=== PATIENT | female | born 1945 | race Caucasian/White ===

== ENCOUNTER 2022-08-21 16:07 | Inpatient (IN) | payer MEDICARE, OTHER ==
[~2022-08-21] VITALS: Ht 157.5 cm; Wt 86.2 kg
[2022-08-21] VITALS (8 sets, daily range): BP systolic 93–116; BP diastolic 31–64; PULSE 43–82; RESP 16–25; TEMP 96.9; O2SAT 91–100
--- NOTE | 2022-08-21 16:10 | NUR ---
PT BIBA TRACHED WITH PORTEX 8.0. PT VENT SETTINGS AC/PRVC MHC934% VT350 RR16 +5 ALARMS ARE SET AND AUDIBLE TO ENVIROMENT . VENT IS PLUGGED INTO RED OUTLET, BRAKE IS ON, AMBU BAG AT BEDSIDE. PT HAS THICK AMOUNT OF BLOOD TINGED YELLOW SECRETIONS. BREATH SOUNDS ARE COARSE WITH GOOD CHEST RISE NOTED. ER DOCTOR ERNESTINA NOTIFIED. WILL CONTINUE TO MONITOR PT THROUGHOUT SHIFT.
--- NOTE | 2022-08-21 16:35 | NUR ---
77 yo/f biba from [facility] w c/o desat to low 80s on baseline vent settings xapprox 2 hours ago. pt now w updated vent settings of fio2 65% rate 16, vt 350 prvc o2 sat 90-93% other vss. pt trach to vent, awake gcs 10, gtube, BL arms edematous, BL peguero wounds +coccyx wound. pmh: RESP FAILURE, ESRD, DM, QUADRAPLEGIA, STROKE (SEE CHART)
--- NOTE | 2022-08-21 17:00 | NUR ---
VENT SETTINGS OF FIO2 65% RATE 16, VT 350, PRVC O2 SAT 93%.
[2022-08-21 17:10] LABS: BASOPHILS # (AUTO) 0.1 K/uL (0.00-0.22); BASOPHILS % (AUTO) 0.4 % (0.0-2.0); EOSINOPHILS # (AUTO) 0.1 K/uL (0-0.4); EOSINOPHILS % (AUTO) 0.7 % (0.0-4.0); HEMATOCRIT 26.3 % (36-48); HEMOGLOBIN 8.5 g/dL (12.0-16.0); LYMPHOCYTES # (AUTO) 2.6 K/uL (2.5-16.5); MEAN CORPUSCULAR HEMOGLOBIN 32 pg (27-31); MEAN CORPUSCULAR HGB CONC 32 g/dL (33-37); MEAN CORPUSCULAR VOLUME 97.7 fL (80-94); MONOCYTES # (AUTO) 1.4 K/uL (0.8-1.0); MONOCYTES % (AUTO) 9.7 % (1.7-9.3); NEUTROPHILS # (AUTO) 10.2 K/uL (1.8-7.7); NEUTROPHILS % (AUTO) 71.2 % (42.2-75.2); PLATELET COUNT (AUTO) 278 K/uL (140-450); RED BLOOD CELL COUNT(AUTO) 2.69 MIL/uL (4.20-5.40); RED CELL DISTRIBUTION WIDTH 20.1 % (11.6-13.7); WHITE BLOOD COUNT (AUTO) 14.3 K/uL (4.8-10.8)
[2022-08-21 17:25] LABS: ALBUMIN 1.5 g/dL (3.4-5.0); ANION GAP 8.7 (8-16); ASPARTATE AMINOTRANSFERASE 19 U/L (15-37); CARBON DIOXIDE 34.7 mmol/L (21-32); CHLORIDE 99 mmol/L (98-107); CREATININE 2.5 mg/dL (0.6-1.3); GLUCOSE 113 mg/dL (74-106); POTASSIUM 3.4 mmol/L (3.5-5.1); SODIUM SERUM 139 mmol/L (136-145); TOTAL BILIRUBIN 0.5 mg/dL (0.0-1.0); UREA NITROGEN, BLOOD 38 mg/dL (7-18)
[2022-08-21 17:31] LABS: PROTHROMBIN TIME 11.1 secs (10.8-13.4)
[2022-08-21 17:33] LABS: THYROID STIMULATING HORMONE 43.25 uIU/mL (0.34-3.74)
--- NOTE | 2022-08-21 17:37 | NUR ---
NANCY SWAB COLLECTED AND SENT TO LAB.
--- NOTE | 2022-08-21 17:52 | NUR ---
XRAY AT BEDSIDE
[2022-08-21] MEDS ORDERED: VANCOMYCIN 1,000 MG in DEXTROSE 5% 250 ML IV ONE (18:10)
--- NOTE | 2022-08-21 18:30 | NUR ---
Note maude in EDM - 08/21/22 at 1847 by [id number] # 16 FR Mckeon catheter with 10 ml utilizing sterile technique. Immediate return of 5 ml THICK YELLOW urine noted. Bedside drainage bag placed below level of bladder. Urine sample collected and sent to lab. Pt tolerated procedure WELL.
--- NOTE | 2022-08-21 18:30 | NUR ---
# 16 FR Mckeon catheter with 10 ml utilizing sterile technique. Immediate return of 5 ml THICK YELLOW urine noted. Bedside drainage bag placed below level of bladder. Urine sample collected and sent to lab. Pt tolerated procedure WELL. INSERTED BY KRYSTAL SANDOVAL.
--- NOTE | 2022-08-21 18:46 | NUR ---
WOUND PHOTOS TAKEN AND SENT TO CHARGE
--- NOTE | 2022-08-21 19:04 | NUR ---
DEEPALI CRAIN IN REGARDS TO PT BP.
[2022-08-21] MEDS ORDERED: NACL 0.9% 1,000 ML IV SCH (19:10)
[2022-08-21] MEDS ORDERED: VANCOMYCIN PER PHARMACY MC PRN (19:10)
--- NOTE | 2022-08-21 19:20 | NUR ---
REPORT TO KRYSTAL BRODERICK, ABX CEFTAZIDIME HANDED TO KRYSTAL FRANCE.
[2022-08-21] MEDS ORDERED: ZINC-31 (19:33)
[2022-08-21] MEDS ORDERED: ZINC220C9 PO (19:33)
[2022-08-21] MEDS ORDERED: NEP PO (19:36)
[2022-08-21] MEDS ORDERED: METO-485 PO (19:38)
[2022-08-21] MEDS ORDERED: FERR75LI22 PO (19:40)
[2022-08-21] MEDS ORDERED: VANCOMYCIN 1,000 MG VIAL ONE (19:48)
--- NOTE | 2022-08-21 20:10 | NUR ---
Patient will be admitted to care of Dr. Corral. Admited to ICU. Will go to room 6. Belongings list completed. Report to Patricia RICE.
--- NOTE | 2022-08-21 20:30 | NUR ---
RECEIVED REPORT FROM ER NURSE ROMÁN, PT TRACH TO VENT. AC/VC- FIO2-65 %, VT-350, RATE-16, PEEP-6. RESPIRATION EVEN AND UNLABORED. ACCESSES ON THE LEFT IJ 18G, LEFT FOOT 24G. SKIN WARM AND DRY. PITTING EDEMA +3 OBSERVED TO EXTREMITIES. SEE WOUND DOCUMENTATION. LEWIS CATHETER IN PLACE WITH PUS LIKE OBSERVED ON THE TIP. SAFETY MEASURES IN PLACE.
[2022-08-21] MEDS ORDERED: PIPERACILLIN/TAZOBACTAM 3.375 GM in DEXTROSE 5% 50 ML IV SCH (21:00)
[2022-08-21] MEDS ORDERED: PIPERACILLIN/TAZOBACTAM 2.25 GM VIAL IV ONE (21:15)
--- NOTE | 2022-08-21 21:17 | NUR ---
PHONE CALL TO PTS STANLEY AYERS [phone]; NO ANSWER,LEFT MESSAGE TO CALL CALENDER ROLL OPERATOR FOR ADDITIONAL INFORMATIONS RE PTS HX
[2022-08-21] MEDS: PIPERACILLIN/TAZOBACTAM 2.25 GM in DEXTROSE 5% 50 ML IV SCH (21:32)
--- NOTE | 2022-08-21 21:56 | NUR ---
CALLED DR. ESPINO, REPORTED THAT PT. RECEIVED FROM ER. MENTIONED TO DR. ESPINO THAT WE RECEIVED PT. FROM ER WITH LWEIS CATHETER, PERIPHERAL IV TO LEFT LOWER LEG, PERIPHERAL IV TO LEFT JUGULAR AND COLLECTED SPUTUM SENT TO LAB FROM ER. DR. ESPINO STATED " YEAH PUT THOSE ORDERS ". ALSO REPORTED PT. TIP OF LEWIS CATHETER NOTED PUS AND HE ORDERED TO NOTIFY MULTIFOCAL BUTTON GRINDER.
--- NOTE | 2022-08-21 23:17 | NUR ---
STITCH BONDING MACHINE OPERATOR NOTIFIED (DR. LEMA), UPDATED ABOUT PT'S LEWIS CATHETER THAT HAS PUS LIKE ON THE TIP. ORDERED TO REMOVE THE LEWIS CATHETER.
[2022-08-22] VITALS (25 sets, daily range): BP systolic 86–114; BP diastolic 42–68; PULSE 64–91; RESP 11–21; TEMP 96.7–97.9; O2SAT 96–100
--- NOTE | 2022-08-22 05:00 | NUR ---
MORNING CARE PROVIDED, ORAL CARE DONE. PT REPOSITIONED. CHANGED LINEN. NO DISTRESS NOTED.
[2022-08-22] MEDS ORDERED: PIPERACILLIN/TAZOBACTAM 2.25 GM VIAL IV ONE (05:01)
[2022-08-22 05:15] LABS: BASOPHILS # (AUTO) 0.1 K/uL (0.00-0.22); BASOPHILS % (AUTO) 0.5 % (0.0-2.0); EOSINOPHILS # (AUTO) 0.1 K/uL (0-0.4); EOSINOPHILS % (AUTO) 0.5 % (0.0-4.0); HEMATOCRIT 24.4 % (36-48); HEMOGLOBIN 7.9 g/dL (12.0-16.0); LYMPHOCYTES # (AUTO) 3.2 K/uL (2.5-16.5); LYMPHOCYTES % (AUTO) 14.6 % (20.5-51.1); MEAN CORPUSCULAR HEMOGLOBIN 32 pg (27-31); MEAN CORPUSCULAR HGB CONC 32 g/dL (33-37); MEAN CORPUSCULAR VOLUME 98.1 fL (80-94); MONOCYTES # (AUTO) 1.9 K/uL (0.8-1.0); MONOCYTES % (AUTO) 8.9 % (1.7-9.3); NEUTROPHILS # (AUTO) 16.4 K/uL (1.8-7.7); NEUTROPHILS % (AUTO) 75.5 % (42.2-75.2); PLATELET COUNT (AUTO) 206 K/uL (140-450); RED BLOOD CELL COUNT(AUTO) 2.48 MIL/uL (4.20-5.40); RED CELL DISTRIBUTION WIDTH 20.2 % (11.6-13.7); WHITE BLOOD COUNT (AUTO) 21.7 K/uL (4.8-10.8)
[2022-08-22] MEDS: PIPERACILLIN/TAZOBACTAM 2.25 GM in DEXTROSE 5% 50 ML IV SCH ×3 (05:26→20:50)
[2022-08-22 05:32] LABS: ANION GAP 11.7 (8-16); CHLORIDE 100 mmol/L (98-107); CREATININE 2.7 mg/dL (0.6-1.3); GLUCOSE 82 mg/dL (74-106); POTASSIUM 3.7 mmol/L (3.5-5.1); SODIUM SERUM 139 mmol/L (136-145); UREA NITROGEN, BLOOD 41 mg/dL (7-18)
--- NOTE | 2022-08-22 07:15 | NUR ---
Opening Received report on pt. Pt asleep, arousable, trach to vent FiO2 45%. Pt with no signs of pain or acute distress. IV TKO infusing to left foot, no infiltration noted. Dialysis catheter right chest. IV left EJ, intact, patent, no infiltration noted. Multiple skin issues noted, BLE and BUE with pitting edema. 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 Pt is anuric. Addendum: 08/22/22 at 0925 by Agency 02 KRYSTAL RN Bilateral heels offloaded with pillow.
[2022-08-22] MEDS ORDERED: VANCOMYCIN PER PHARMACY MC PRN (11:20)
[2022-08-22] MEDS ORDERED: DEXTROSE 50% 50 ML SYR IVP PRN ×2 (11:25→11:40)
[2022-08-22] MEDS ORDERED: INSULIN LISPRO SLIDING SCALE 100 UNITS/ML VIAL SUBQ PRN (11:40)
[2022-08-22] MEDS ORDERED: ALBUMIN HUMAN 5 % 250 ML IV SCH ×2 (12:00→15:00)
[2022-08-22] MEDS: BLOOD GLUCOSE MONITORING 1 DEV DEV FS SCH ×3 (12:22→23:55)
--- NOTE | 2022-08-22 13:05 | NUR ---
Page out to Dr. Lopez for PICC line clearance, spoke with exchange.
--- NOTE | 2022-08-22 14:48 | NUR ---
financial analyst at bedside to initiate dialysis. Consent form signed and witnessed with 2nd RN, placed in chart.
[2022-08-22] MEDS ORDERED: BLOOD GLUCOSE MONITORING 1 DEV DEV FS SCH (16:30)
[2022-08-22] MEDS: MIDODRINE 5 MG TAB GT SCH ×2 (17:00→17:32)
--- NOTE | 2022-08-22 18:03 | NUR ---
Dialysis completed, 1L out. Pt in no signs of pain or distress.
--- NOTE | 2022-08-22 18:08 | NUR ---
Dr. Nettles rounding on pt, states to not use GT on pt and to insert NGT to suction. Dr. Nettles also states to not pass meds or feeding through NGT and needs TPN and PICC line.
[2022-08-22] MEDS ORDERED: TPN PER PHARMACY MC PRN (18:20)
--- NOTE | 2022-08-22 19:10 | NUR ---
RECEIVED REPORT FROM [facility] NURSE[facility],RN FOR CONTINUITY OF CARE. ALL CARES ASSUMED. RECEIVED ON BED ON SEMI-GARDNER'S POSITION WITH SIDERAILS RAISED UP. PT IS LETHARGIC, AROUSABLE TO STIMULI. WITH ETT TO VENT ON PRVC SETTINGS, RATE-16CPM TV-350ML FIO2-45% PEEP-6. WITH SUBCLAVIAN DIALYSIS ACCESS WITH DRY AND INTACT DRESSING. WITH LEFT AC IV ACCESS GAUGE 18 FLOWING TO NS AT TKO - PATENT AND INTACT. WITH ANOTHER IV ACCESS OVER LEFT FOOT GAUGE 24 ATTACHED TO SALINE LOCK. ON A-FIB ON TRUCK BODY REPAIRER. WITH G-TUBE IN PLACE OOZING WITH PUS ON SURROUNDING SKIN AND TISSUES- NO DRESSING (REMOVED BY DR. MODI). WITH WOUNDS ALSO NOTED ON SACRUM AND LEGS - WITH DRY AND INTACT DRESSING. SAFETY PRECAUTIONS IN PLACE. WILL MONITOR PT CLOSELY.
--- NOTE | 2022-08-22 19:29 | NUR ---
Closing No acute events during shift. Pt currently getting PICC line placement. Endorsed plan of care to RN
--- NOTE | 2022-08-22 19:30 | NUR ---
PICC LINE NURSE RANDI RICE AT BEDSIDE FOR PICC LINE INSERTION.
--- NOTE | 2022-08-22 19:38 | NUR ---
RECEIVED PT ON VENT PLUGGED INTO RED OUTLET. AMBU BAG AT BEDSIDE, ALARMS ARE AUDIBLE, AND SUCTION IS SET-UP. SETTINGS ARE PRVC 24, VT 450, PEEP +5, FiO2 45%. BREATH SOUNDS WERE COARSE, SUCTIONED MODERATE AMOUNT OF THICK,WITE/BLOOD TINGED SECRETIONS,VIA ENDOTRACHEAL TUBE. SXN MOD AMT OF WHITE SECRETIONS ORALLY.PT RESTING COMFORTABLY AND TOLERATIG VENT SETTINGS. WILL CONTINUE TO MONITOR PT.
--- NOTE | 2022-08-22 19:50 | NUR ---
PICC LINE INSERTION DONE. FACILITATED XRAY TO CONFIRM PLACEMENT.
--- NOTE | 2022-08-22 19:55 | NUR ---
PICC LINE READY TO USE CONFIRMED BY XRAY.
--- NOTE | 2022-08-22 22:43 | NUR ---
RECEIVED CALL FROM REQUESTING HELP. TRANSPORTED PT TO CT FOR ABDOMINAL SCAN. TRANSPORTED WITHOUT INCIDENT.
--- NOTE | 2022-08-22 23:01 | NUR ---
PT TO CT FOR CT OF THE ABDOMEN W/O CONTRAST. PHYSICAL THERAPY AIDE WITH PT.
--- NOTE | 2022-08-22 23:16 | NUR ---
PT ARRIVED BACK FROM CT WITH BELT BACK OPERATOR.
[2022-08-23] VITALS (30 sets, daily range): BP systolic 77–135; BP diastolic 39–86; PULSE 73–104; RESP 16–36; TEMP 96.5–97.9; O2SAT 88–100
--- NOTE | 2022-08-23 01:00 | NUR ---
VENT WITH PERSISTENT ALARM - HIGH PEAK PRESSURE. SUCTIONED SECRETIONS. HOB RAISED. PT IS ACTIVELY AWAKE WITH INCREASED RESP RATE OF 30-35 CPM OBSERVED. SPO2 97-100%. RT JOCELYN INFORMED. Addendum: 08/23/22 at 0739 by CLAUDIA YO RN INCORRECT PATIENT.
--- NOTE | 2022-08-23 02:06 | NUR ---
BT COMPLETED. NO REACTIONS OBSERVED. WILL MONITOR CLOSELY FOR ANY POST BT REACTIONS. TEMP - 96.7 F HR - 106 BPM RR- 27 CPM BP - 102/63 SPO2 - 100% Addendum: 08/23/22 at 0739 by CLAUDIA YO RN INCORRECT PATIENT
[2022-08-23 05:35] LABS: BASOPHILS % (AUTO) 0.2 % (0.0-2.0); EOSINOPHILS # (AUTO) 0.1 K/uL (0-0.4); EOSINOPHILS % (AUTO) 0.6 % (0.0-4.0); HEMATOCRIT 24.2 % (36-48); HEMOGLOBIN 7.6 g/dL (12.0-16.0); LYMPHOCYTES # (AUTO) 2.8 K/uL (2.5-16.5); MEAN CORPUSCULAR HEMOGLOBIN 32 pg (27-31); MEAN CORPUSCULAR HGB CONC 31 g/dL (33-37); MEAN CORPUSCULAR VOLUME 101.5 fL (80-94); MONOCYTES # (AUTO) 1.7 K/uL (0.8-1.0); NEUTROPHILS # (AUTO) 9.4 K/uL (1.8-7.7); NEUTROPHILS % (AUTO) 67.2 % (42.2-75.2); PLATELET COUNT (AUTO) 195 K/uL (140-450); RED BLOOD CELL COUNT(AUTO) 2.39 MIL/uL (4.20-5.40); RED CELL DISTRIBUTION WIDTH 20.9 % (11.6-13.7); WHITE BLOOD COUNT (AUTO) 13.9 K/uL (4.8-10.8)
[2022-08-23] MEDS: BLOOD GLUCOSE MONITORING 1 DEV DEV FS SCH ×3 (06:00→17:30)
[2022-08-23 06:01] LABS: MAGNESIUM 2.1 mg/dL (1.8-2.4)
[2022-08-23 06:03] LABS: ANION GAP 10.8 (8-16); CARBON DIOXIDE 30.8 mmol/L (21-32); CHLORIDE 100 mmol/L (98-107); CREATININE 1.9 mg/dL (0.6-1.3); GLUCOSE 76 mg/dL (74-106); POTASSIUM 3.6 mmol/L (3.5-5.1); SODIUM SERUM 138 mmol/L (136-145); UREA NITROGEN, BLOOD 24 mg/dL (7-18)
--- NOTE | 2022-08-23 06:45 | NUR ---
SPONGE BATH DONE AT BEDSIDE. LINENS CHANGED AND DRESSINGS CHANGED.
--- NOTE | 2022-08-23 06:50 | NUR ---
NGT INSERTION ATTEMPTED ON BOTH NARES BUT RESISTANCE FELT. INFORMED DAYSHIFT NURSE.
--- NOTE | 2022-08-23 07:25 | NUR ---
Opening Received report on pt. Pt in no signs of distress or pain, trach to vent. Pt awake and tracks, sometimes follows commands. Pt with multiple skin issues present, pitting edema BUE and BLE +3. PICC line in LOWELL. HOB elevated, offloaded heels with pillows, bilateral heel protectors in place.
--- NOTE | 2022-08-23 07:30 | NUR ---
REPORT GIVEN TO [facility] NURSEKENTON RN FOR CONTINUITY OF CARE. ALL QUESTIONS ANSWERED.
--- NOTE | 2022-08-23 07:30 | NUR ---
Removed GT, applied skin prep, and placed ostomy bag over site. Noted yellow purulent drainage.
[2022-08-23] MEDS: PIPERACILLIN/TAZOBACTAM 2.25 GM in DEXTROSE 5% 50 ML IV SCH ×3 (07:34→20:17)
[2022-08-23] MEDS: LEVOTHYROXINE 0.1 MG TAB PO SCH (07:59)
[2022-08-23] MEDS: ALBUTEROL SULFATE/IPRATROPIU 3 ML SOL IH PRN ×2 (08:07→13:33)
--- NOTE | 2022-08-23 08:07 | NUR ---
RECEIVED ON A TigglySCAPE R860 VENTILATOR PLUGGED INTO RED OUTLET TOLERATING WELL WITHOUT ADVERSE REACTIONS NOTED TO A PORTEX #8 AIRWAY SECURED WITH A TONE TRACH TIE CUFF PRESSURE CHECKED NOTED AMBU BAG AT BEDSIDE STABLE GOOD CHEST RISE DEEP TRACHEAL SUCTIO FOR MODERATE SEMI THICK YELLOW SECRETIONS AIRWAY PATENT GASATERIA ATTENDANT TO EVALUATE FOR MODE CHANGE
[2022-08-23] MEDS: MIDODRINE 5 MG TAB GT SCH ×3 (08:09→16:20)
--- NOTE | 2022-08-23 08:22 | NUR ---
CHANGED MODE TO AC TOLERATING WELL WITHOUT COMPLICATIONS NOTED GOOD CHEST RISE AIRWAY PATENT
[2022-08-23] MEDS: PANTOPRAZOLE 40 MG INJ VIAL IVP SCH (08:25)
--- NOTE | 2022-08-23 08:51 | NUR ---
PATIENT HAS BEEN SCREENED AND CATEGORIZED HIGH NUTRITION RISK. PATIENT WILL BE SEEN WITHIN 1-2 DAYS OF ADMISSION. 08/22/22-08/23/22 FNS CONSULT RECEIVED FOR PATIENT FOR WOUNDS ON 08/23/22. FRANK MAGDAL[address]
[2022-08-23] MEDS ORDERED: VANCOMYCIN 1,000 MG in DEXTROSE 5% 250 ML IV SCH (09:00)
[2022-08-23] MEDS ORDERED: DEXTROSE 5% 1,000 ML IV SCH (10:30)
--- NOTE | 2022-08-23 11:00 | NUR ---
STABLE GOOD CHEST RISE AIRWAY PATENT SATURATION 100% ON FIO2 OF 35% PEEP 5cmH2O TITRATED FIO2 TO 30% KENTON/POTATO PICKER NOTIFIED
--- NOTE | 2022-08-23 13:00 | NUR ---
Dr. Ford rounding on pt. Informed regarding resistance during NGT insertion attempt x2. Dr. Ford inserted 16 Fr salem sump to left nare, verified placement with CXR and connected NGT to low intermittent suction.
--- NOTE | 2022-08-23 13:28 | NUR ---
08/23/22 RD INITIAL ASSESSMENT COMPLETED PLEASE REFER TO NUTRITION ASSESSMENT UNDER CARE ACTIVITY FOR ESTIMATED NUTRITIONAL NEEDS. 1. CONTINUE NPO DIET TOLERATED, PATIENT TO START TPN TODAY. 2. ONCE MEDICALLY APPROPRIATE PLEASE PROVIDE PATIENT WITH PROSOURCE BID FOR WOUNDS. THIS WILL PROVIDE 120 CALORIES AND 30 GRAMS OF PROTEIN. 3. RD TO FOLLOW-UP 2-3 DAYS, HIGH RISK FRANK MAGDALENO RD
--- NOTE | 2022-08-23 13:33 | NUR ---
STAB;E GOOD CHEST RISE DEEP TRACHEAL SUCTION FOR COPIOUS SEMI THICK YELLOW/GREEN SECRETIONS AIRWAY PATENT
--- NOTE | 2022-08-23 14:00 | NUR ---
DR. JESUS CAMPOVERDE ROUNDING AT BEDSIDE; REVIEWED TRANSFERRED VENTILATOR SETTINGS TO ED SETTINGS TO CURRENT SETTINGS; REVIEWED BREATH SOUNDS AND EXUDATION OF SECRETIONS; REVIEWED HHN THERAPY FREQUENCY; ELECTRONIC INDUSTRIAL CONTROLS MECHANIC NOTED TO FOREMENTIONED MD OF INTERMITTENT TACHYPNEA; NO FURTHER RESPIRATORY ORDERS GIVEN
--- NOTE | 2022-08-23 15:55 | NUR ---
STABLE GOOD CHEST RISE RN AT BEDSIDE FOR URINE CATHETER CHECK/REPLACEMENT
--- NOTE | 2022-08-23 16:00 | NUR ---
Ultrasound abdomen being done at bedside. Attempted camacho insertion for urine collection, unsuccessful, removed camacho and perform oswaldo care and pad change.
--- NOTE | 2022-08-23 17:10 | NUR ---
[employer] TURRET PRESS OPERATOR was able to speak to pts. Rn at the Sub [facility] portion of [facility]. Pt. has been there approx, 4-6 months. Please refer to discharge planning assessment. As per Rn. Tovar, pt. will return to this facility upon discharge.
[2022-08-23] MEDS: INSULIN LISPRO SLIDING SCALE 100 UNITS/ML VIAL SUBQ PRN (17:31)
[2022-08-23] MEDS: NOREPINEPHRINE 8 MG in DEXTROSE 5% 250 ML IV PRN (17:37)
--- NOTE | 2022-08-23 18:21 | NUR ---
Inserted 16 Fr camacho catheter per MD order with aseptic technique. No urine output noted for collection to lab.
--- NOTE | 2022-08-23 18:23 | NUR ---
Dr. Cox rounding on pt, informed regarding GT site culture.
--- NOTE | 2022-08-23 18:44 | NUR ---
Closing Pt in no signs of pain or distress, trach to vent. Pt with camacho catheter, no urine output noted. GT site with ostomy bag draining green fluid and some brown fluid. Pt also on levophed drip, had borderline low MAP. Will endorse plan of care to RN.
--- NOTE | 2022-08-23 19:10 | NUR ---
TRANSFER OF CARE FROM DAY SHIFT, REPORT RECEIVED FROM KRYSTAL FUNG. PATIENT RECIEVED IN BED AWAKE, TRACH TO VENT WITH THE FOLLOWING SETTINGS: AC/VC, FIO2 = 30%, VT= 350, R = 16, PEEP = 5. PATIENT HAS NG TUBE TO LEFT NARE WITH SUCTION. PATIENT HAS PERMACATH LOCATED IN THE UPPER RIGHT CHEST WALL. PATIENT HAS LOWELL PICC LINE WITH THE FOLLOWING MEDICATIONS CURRENTLY INFUSING: LEVOPHED 8MG @ 2MCG/MIN AND D5 @75ML/HR. PER DAY SHIFT RN, PATIENT HAS ORDERS FOR TPN AND D5 WILL NEED TO BE STOPPED. PATIENT HAS THE FOLLOWING WOUNDS ON HER BODY: SACRUM = PRESSURE ULCER ABDOMEN = SURGICAL WOUND WITH MODERATE PURULENT DRAINAGE (GREEN) WHICH IS DRAINING INTO A COLOSTOMY BAG. BILATERAL POSTERIOR LEGS = SKIN TEARS. PATIENT HAS LEWIS CATHETER IN PLACE, CURRENTLY NO URINE OUTPUT. PATIENT HAS THE FOLLOWING VITALS AT START OF SHIFT: HR = 91, O2 SAT = 99%, BP = 136/62, R = 16, BP = 136/62, TEMP = 97.2F. WILL CONTINUE TO MONITOR PATIENT FOR ANY CHANGES IN CONDITION AND NOTIFY MD EXPEDITIOUSLY
--- NOTE | 2022-08-23 19:25 | NUR ---
RT AT BEDSIDE, FIO2 CHANGED FROM 30% TO 24%
[2022-08-23] MEDS ORDERED: MULTIVITAMIN IV SCH ×3 (20:00)
[2022-08-23] MEDS ORDERED: DEXTROSE IV SCH ×3 (20:00)
[2022-08-23] MEDS ORDERED: AMINO ACIDS 8.5% IV SCH ×3 (20:00)
--- NOTE | 2022-08-23 20:41 | NUR ---
DR. MODI AT BEDSIDE, NO NEW ORDERS RECEIVED
[2022-08-24] VITALS (31 sets, daily range): BP systolic 75–195; BP diastolic 32–151; PULSE 80–113; RESP 16–37; TEMP 97.3–98.3; O2SAT 84–99
[2022-08-24] MEDS: BLOOD GLUCOSE MONITORING 1 DEV DEV FS SCH ×3 (00:20→13:30)
[2022-08-24] MEDS: INSULIN LISPRO SLIDING SCALE 100 UNITS/ML VIAL SUBQ PRN ×3 (00:21→16:02)
--- NOTE | 2022-08-24 02:33 | NUR ---
PATIENT WITH BP = 141/109; STOPPED LEVOPHED
--- NOTE | 2022-08-24 03:03 | NUR ---
PATIENT WITH BP = 84/37, LEVOPHED WAS RESTARTED Addendum: 08/24/22 at 0650 by Luz Maria Lopez RN LEVOPHED 8MG @ 2MCG/MIN
--- NOTE | 2022-08-24 03:54 | NUR ---
RT AT BEDSIDE, NO CHANGES TO VENT SETTINS
[2022-08-24] MEDS: PIPERACILLIN/TAZOBACTAM 2.25 GM in DEXTROSE 5% 50 ML IV SCH (04:39)
[2022-08-24 05:29] LABS: BASOPHILS % (AUTO) 0.3 % (0.0-2.0); EOSINOPHILS # (AUTO) 0.1 K/uL (0-0.4); EOSINOPHILS % (AUTO) 0.6 % (0.0-4.0); HEMATOCRIT 23.7 % (36-48); HEMOGLOBIN 7.6 g/dL (12.0-16.0); LYMPHOCYTES # (AUTO) 2.6 K/uL (2.5-16.5); LYMPHOCYTES % (AUTO) 19.3 % (20.5-51.1); MEAN CORPUSCULAR HEMOGLOBIN 32 pg (27-31); MEAN CORPUSCULAR HGB CONC 32 g/dL (33-37); MONOCYTES # (AUTO) 1.7 K/uL (0.8-1.0); MONOCYTES % (AUTO) 12.9 % (1.7-9.3); NEUTROPHILS # (AUTO) 8.8 K/uL (1.8-7.7); NEUTROPHILS % (AUTO) 66.9 % (42.2-75.2); PLATELET COUNT (AUTO) 197 K/uL (140-450); RED BLOOD CELL COUNT(AUTO) 2.37 MIL/uL (4.20-5.40); RED CELL DISTRIBUTION WIDTH 20.1 % (11.6-13.7); WHITE BLOOD COUNT (AUTO) 13.2 K/uL (4.8-10.8)
[2022-08-24] MEDS: LEVOTHYROXINE 0.1 MG TAB PO SCH (06:11)
[2022-08-24 06:14] LABS: ANION GAP 14.1 (8-16); CARBON DIOXIDE 28.7 mmol/L (21-32); CHLORIDE 93 mmol/L (98-107); CREATININE 2.6 mg/dL (0.6-1.3); GLUCOSE 224 mg/dL (74-106); POTASSIUM 3.8 mmol/L (3.5-5.1); SODIUM SERUM 132 mmol/L (136-145); UREA NITROGEN, BLOOD 29 mg/dL (7-18)
[2022-08-24 06:24] LABS: MAGNESIUM 2.1 mg/dL (1.8-2.4); PHOSPHORUS 3.3 mg/dL (2.5-4.9)
--- NOTE | 2022-08-24 06:38 | NUR ---
PATIENT WITH BP = 77/34, INCREASED LEVOPHED TO 4MCG/MIN
--- NOTE | 2022-08-24 06:39 | NUR ---
LEVOTHYROXINE HELD, THIS IS A PO MEDICATION. PATIENT HAS NG TUBE TO SUCTION BUT HAS ORDERS TO REMAIN NPO, EVEN FOR MEDICATIONS
[2022-08-24] MEDS: ALBUTEROL SULFATE/IPRATROPIU 3 ML SOL IH PRN (06:51)
--- NOTE | 2022-08-24 07:38 | NUR ---
TRANSFER OF CARE TO DAY SHIFT, REPORT ENDORSED TO MARS
[2022-08-24] MEDS: MIDODRINE 5 MG TAB GT SCH ×4 (09:00→17:00)
[2022-08-24] MEDS: PANTOPRAZOLE 40 MG INJ VIAL IVP SCH (09:34)
[2022-08-24 10:07] LABS: HEPATITIS B SURFACE ANTIBODY Non Reactive (.); HEPATITIS B SURFACE ANTIGEN Negative (Negative)
--- NOTE | 2022-08-24 10:07 | NUR ---
WOUND CARE NOTE: SKIN ASSESSMENT DONE ON THIS 77 Y/O PT. WITH PRIMARY NURSE DORITA. PT. ADMITTED WITH MULTIPLE WOUNDS INCLUDING SACRALCOCCYX UN-STAGEABLE. SKIN IS WARM AND DRY, BILATERAL UPPER ARM MULTIPLE ECCHYMOSIS+2 EDEMA, TRUNK OF BODY AND BILATERAL LOWER EXTREMITY +2 EDEMA. DORSAL PEDAL PULSES PRESENT AND DIMINISHES. CAPILLARY REFILLED >3 SEC. X 10 TOES. F/C PATENT WITH NO URINE OUT PUT OBSERVED. PER PRIMARY RN PT. PLANNED FOR HD. INTEGUMENTARY: -LIPS AND ORAL MUCOSA DRY AND CLEAN. SKIN INTACT. -ABDOMEN DISTENDED, SOFT -UPPER ARMS MULTIPLE ECCHYMOSIS/ DISCOLORATION POSSIBLE FROM BLOOD DRAW -MOISTURE ASSOCIATED SKIN DAMAGE(MASD) TO: B/L GROINS, MEDIAL THIGHS AND BUTTOCKS, SKIN REDNESS -PRESSURE INJURY UN-STAGEABLE, SACROCOCCYX 2X1CM, WOUND BED 100% BROWN TISSUE, MOIST, NO ODOR, WOUND EDGE FLAT, KWAKU-WOUND SKIN MOIST SURROUNDING REDNESS INDICATED FURTHER DAMAGE -PRESSURE INJURY UN-STAGEABLE, THORACIC SPINE 1X1CM, WOUND BED 100% YELLOW SLOUGH TISSUE, MOIST, NO ODOR, WOUND EDGE FLAT, KWAKU-WOUND SKIN MOIST SURROUNDING REDNESS INDICATED FURTHER DAMAGE - PVD LEFT CALF, 3.5X1.5CM WOUND BED IS 100% BROWN TISSUE, MOIST, NO ODOR, KWAKU WOUND DRY, PEELING SKIN. - PVD RIGHT CALF, 1X0.5CM WOUND BED IS 100% BROWN TISSUE, MOIST, NO ODOR, KWAKU WOUND DRY, PEELING SKIN. -ABDOMINAL SEVER MASD SKIN RASHES, RED PEELING ENTIRE AREA [id number]. WITH 50% BROWN/YELLOW SLOUGH TISSUE. OSTOMY BAG IN PLACE FOR DRAINAGE POSSIBLE GASTROCUTANEOUS FISTULA AND PER SURGEON NO DEBRIDEMENT AT THIS TIME RECOMMENDATIONS: -OSTOMY BAG CUT TO FIT GT SITE TO COLLECT DRAINS -CLEANSE ABDOMINAL WALL SKIN WITH MILD SOAP AND WATER, PAT DRY, APPLY NYSTATIN CR. BID AND BASILIO -CLEANSE MID BACK AND SACRALCOCCYX WOUNDS WITH NS, PAT DRY, PACK WOUNDS WITH ALGINATE DRESSING AND Z GUARD TO KWAKU WOUND SKIN, COVER WITH DRY DRESSING QD AND PRN IF SOILING -APPLY Z GUARD TO B/L GROINS, MEDIAL THIGHS AND BUTTOCKS BID AND PRN IF SOILING -LEFT AND RIGHT CALVES WITH BETADINE SWAP APPLY MOIST BETADINE 2X2 GAUZES AND COVER WITH DRY DRESSING QD AND PRN IF SOILING -POSITIONING: TURN AND REPOSITION PATIENT Q 2H OR SOONER USE PILLOWS TO KEEP BONY PROMINENCES FROM DIRECT CONTACT WITH SURFACES USE REPOSITIONING WEDGES TO PROVIDE 30-DEGREE ANGLE FOR SIDE LYING POSITIONS OFFLOADING OR FOAM DRESSING TO ALL TUBING TO PREVENT MEDICAL DEVICES RELATED PRESSURE INJURY -RE-EVALUATING AND MANAGING INCONTINENCE MONITOR SKIN CONDITION DURING POSITION CHANGE DO NOT MASSAGE REDNESS, BONY PROMINENCES FREQUENT KWAKU-CARE AND PROVIDE BARRIER CREAMS PRN IF SOILING MOISTURE CONTROL BY F/C AND ABSORBENT PAD, KEEP SKIN DRY AND PROTECT FROM FRICTION -MANAGE FRICTION/SHEAR/MOBILITY KEEP HOB AT THE LOWEST LEVEL OF ELEVATION NO MORE THAN 30 DEGREE UNLESS OTHERWISE CONTRAINDICATED USE LIFT SHEET OR TRANSFER DEVICE TO MOVE PATIENT AND PREVENT LATERAL SHEER. PROTECT HEELS, ELBOWS BONY PROMINENCES WITH SKIN BERRIES OR FOAM DRESSING IF EXPOSED TO FRICTION OFFLOAD BILATERAL HEELS BY PLACING PILLOWS UNDER CALVES AT ALL TIMES, UNLESS OTHERWISE CONTRAINDICATED -PRESSURE REDISTRIBUTION SURFACE THERAPY MAURICE ISOFLEX RODRIGO MATTRESS -NUTRITION: PLEASE FOLLOW RD RECOMMENDATIONS AND OFFER NUTRITION SUPPLEMENTS IF ORDERED.
[2022-08-24] MEDS: EPOETIN ALFA-EPBX 10,000 UNITS/ML VIAL SUBQ SCH (11:40)
--- NOTE | 2022-08-24 12:16 | NUR ---
DC PLANNING A 77YO FEMALE PATIENT TRACH DEPENDENT RESIDENT OF [facility] ADMITTED FOR SEPTIC SHOCK.WITH LOW SATURATIONS.PATIENT HAS END STAGE RENAL DISEASE AND LAST HEMODIALYSIS WAS 08/19.ON LEVOPHED.ABXS :VANCO,ROCEPHIN AND FLAGYL. ID,NEPHRO,PULMO AND CARDIO ON BOARD. CM TO FOLLOW. Addendum: 08/25/22 at 1500 by BRAEDEN ROCKWELL CM DC PLANNING TRACH TO VENT.STILL ON LEVOPHED DRIP.WBC GOING UP (18.9).ON MICAFUNGIN, FLAGYL AND CEFTRIAXONE.08/21 SPUTUM CULTURE(+) FOR MDRO.ID ON BOARD.DIALYZED 08/24.NEPRO AND PULMO FOLLOWING.CM TO FOLLOW. Addendum: 08/30/22 at 1337 by BRAEDEN ROCKWELL CM DC PLANNING PATIENT IS TRACH TO VENT 24%FIO2, NON VERBAL.CXR 08/26 BILATERAL OPACITIES REPRESENTING PULM EDEMA AND OR ATYPICAL INFECTION.REPEAT CXR 08/28 NO INTERVAL CHANGE FROM 08/26.SPUTUM (+) FOR FUNGUS (SERRATIA M).STARTED ON MICAFUNGIN AND LEVOFLOXACIN. ON A LINE HOLIDAY .ID ON BOARD.LEVOPHED ON GOING AT [facility].NEPHRO FOLLOWING .PATIENT ON HEMODIALYSIS.GI FOR ASCITES AND NGT MANAGEMENT.PULMO FOR VENT MANAGEMENT.CM TO FOLLOW. Addendum: 08/31/22 at 1232 by BRAEDEN ROCKWELL CM DC PLANNING LTAC EVALUATION INITIATED 08/29.08/30 SAID SHE'S TOO SICK TO BE TRANSFERRED OUT.STILL ON LEVO FOR B/P SUPPORT.ON MICAFUNGIN,LEVOFLOXACIN AND VANCO.ID FOLLOWING.CREAT 2.0.DIALYZED YESTERDAY WITH 2L FLUID REMOVAL.NEPHRO ON BOARD.SURGERY AND CARDIO FOLLOWING.ELVER AT [place] UPDATED OF LTAC EVALUATION.CM TO FOLLOW. Addendum: 08/31/22 at 1350 by BRAEDEN ROCKWELL CM DC PLANNING TALKED TO DREA AT [facility] .WAS TOLD TO CALL RALPH FOR LTAC AUTHORIZATION.TRIED CALLING RALPH MEZA AT BUT UNABLE TO CONNECT TO A DRIVER'S LICENSE REVIEWING OFFICER.WILL TRY AGAIN IN AM. Addendum: 09/04/22 at 1335 by BRAEDEN ROCKWELL CM DC PLANNING 09/01/2022 TRIED TO REACH OUT TO RALPH MEZA AND LEFT A MESSAGE FOR A DRIVER'S LICENSE REVIEWING OFFICER TO GIVE PATIENT UPDATE AND PLAN FOR LTAC EVAL BUT NO RESPONSE . WILL TRY LATER.PATIENT WILL GO BACK TO [facility] ONCE OFF LEVO DRIP.LEVO AT 1.5MCG/MIN NOW.FOR HEMODIALYSIS TODAY.TPN IN PROGRESS.CM TO FOLLOW. Addendum: 09/08/22 at 0844 by BRAEDEN ROCKWELL CM DC PLANNING OFF VASOPRESSOR SINCE 09/06.OFF TPN.WITH NGT FEEDINGS .G-TUBE CLAMPED.NEW G-TUBE PLACED BY GI 09/07.ON MICAFUNGIN AND LEVOFLOXACIN.ID AND CARDIO ON BOARD.PATIENT TO GO BACK TO [facility] ONCE G-TUBE FEEDING IS STARTED AND TOLERATED.DISCUSSED DC PLAN WITH .CM TO FOLLOW. Addendum: 09/08/22 at 1335 by BRAEDEN ROCKWELL CM LATE ENTRY B/P AT 6AM 87/57 WITH MAP 65.STILL NEEDS CLOSE MONITORING PER ACCORDING TO CHARGE NURSE ,ANGELY. PATIENT ALSO NEEDS TUNNELED HD CATHETER BY IR.PATIENT ON HD 3X A WEEK. Addendum: 09/11/22 at 1616 by BRAEDEN ROCKWELL CM DC PLANNING PATIENT IS TRACH TO VENT DEPENDENT.PATIENT IS AWAKE AND TRACKS ON AND OFF.TUNNELED CATH INSERTION DONE.G-TUBE REINSERTED AND REINFLATED BY KATI FOWLER.WILL REASSESS IN AM. IF THERE'S NO LEAK G-TUBE FEEDING WILL BE STARTED.[facility] DREA FLAHERTY TO BE UPDATED OF PATIENT'S CONDITION.ID, NEPHRO,PULMO.GI AND CARDIO ON BOARD.PATIENT CAN BE DOWNGRADED TO TELEMETRY PER .CM TO FOLLOW. Addendum: 09/12/22 at 1602 by BRAEDEN ROCKWELL CM DC PLANNING CALLED [employer] AT AND WAS DIRECTED TO GINO PORRAS AT .CLINICALS FAXED TO [employer] . [facility] WAS ADVISED THAT PATIENT MIGHT GO BACK IN A DAY OR 2 ONCE G-TUBE FEEDING IS STARTED AND TOLERATED.WILL UPDATE VERN PERALTA AT [employer] AT .CM TO FOLLOW. Addendum: 09/12/22 at 1646 by BRAEDEN ROCKWELL CM LATE ENTRY TRIED TO REACH OUT TO VERN PERALTA AT [facility] TO GIVE AN UPDATE .LEFT A MESSAGE.WILL FOLLOW UP IN AM. Addendum: 09/13/22 at 1342 by BRAEDEN ROCKWELL CM JOSE MARIA PLANNING UNABLE TO CONTACT VERN PERALTA OF [facility] DESPITE SEVERAL MESSAGES.[facility] ACCEPTED PATIENT BACK.PATIENT IS HAVING HEMODIALYSIS AT THIS MOMENT.GT FEEDING TOLERATED WELL. NO LEAKAGE NOTED.NGT DISCONTINUED.ALS [facility] TRANSPORT ARRANGED BY RHYS MCALLISTER. LEFT A MESSAGE TO PATIENT'S SON REGARDING THE TRANSFER.ICU NOTIFIED OF 4PM PICKUP BY [facility]. Addendum: 09/13/22 at 1352 by RHYS ROBIN CM RECEIVED ORDER FOR PATIENT TO BACK TO [facility]. FAXED ALL PAPERWORK [facility]. SPOKE WITH JAMARI ROSAS IN THE MEDICARE AUTHORIZATION DEPARTMENT WHO SAID TO GIVE OLD CLOSE AUTH #[id number] TO [facility] TILL THE NEW ONE WAS MADE AND CALL BEFORE THE END OF THE DAY TO SEE PROGRESS ON NEW AUTH. SPOKE WITH RUSTAM AT [facility] [place] LOCATED AT [address] [id number]. [facility]. TRANSPORTATION WAS ARRANGE WITH [facility] FOR A 1600 PICK TIME. ICU NURSE NICOLETTE AWARE OF THE ABOVE INFORMATION. CALLED PATEL COX WHO DIDN'T ANSWER BUT WAS LEFT A MESSAGE REGARDING THE ABOVE INFORMATION. Addendum: 09/14/22 at 1128 by RHYS ROBIN CM ALL DIALYSIS PAPERWORK WAS REFAXED TO [facility] DUE TO FAX CONFIRMATION COMING BACK INCOMPLETE.
[2022-08-24] MEDS ORDERED: ALGINATE ROPE MC PRN (15:25)
[2022-08-24] MEDS: metroNIDAZOLE 500 MG/NS PREMIX 100 ML IV SCH ×2 (15:52→20:44)
[2022-08-24] MEDS: METOCLOPRAMIDE 10 MG/2 ML INJ VIAL IVP SCH (16:00)
--- NOTE | 2022-08-24 19:00 | NUR ---
TRANSFER OF CARE FROM DAY SHIFT, REPORT RECEIVED FROM KRYSTAL FUNG. PATIENT RECIEVED IN BED AWAKE, TRACH TO VENT WITH THE FOLLOWING SETTINGS: AC/VC, FIO2 = 24%, VT= 350, R = 16, PEEP = 5. PATIENT HAS NG TUBE TO LEFT NARE WITH SUCTION. PATIENT HAS PERMACATH LOCATED IN THE UPPER RIGHT CHEST WALL. PATIENT HAS LOWELL PICC LINE WITH THE FOLLOWING MEDICATIONS CURRENTLY INFUSING: LEVOPHED 8MG @ 4MCG/MIN AND D5 @75ML/HR. PER DAY SHIFT RN, PATIENT HAS ORDERS FOR TPN AND D5 WILL NEED TO BE STOPPED. PATIENT HAS THE FOLLOWING WOUNDS ON HER BODY: SACRUM = PRESSURE ULCER ABDOMEN = SURGICAL WOUND WITH MODERATE PURULENT DRAINAGE (GREEN) WHICH IS DRAINING INTO A COLOSTOMY BAG. BILATERAL POSTERIOR LEGS = SKIN TEARS. PATIENT HAS LEWIS CATHETER IN PLACE, CURRENTLY NO URINE OUTPUT. PATIENT HAS THE FOLLOWING VITALS AT START OF SHIFT: HR = 91, O2 SAT = 99%, BP = 136/62, R = 16, BP = 136/62, TEMP = 97.2F. WILL CONTINUE TO MONITOR PATIENT FOR ANY CHANGES IN CONDITION AND NOTIFY MD EXPEDITIOUSLY
--- NOTE | 2022-08-24 19:36 | NUR ---
0800: Received the patient from the off-going nurse. Received patient asleep, but responsive to tactile stimuli, trscks with her eyes, non verbal. Received the patient on the ventilator via tracheostomy ( see documentation for settings) Xu has (RT) U/A double lumen PICC line, site WNL and IVF infusing (see eMAR). Patient has (RT) chest wall Perma_cath in place, site WNL. Patient is scheduled for HD tratment today. Patient has NG tube in place, to suction and scant drainage observed. Patient is (+) anasarca. Patient observed with excoriated G-Tube site, tube previously remove. Patient observed with drainage bag to the site, with minimal green color drainage. Patient observed with sacral wound, Mepilex in place. 10:30: HD treatment stared. 13:30: Treatment completed 1L fluid removed, patient tolerated the treatment as prescribed, HD site WNL. Patient seen on round by the providers. Patient seen by the wound care nurse and dressing change completed. Patient left stable and bedside report given to the oncoming nurse/
[2022-08-24] MEDS ORDERED: MULTIVITAMIN-12 10 ML in DEXTROSE 50% 600 ML, AMINO ACIDS 8.5% 600 ML, FAT EMULSION 20%... IV SCH ×4 (20:00)
[2022-08-24] MEDS: NYSTATIN CRE 100 MU/GM 15 GM TUBE TP SCH (21:00)
--- NOTE | 2022-08-24 21:30 | NUR ---
PATIENT WITH ORDER FOR MYCOSTATIN. MEDICATION IS NOT AVAILABLE IN ICU, CHECKED IN ER AND MEDICATION IS NOT AVAILABLE WITHIN THE HOSPITAL. WILL ENDORSE TO DAY SHIFT TO FOLLOW UP WITH PHARMACY FOR REQUIRED MEDCATIONS
[2022-08-24] MEDS ORDERED: MICAFUNGIN SODIUM 100 MG in NACL 0.9% 100 ML IV SCH (22:25)
[2022-08-25] VITALS (34 sets, daily range): BP systolic 118–163; BP diastolic 63–116; PULSE 92–120; RESP 16–37; TEMP 97.6–97.8; O2SAT 91–100
[2022-08-25] MEDS ORDERED: NOREPINEPHRINE 4 MG/4 ML VIAL IV ONE (01:01)
[2022-08-25] MEDS: NOREPINEPHRINE 8 MG in DEXTROSE 5% 250 ML IV PRN (01:10)
[2022-08-25] MEDS: Z-GUARD PASTE TP SCH ×2 (01:11→14:12)
[2022-08-25] MEDS: METOCLOPRAMIDE 10 MG/2 ML INJ VIAL IVP SCH ×4 (01:26→23:00)
--- NOTE | 2022-08-25 01:44 | NUR ---
RECEIVED PHONE CALL FROM [facility] AND SPOKE WITH VENU GASTELUM. PROVIDED BRIEF PATIENT HISTORY PER REQUEST. PER VENU, THEY WILL NOT CONSIDER THIS A CORONONER'S AND WE ARE FREE TO REMOVE TUBING THAT MAY BE CONNECTED TO PATIENT. Addendum: 08/28/22 at 1950 by Luz Maria Lopez RN NOTIFIED ON 08/28/2022 @ 1947 THAT NURSE INCORRECTLY DOCUMENTED IN THE WRONG CHART
[2022-08-25] MEDS: INSULIN LISPRO SLIDING SCALE 100 UNITS/ML VIAL SUBQ PRN ×4 (02:01→18:44)
[2022-08-25] MEDS: metroNIDAZOLE 500 MG/NS PREMIX 100 ML IV SCH ×3 (04:06→21:14)
[2022-08-25 05:36] LABS: BASOPHILS # (AUTO) 0.1 K/uL (0.00-0.22); BASOPHILS % (AUTO) 0.3 % (0.0-2.0); EOSINOPHILS # (AUTO) 0.1 K/uL (0-0.4); EOSINOPHILS % (AUTO) 0.4 % (0.0-4.0); HEMATOCRIT 26.2 % (36-48); HEMOGLOBIN 8.4 g/dL (12.0-16.0); LYMPHOCYTES # (AUTO) 3.6 K/uL (2.5-16.5); LYMPHOCYTES % (AUTO) 18.9 % (20.5-51.1); MEAN CORPUSCULAR HEMOGLOBIN 32 pg (27-31); MEAN CORPUSCULAR HGB CONC 32 g/dL (33-37); MEAN CORPUSCULAR VOLUME 100.5 fL (80-94); MONOCYTES # (AUTO) 2.5 K/uL (0.8-1.0); NEUTROPHILS # (AUTO) 12.7 K/uL (1.8-7.7); NEUTROPHILS % (AUTO) 67.4 % (42.2-75.2); PLATELET COUNT (AUTO) 186 K/uL (140-450); RED BLOOD CELL COUNT(AUTO) 2.61 MIL/uL (4.20-5.40); RED CELL DISTRIBUTION WIDTH 19.5 % (11.6-13.7); WHITE BLOOD COUNT (AUTO) 18.9 K/uL (4.8-10.8)
[2022-08-25 05:48] LABS: ANION GAP 11.4 (8-16); CARBON DIOXIDE 29.2 mmol/L (21-32); CHLORIDE 92 mmol/L (98-107); CREATININE -0.6 mg/dL (0.6-1.3); GLUCOSE 299 mg/dL (74-106); POTASSIUM 3.6 mmol/L (3.5-5.1); SODIUM SERUM 129 mmol/L (136-145); UREA NITROGEN, BLOOD 25 mg/dL (7-18)
[2022-08-25 05:52] LABS: PHOSPHORUS 2.8 mg/dL (2.5-4.9)
[2022-08-25] MEDS: BLOOD GLUCOSE MONITORING 1 DEV DEV FS SCH ×4 (06:12→18:42)
[2022-08-25] MEDS: LEVOTHYROXINE 0.1 MG TAB PO SCH (06:23)
--- NOTE | 2022-08-25 07:12 | NUR ---
TRANSFER OF CARE TO DAY SHIFT, REPORT CARE OF PATIENT ENDORSED TO DORITA Acharya RN
--- NOTE | 2022-08-25 07:28 | NUR ---
Received the patient from the off-going nurse, responsive to tactile stimuli, follows with her eyes, non-verbal. Patient observed with anasarca, 4+ pitting edema. Patient observed on the vent via tracheostomy collar, (see documentation for settings) tracheostomy care performed by the RT. Patient has a (RT) nare NG-Tube in place secured to her cheek, skin intact and a hooked to intermittent suction, with minimal brown color secretions. Patient has (RT) U/A double lumen PICC line in place, site WNL, with TPN an Levophed continuous infusions (see eMAR for details). Patient has (RT) chest wall Perma-cath site WNL. Patient has excoriated LUQ area, S/P G-Tube removal, collection bag in place with scant green color drainage present. Patient has a Mckeon catheter in place, secured to her (RT) thigh, unlinked, below her bladder and off the floor; no urine output observed. Patient observed with sacral Pressure Ulcer, with Mepilex in place. Patient observed with bilateral heel booties, skin is dry and flaky. Patient is on a RODRIGO mattress, and on a Q2H T&R schedule. Patient is stable on the bed in the lowest position, wheels locked, call gaffney within reach and fall precaution in place.
[2022-08-25] MEDS: MIDODRINE 5 MG TAB GT SCH ×3 (08:57→17:00)
--- NOTE | 2022-08-25 09:02 | NUR ---
FNS CONSULT FOR PATIENT FOR WOUNDS/PRESSURE ULCER RECEIVED ON 08/25/22. PATIENT IS A HIGH RISK AND WAS SEEN ON 08/23/22 AND WILL BE FOLLOWED UP ON TODAY 08/25/[address] CURRENT CONSULT NOT APPLICABLE DUE TO PATIENT BEING ON TPN. ONCE PATIENT IS ON TUBE FEEDING AGAIN PROSOURCE CAN BE ADDED BID FOR WOUND CARE. FRANK MAGDALENO, RD
[2022-08-25] MEDS: MICAFUNGIN SODIUM 100 MG in NACL 0.9% 100 ML IV SCH (09:16)
[2022-08-25] MEDS: PANTOPRAZOLE 40 MG INJ VIAL IVP SCH (09:33)
--- NOTE | 2022-08-25 10:23 | NUR ---
DUE TO INCREASED PEAK PRESSURES/PLATEAU PRESSURES >[id number] PT MODE OF VENTILATION SWITCHED TO PRVC. BEDSIDE AND MADE AWARE OF CHANGE TO VENT. WILL CONTINUE TO MONITOR.
--- NOTE | 2022-08-25 10:46 | NUR ---
Patient remains the same with no decline in her status, no S/S of pain/discomfort. Patient received initial dose of Micafungin IV, no S/S of allergic reaction observed. Patient seen on am rounds by the Special Librarian, RT changed setting to AC PRVC mode, with similar settings. Patient is stable on the bed, in the lowest position, call gaffney within reach, fall precaution and Contact isolation in place.
[2022-08-25] MEDS ORDERED: VANCOMYCIN 1,000 MG in DEXTROSE 5% 250 ML IV SCH (11:00)
[2022-08-25] MEDS: NYSTATIN CRE 100 MU/GM 15 GM TUBE TP SCH ×2 (11:11→21:15)
[2022-08-25] MEDS: ALGINATE ROPE MC SCH (13:00)
[2022-08-25] MEDS: GAUZE TP SCH (13:00)
--- NOTE | 2022-08-25 13:32 | NUR ---
Patient remains the same with no decline in her status, no S/S of pain/discomfort. Call received from the labs with results. Patient has sputum culture (+) Klebsiella, MDRO, DIRECTOR ONLINE MARKETING. Dr. Cox contacted via text message, informed , responded @ 13:28; no new orders.
--- NOTE | 2022-08-25 14:23 | NUR ---
08/25/22 RD FOLLOW UP COMPLETED PLEASE REFER TO NUTRITION ASSESSMENT UNDER CARE ACTIVITY FOR ESTIMATED NUTRITIONAL NEEDS. 1. CONTINUE CURRENT TPN RATE PHARMACY HAS GIVEN. ONCE MEDICALLY APPROPRIATE PLEASE HAVE PATIENT RESUME TUBE FEEDING WITH NEPRO @40ML/HR AND FWF PER MD DUE TO RENAL. START WITH 20ML AND INCREASE BY 20ML Q4H TOLERATED. THIS WILL PROVIDE 1,728 CALORIES AND 78 GRAMS OF PROTEIN, MEETING PATIENTS ESTIMATED NUTRITIONAL NEEDS. 2. RD RECOMMENDS JEFF BID FOR WOUNDS ONCE MEDICALLY APPROPRIATE, THIS WILL PROVIDE 160 CALORIES AND 5 GRAMS OF PROTEIN. 3. RD WILL CONTINUE TO MONITOR ESTIMATED NUTRITIONAL NEEDS, GI ISSUES, WEIGHT AND NUTRITION RELATED LAB VALUES. 4. RD TO FOLLOW-UP 2-3 DAYS, HIGH RISK FRANK MAGDALENO RD
--- NOTE | 2022-08-25 19:38 | NUR ---
Patient remains the same with no decline in her status. Patient seen on round by the providers. Patient left stable on the bed, in the lowest position, wheels locked, call gaffney within reach, fall and contact precaution in place. Bedside report given to the oncoming nurse.
--- NOTE | 2022-08-25 19:39 | NUR ---
RECEIVED REPORT FROM DAY SHIFT RN FOR CONTINUITY OF CARE. PATIENT WITH EYES CLOSED, TRACH TO VENT, SETTING: AC/PRVC FIO2 24 VT 350 RATE 16 PEEP 5. PATIENT WITH RIGHT NARE NGT INTACT. LEWIS CATHETER IN PLACE. PICC LINE DOUBLE LUMEN TO RIGHT UPPER ARM RUNNING TPN AT 60 MLS/HR AND LEVOPHED 11 MCG/MIN. ALL SAFETY PRECAUTIONS ARE IN PLACE. BED WHEELS LOCKED IN LOW POSITION. CALL LIGHT WITHIN REACH. CONTACT ISOLATION OBSERVED. WILL CONTINUE TO MONITOR PATIENT.
--- NOTE | 2022-08-25 20:00 | NUR ---
PATIENT TURNED AND REPOSITIONED.
[2022-08-25] MEDS: DEXTROSE 50% IV SCH ×5 (20:26)
[2022-08-25] MEDS: MULTIVITAMIN IV SCH ×5 (20:26)
[2022-08-25] MEDS: INSULIN REGULAR IV SCH ×5 (20:26)
[2022-08-25] MEDS: [UNRECOGNIZED DRUG - OTHER] IV SCH ×5 (20:26)
[2022-08-25] MEDS: HUMAN IV SCH ×5 (20:26)
--- NOTE | 2022-08-25 21:15 | NUR ---
SCHEDULED MEDICATIONS DUE ADMINISTERED ORDERED.
[2022-08-26] VITALS (34 sets, daily range): BP systolic 61–162; BP diastolic 33–87; PULSE 83–109; RESP 16–36; TEMP 97.4–98.3; O2SAT 95–100
[2022-08-26] MEDS: Z-GUARD PASTE TP SCH ×2 (01:00→13:00)
[2022-08-26] MEDS: NOREPINEPHRINE 8 MG in DEXTROSE 5% 250 ML IV PRN (02:43)
[2022-08-26] MEDS: INSULIN LISPRO SLIDING SCALE 100 UNITS/ML VIAL SUBQ PRN ×4 (03:31→18:52)
--- NOTE | 2022-08-26 04:00 | NUR ---
BLOOD DRAWN FOR LAB.
--- NOTE | 2022-08-26 04:00 | NUR ---
PATIENT TURNED AND REPOSITIONED Q2H
[2022-08-26] MEDS: metroNIDAZOLE 500 MG/NS PREMIX 100 ML IV SCH ×2 (04:53→13:02)
[2022-08-26 05:28] LABS: HEMATOCRIT 26.5 % (36-48); HEMOGLOBIN 8.6 g/dL (12.0-16.0); MEAN CORPUSCULAR HEMOGLOBIN 32 pg (27-31); MEAN CORPUSCULAR HGB CONC 32 g/dL (33-37); MEAN CORPUSCULAR VOLUME 98.9 fL (80-94); PLATELET COUNT (AUTO) 194 K/uL (140-450); RED BLOOD CELL COUNT(AUTO) 2.68 MIL/uL (4.20-5.40); RED CELL DISTRIBUTION WIDTH 19.3 % (11.6-13.7); WHITE BLOOD COUNT (AUTO) 19.2 K/uL (4.8-10.8)
[2022-08-26 06:02] LABS: EOSINOPHILS % (MANUAL) 3 % (0-4); LYMPHOCYTES % (MANUAL) 17 % (20-46); MONOCYTES % (MANUAL) 8 % (5-12)
[2022-08-26 06:15] LABS: MAGNESIUM 1.9 mg/dL (1.8-2.4); PHOSPHORUS 3.2 mg/dL (2.5-4.9)
[2022-08-26] MEDS: LEVOTHYROXINE 0.1 MG TAB PO SCH (06:15)
[2022-08-26] MEDS: BLOOD GLUCOSE MONITORING 1 DEV DEV FS SCH ×4 (06:20→18:51)
[2022-08-26] MEDS: METOCLOPRAMIDE 10 MG/2 ML INJ VIAL IVP SCH ×3 (06:27→23:23)
[2022-08-26 06:29] LABS: ANION GAP 11.4 (8-16); CARBON DIOXIDE 27.3 mmol/L (21-32); CHLORIDE 93 mmol/L (98-107); GLUCOSE 208 mg/dL (74-106); POTASSIUM 3.7 mmol/L (3.5-5.1); SODIUM SERUM 128 mmol/L (136-145); UREA NITROGEN, BLOOD 36 mg/dL (7-18)
[2022-08-26 06:47] LABS: CREATININE 2.8 mg/dL (0.6-1.3)
--- NOTE | 2022-08-26 07:30 | NUR ---
ENDORSED PATIENT TO AM NURSE FOR CONTINUITY OF CARE.
--- NOTE | 2022-08-26 08:00 | NUR ---
Received the patient from the off-going nurse, responsive to tactile stimuli, follows with her eyes, non-verbal. Patient observed with anasarca, 4+ pitting edema. Patient observed on the vent via tracheostomy collar, (see documentation for settings) tracheostomy care performed by the RT. Patient has a (LT) nare NG-Tube in place secured to her nose, skin intact and a hooked to intermittent suction, with minimal brown color secretions. Patient has (RT) U/A double lumen PICC line in place, site WNL, with TPN and Levophed continuous infusions (see eMAR for details). Patient has (RT) chest wall Perma-cath site WNL, is scheduled for HD treatment today; time is unknown. Patient has excoriated LUQ area, with order for wound care in place. Patient is S/P G-Tube removal, collection bag in place with small amount of green color drainage observed. Patient has a Mckeon catheter in place, secured to her (RT) thigh, unlinked, below her bladder and off the floor; no urine output observed. Patient observed with sacral Pressure Ulcer, with Mepilex in place and bilateral posterior dressing in place ( see wound care assessment). Patient observed with bilateral heel booties, skin is dry and flaky. Patient is on a RODRIGO mattress, and on a Q2H T&R schedule. Patient is stable on the bed in the lowest position, wheels locked, call gaffney within reach and fall and contact precaution in place.
[2022-08-26] MEDS ORDERED: MEROPENEM 500 MG in NACL 0.9% 50 ML IV SCH (09:10)
--- NOTE | 2022-08-26 09:30 | NUR ---
Patient remains the same with no decline in her status, no S/S of pain/discomfort. Patient seen on am rounds by the Cover Machine Operator new verbal to D/C Rocephin and start Meropenem 1GM Q8H; order implemented. Patient continues on a RODRIGO mattress, with Q2H T&R schedule. Patient is stable on the bed in the lowest position, wheels locked, call gaffney within reach and fall and contact precaution remains in place.
[2022-08-26] MEDS: PANTOPRAZOLE 40 MG INJ VIAL IVP SCH (09:44)
[2022-08-26] MEDS: MICAFUNGIN SODIUM 100 MG in NACL 0.9% 100 ML IV SCH (09:44)
[2022-08-26] MEDS: NYSTATIN CRE 100 MU/GM 15 GM TUBE TP SCH ×2 (09:48→20:44)
[2022-08-26] MEDS: ALGINATE ROPE MC SCH (13:00)
[2022-08-26] MEDS: GAUZE TP SCH (13:00)
--- NOTE | 2022-08-26 13:50 | NUR ---
Called corporate controller, [facility] at [phone]. Pt. has orders for hemo dialysis for day. She states that [id number] pt.'s primary RN notified.
--- NOTE | 2022-08-26 19:15 | NUR ---
ASSUMED CARE OF PT.PT ON HEMODIALYSIS AT THIS TIME.ANASARCA NOTED.OPENS EYES TO TOUCH STIMULI.ST NOTED ON MONITOR.TRACH TO VENT AC PRVC FIO2 24% TV350 RAT 16 PEEP5.W/HD CATH TO RT CHEST.PICC LINE TO LOWELL INTACT INFUSING LEVOPHED 8MG IN 250ML D5W AT 8MCG/MIN AND TPN AT 60ML/HR.W/NGT TO LT NARES IN PLACE, PLACEMENT VERIFIED, TO LOW INTERMITTENT SUCTION.SMALL AMT OF YELLOWISH SECRETIONS NOTED, GTUBE SITE W/COLOSTOMY BAG, SCANTY AMT OF YELLOW OUTPUT NOTED.W/LEWIS CATHETER TO BSD, NO URINE OUTPUT NOTED.W/MULTIPLE WOUNDS, DRESSINGS IN PLACE,SEE WOUND ASSESSMENT.FLACC 0.FALL AND CONTACT PRECAUTION IN PLACE.BED IN LOW POSITION.CALL LIGHT WITHIN REACH.
--- NOTE | 2022-08-26 19:30 | NUR ---
Patient remains the same with no decline in her status, so S/S of pain/discomfort. HD in progress and being tolerated. TPN and Levophed continuos dose in progress Bedside report given to the on-coming nurse. Patient is stable on the bed in the lowest position, wheels locked, call gfafney within reach and fall and contact precaution in place.
--- NOTE | 2022-08-26 19:30 | NUR ---
PHONE CALL TO PTS NOK,PATEL FUENTES,UPDATED ON PTS PRESENT CONDITION, MADE AWARE THAT INFECTIOUS DS ORDERED FOR THE DIALYSIS CATHETER AND PICC LINE TO BE REMOVED AND CHANGED, CONSENT GIVEN BY PTS STANLEY FOR BOTH PROCEDURE WITNESSED BY MANINDER RICE CHARGE NURSE
--- NOTE | 2022-08-26 19:35 | NUR ---
Patient remains the same with no decline in her status, so S/S of pain/discomfort. HD started via (RT) chest wall perma-cath, site WNL. TPN and Levophed continuos dose in progress Bedside report given to the on-coming nurse. Patient is stable on the bed in the lowest position, wheels locked, call gaffney within reach and fall and contact precaution in place.
--- NOTE | 2022-08-26 19:40 | NUR ---
RANDI RICE PICC LINE NURSE WILL COME TONIGHT TO INSERT THE PICC LINE.DR RAKESH LEMA,LACING PRESSER ALSO MADE AWARE, AND HE SAID OK TO CHANGE/REINSERT PICC LINE
--- NOTE | 2022-08-26 19:54 | NUR ---
MESSAGED SENT TO DR LISANDRA MODI, SURGEON REGARDING HD CATHETER NEEDS TO BE PULLED OUT AND CHANGED PER DR VALERA, INFECTIOUS DS ,CONSENT OBTAINED FROM PTS NOK,SON KENNY FUENTES.DR MOID SAID HE WILL "PROBABLY DO THE PROCEDURE TOMORROW".
[2022-08-26] MEDS: DEXTROSE 50% IV SCH ×10 (20:00→20:19)
[2022-08-26] MEDS: [UNRECOGNIZED DRUG - OTHER] IV SCH ×5 (20:00)
[2022-08-26] MEDS: HUMAN IV SCH ×10 (20:00→20:19)
[2022-08-26] MEDS: MULTIVITAMIN IV SCH ×10 (20:00→20:19)
[2022-08-26] MEDS: INSULIN REGULAR IV SCH ×10 (20:00→20:19)
--- NOTE | 2022-08-26 20:00 | NUR ---
ORAL CARE USING VAP KIT RENDERED.PT ON PROTONIX DAILY FOR GI PROPHYLAXIS, NO DVT PROPHYLAXIS AT THIS TIME, WILL FOLLOW UP IN AM Addendum: 08/26/22 at 2228 by Sammi Wooten RN REPOSITIONED.FLACC 0
[2022-08-26] MEDS: [UNRECOGNIZED DRUG - OTHER] IV SCH ×5 (20:19)
[2022-08-26] MEDS: MEROPENEM 500 MG in NACL 0.9% 50 ML IV SCH (20:42)
[2022-08-26] MEDS: EPOETIN ALFA-EPBX 10,000 UNITS/ML VIAL SUBQ SCH (20:42)
--- NOTE | 2022-08-26 20:45 | NUR ---
HEMODIALYSIS COMPLETED.PT TOLERATED. 2 LITERS OUTPUT PER NDIAYE DIALYSIS NURSE.
--- NOTE | 2022-08-26 22:00 | NUR ---
PT REPOSITIONED.FLACC 0.STILL FIO2 24% ON VENT.TPN INFUSING.
--- NOTE | 2022-08-26 23:00 | NUR ---
AISHA PICC LINE INSERTED BY PICC LINE NURSE RANDI RICE.CXR ORDEREDE.PER RANDI RICE, OK TO USE PICC LINE
--- NOTE | 2022-08-26 23:30 | NUR ---
LOWELL PICC LINE DC'D, TIP SENT TO LAB ORDERED BY DR VALERA. PT ALSO HAS SPUTUM CULTURE ORDERED BY DR PALUMBO, SPECIMEN OBTAINED AND SENT TO LAB
[2022-08-27] VITALS (48 sets, daily range): BP systolic 97–158; BP diastolic 56–100; PULSE 85–125; RESP 13–36; TEMP 97.2–98.2; O2SAT 85–100
--- NOTE | 2022-08-27 | NUR ---
AFEBRILE TEMP 98.2/TEMPORAL THERMOMETER.ORAL CARE USING VAP KIT RENDERED.PT REPOSITIONED.FLACC 0 NO S/SX OR RESP DISTRESS NOTED
[2022-08-27] MEDS: BLOOD GLUCOSE MONITORING 1 DEV DEV FS SCH ×4 (00:08→18:13)
[2022-08-27] MEDS: Z-GUARD PASTE TP SCH ×2 (00:09→13:00)
--- NOTE | 2022-08-27 02:00 | NUR ---
PTS CONDITION REMAINS UNCHANGED.REPOSITIONED.FLACC 0
--- NOTE | 2022-08-27 04:00 | NUR ---
ORAL CARE DONE.REPOSITIONED.FLACC 0.SECRETIONS SUCTIONED,MODERATE AMT OF CREAMY SECRETIONS NOTED
[2022-08-27 05:23] LABS: BASOPHILS # (AUTO) 0.1 K/uL (0.00-0.22); BASOPHILS % (AUTO) 0.4 % (0.0-2.0); EOSINOPHILS # (AUTO) 0.5 K/uL (0-0.4); EOSINOPHILS % (AUTO) 3.3 % (0.0-4.0); HEMATOCRIT 27.9 % (36-48); HEMOGLOBIN 8.9 g/dL (12.0-16.0); LYMPHOCYTES # (AUTO) 2.3 K/uL (2.5-16.5); LYMPHOCYTES % (AUTO) 15.2 % (20.5-51.1); MEAN CORPUSCULAR HEMOGLOBIN 32 pg (27-31); MEAN CORPUSCULAR HGB CONC 32 g/dL (33-37); MONOCYTES # (AUTO) 1.9 K/uL (0.8-1.0); MONOCYTES % (AUTO) 12.5 % (1.7-9.3); NEUTROPHILS # (AUTO) 10.5 K/uL (1.8-7.7); NEUTROPHILS % (AUTO) 68.6 % (42.2-75.2); PLATELET COUNT (AUTO) 154 K/uL (140-450); RED BLOOD CELL COUNT(AUTO) 2.82 MIL/uL (4.20-5.40); RED CELL DISTRIBUTION WIDTH 19.5 % (11.6-13.7); WHITE BLOOD COUNT (AUTO) 15.3 K/uL (4.8-10.8)
[2022-08-27 05:55] LABS: ANION GAP 8.2 (8-16); CARBON DIOXIDE 30.4 mmol/L (21-32); CHLORIDE 99 mmol/L (98-107); CREATININE 2.1 mg/dL (0.6-1.3); GLUCOSE 153 mg/dL (74-106); POTASSIUM 3.6 mmol/L (3.5-5.1); SODIUM SERUM 134 mmol/L (136-145); UREA NITROGEN, BLOOD 24 mg/dL (7-18)
[2022-08-27 06:00] LABS: MAGNESIUM 1.8 mg/dL (1.8-2.4); PHOSPHORUS 2.8 mg/dL (2.5-4.9)
--- NOTE | 2022-08-27 06:00 | NUR ---
MORNING CARE DONE.PT REPOSITIONED.FLACC 0.STILL ON FIO2 24%/VENT.AISHA PICC LINE INTACT INFUSING LEVOPHED DRIP PER PROTOCOL AND TPN ORDERED
[2022-08-27] MEDS: METOCLOPRAMIDE 10 MG/2 ML INJ VIAL IVP SCH ×3 (06:05→22:39)
[2022-08-27] MEDS: LEVOTHYROXINE 0.1 MG TAB PO SCH (06:06)
--- NOTE | 2022-08-27 07:28 | NUR ---
DR. JOSE MARIA PAYNE ROUNDING; VORBO: RON MCKEON; ANTHONY FOWLER WITH CRITICAL VALUES
--- NOTE | 2022-08-27 07:33 | NUR ---
SEEN BY DR PAYNE,PULMO STERILE PROCESSING TECHNICIAN, UPDATED ON PTS PRESENT CONDITION, NEW ORDER RECEIVED.FOR ABG, NICOLETTE CHARGE NURSE WILL PUT THE ORDER
--- NOTE | 2022-08-27 07:48 | NUR ---
Received the patient from the off-going nurse, no S/S of pain/discomfort. Patient remains responsive to tactile stimuli, when awake is able to follows with her eyes, non-verbal. Patient S/P HD lat evening, no visible observed improvement with anasarca, remains +4 pitting edema, Patient observed on the vent via tracheostomy collar, (see documentation for settings) tracheostomy care performed by the RT. Patient has a (LT) nare NG-Tube in place secured to her nose, skin intact and a hooked to intermittent suction, with minimal brownish/reddish color secretions. Patient (RT) U/A double lumen PICC replaced on the previous shift, site WNL. Patient has (LT) U/A PICC, site WNL; TPN and Levophed continuous infusions (see eMAR for details). Patient has (RT) chest wall Perma-cath site WNL, central line dressing clean and intact. LUQ area excoriation improving, drainage bag changed by the previous shift, no drainage observed; BID order for wound care in place. Patient has a Mckeon catheter in place, secured to her (RT) thigh, unlinked, below her bladder and off the floor; no urine output observed. Patient observed with sacral Pressure Ulcer, with Mepilex in place and bilateral posterior dressing in place ( see wound care assessment). Patient observed with bilateral heel booties, skin is dry and flaky. Patient is on a RODRIGO mattress, and on a Q2H T&R schedule. Patient is stable on the bed in the lowest position, wheels locked, call gaffney within reach and fall and contact precaution in place.
[2022-08-27] MEDS: ALBUTEROL SULFATE/IPRATROPIU 3 ML SOL IH PRN (07:55)
--- NOTE | 2022-08-27 07:55 | NUR ---
RECEIVED ON A Blink for iPhone and AndroidSCAPE R860 VENTILATOR PLUGGED INTO RED OUTLET TOLERATING WELL WITHOUT COMPLICATIONS NOTED TO A JUNIE DCT #8 AIRWAY SECURED WITH A TONE TRACH TIE DRAIN SPONGE CHANGED CUFF PRESSURE CHECKED NOTED AMBU BAG AT BEDSIDE RESTING COMFORTABLY EQUAL CHEST RISE DEEP TRACHEAL SUCTION FOR LARGE THICK YELLOW SECRETIONS AIRWAY PATENT REVIEWED PREVIOUS NOTED PEAK PRESSURES CHANGED MODE TO AC TOLERATED BIOFUELS PRODUCTION TECHNICIAN TO MONITOR CHARLLINE/ICU AGRICULTURAL SPECIALIST NOTIFIED OF MODE CHANGE
--- NOTE | 2022-08-27 08:00 | NUR ---
Patient remains the same with no decline in her status, so S/S of pain/discomfort. Patient seen by the RT and ventilator mode to AC mode. TPN and Levophed continuos dose in progress. Patient is stable on the bed in the lowest position, wheels locked, call gaffney within reach and fall and contact precaution in place.
[2022-08-27] MEDS: NYSTATIN CRE 100 MU/GM 15 GM TUBE TP SCH ×2 (09:00→20:20)
--- NOTE | 2022-08-27 09:00 | NUR ---
Patient remains the same with no decline in her status, so S/S of pain/discomfort. Patient seen by Dr Watts on am rounds, plan to order two additional days of additional treat (today and tomorrow). TPN and Levophed continuos dose in progress. Patient is stable on the bed in the lowest position, wheels locked, call gaffney within reach and fall and contact precaution in place.
[2022-08-27] MEDS: MEROPENEM 500 MG in NACL 0.9% 50 ML IV SCH ×2 (09:57→20:14)
[2022-08-27] MEDS: MICAFUNGIN SODIUM 100 MG in NACL 0.9% 100 ML IV SCH (09:58)
[2022-08-27] MEDS: PANTOPRAZOLE 40 MG INJ VIAL IVP SCH (09:59)
--- NOTE | 2022-08-27 11:05 | NUR ---
STABLE GOOD CHEST RISE DEEP TRACHEAL SUCTION FOR MODERATE SEMI THICK YELLOW SECRETIONS AIRWAY PATENT CALL LIGHT WITHIN REACH Addendum: 08/27/22 at 1626 by Zana Smith RT ASCENDING PEAK PRESSURES [id number]; CHANGED MODE BACK TO PRVC; CHARILLINE/ICU FISHER CLAM NOTIFIED
--- NOTE | 2022-08-27 11:11 | NUR ---
08/27/22 RD FOLLOW UP COMPLETED.PLEASE REFER TO NUTRITION ASSESSMENT UNDER CARE ACTIVITY FOR ESTIMATED NUTRITIONAL NEEDS. 1. CONTINUE CURRENT TPN RATE PHARMACY HAS GIVEN. ONCE MEDICALLY APPROPRIATE PLEASE HAVE PATIENT RESUME TUBE FEEDING WITH NEPRO @40ML/HR AND FWF PER MD DUE TO RENAL. START WITH 20ML AND INCREASE BY 20ML Q4H TOLERATED RECOMMENDED BY RD 08/25/22. THIS WILL PROVIDE 1,728 CALORIES AND 78 GRAMS OF PROTEIN, MEETING PATIENTS ESTIMATED NUTRITIONAL NEEDS. 2. RD RECOMMENDS JEFF BID FOR WOUNDS ONCE MEDICALLY APPROPRIATE (PROVIDES 160 CALORIES, 5 GRAMS PROTEIN). 3. MONITOR ESTIMATED NUTRITIONAL NEEDS, GI ISSUES, WEIGHT AND NUTRITION RELATED LAB VALUES. 4.RD TO FOLLOW-UP IN 2-3 DAYS PATIENT IS HIGH RISK. RENITA KIM RD
--- NOTE | 2022-08-27 11:16 | NUR ---
Patient remains the same with no decline in her status, so S/S of pain/discomfort. Patient seen by the RT and ventilator mode changed back to AC PRVC, unable to tolerate AC mode. TPN and Levophed continuos dose in progress Bedside report given to the on-coming nurse. Patient is stable on the bed in the lowest position, wheels locked, call gaffney within reach and fall and contact precaution in place.
--- NOTE | 2022-08-27 11:38 | NUR ---
CALLED DR. JOSE MARIA PAYNE AT [facility] TO REVIEW ABG RESULTS; SHERLYN/EXCHANGE TO CABRERA JOHN MD; PATIENT REQUIRED INFORMATION AND CALL BACK NUMBER GIVEN [phone]
--- NOTE | 2022-08-27 12:07 | NUR ---
CALL BACK FROM DR. JOSE MARIA PAYNE; REVIEWED ABG RESULTS; REVIEWED CURRENT VENTILATOR SETTINGS; REVIEWED EXUDATION OF PULMONARY SECRETIONS (MODERATE-LARGE THICK); TORBO DR. PAYNE: [facility] THERAPY DUONEB Q6
[2022-08-27] MEDS: ALGINATE ROPE MC SCH (13:00)
[2022-08-27] MEDS: GAUZE TP SCH (13:00)
[2022-08-27] MEDS: ALBUTEROL SULFATE/IPRATROPIU 3 ML SOL IH SCH ×2 (13:07→19:11)
--- NOTE | 2022-08-27 13:07 | NUR ---
STABLE EQUAL CHEST RISE DEEP NO SOB NOTED TRACHEAL SUCTION FOR LARGE THIN PALE YELLOW SECRETIONS AIRWAY PATENT CALL LIGHT WITHIN REACH
[2022-08-27] MEDS: INSULIN LISPRO SLIDING SCALE 100 UNITS/ML VIAL SUBQ PRN (14:09)
--- NOTE | 2022-08-27 14:45 | NUR ---
Patient remains the same with no decline in her status, so S/S of pain/discomfort. HD treatment started at 1430 and being tolerated. TPN and Levophed continuos dose in progress. Patient is stable on the bed in the lowest position, wheels locked, call gaffney within reach and fall and contact precaution in place.
--- NOTE | 2022-08-27 15:55 | NUR ---
HEMODIALYSIS IN PROGRESS GOOD CHEST RUSE DEEP TRACHEAL SUCTION FOR MODERATE SEMI THICK PALE YELLOW SECRETIONS
--- NOTE | 2022-08-27 16:00 | NUR ---
Patient remains the same with no decline in her status, so S/S of pain/discomfort. HD in progress and being tolerated. TPN and Levophed continuos dose in progress. Patient seen by Dr Cox and stated that PICC inserted last night has be discontinue and replaced at the same time the Permacath is replaced. Patient is stable on the bed in the lowest position, wheels locked, call gaffney within reach and fall and contact precaution in place.
--- NOTE | 2022-08-27 16:10 | NUR ---
Patient remains the same with no decline in her status, so S/S of pain/discomfort. HD in progress and being tolerated. TPN and Levophed continuos dose in progress. Patient seen by Dr Nettles, global technical writer informed him of Dr Cox's instruction about removing and replacing both the PICC line and the Permacath at the same time. As per Dr Nettles "I do not do PICC lines" Field Application Engineer attempted to speak further with him and he left. Dr Cox texted and informed, awaiting reply. Patient is stable on the bed in the lowest position, wheels locked, call gaffney within reach and fall and contact precaution in place.
[2022-08-27] MEDS ORDERED: LIDOCAINE 1% 500 MG/ 50 ML VIAL INJ SCH (17:30)
--- NOTE | 2022-08-27 17:30 | NUR ---
Patient remains the same with no decline in her status, so S/S of pain/discomfort. Patient S/P HD treatment, tolerated the procedure; 1L fluid removed, blood pressure maintained with increased Levophed continuous infusion; TPN also in progress. Perma-cath site WNL, occlusive dressing in place. Patient is scheduled for additional HD treatment in the am, as per HD nurse: treatment will done early in the am. This early schedule will accommodate 10am scheduled Perma-cath removal and replacement. Patient is stable on the bed in the lowest position, wheels locked, call gaffney within reach and fall and contact precaution in place.
[2022-08-27] MEDS ORDERED: LIDOCAINE MPF 1% 5 ML ONE (17:37)
--- NOTE | 2022-08-27 17:48 | NUR ---
STABLE HEMODIALYSIS COMPLETED 1 LITER EXTRACTED GOOD CHEST RISE DEEP TRACHEAL SUCTION FOR MODECATE THIN YELLOW SECRETIONS AIRWAY PATENT
--- NOTE | 2022-08-27 19:30 | NUR ---
Patient remains the same with no decline in her status, so S/S of pain/discomfort. Bedside report given to the on-coming nurse. Patient is stable on the bed in the lowest position, wheels locked, call gaffney within reach and fall and contact precaution in place.
--- NOTE | 2022-08-27 19:31 | NUR ---
ASSUMED CARE OF PT.INITIAL ASSESSMENT COMPLETED. ST NOTED ON MONITOR.OPENS EYES TO TOUCH STIMULI.TRACH TO VENT AC PRVC FIO2 24% TV350 RATE 16 PEEP5.W/HD CATH TO RT CHEST.PICC LINE TO AISHA INTACT INFUSING LEVOPHED 8MG IN 250ML D5W AT 14 MCG/MIN AND TPN AT 60ML/HR.W/NGT TO LT NARES IN PLACE, PLACEMENT VERIFIED, TO LOW INTERMITTENT SUCTION.SMALL AMT OF YELLOWISH SECRETIONS NOTED, GTUBE SITE W/COLOSTOMY BAG, NO OUTPUT NOTED.W/LEWIS CATHETER TO BSD, NO URINE OUTPUT NOTED.W/MULTIPLE WOUNDS, DRESSINGS IN PLACE,SEE WOUND ASSESSMENT.FLACC 0.FALL AND CONTACT PRECAUTION IN PLACE.BED IN LOW POSITION.CALL LIGHT WITHIN REACH.
[2022-08-27] MEDS: HUMAN IV SCH ×5 (20:00)
[2022-08-27] MEDS: [UNRECOGNIZED DRUG - OTHER] IV SCH ×5 (20:00)
[2022-08-27] MEDS ORDERED: DEXTROSE 50% IV SCH ×5 (20:00)
[2022-08-27] MEDS: MULTIVITAMIN IV SCH ×5 (20:00)
[2022-08-27] MEDS: DEXTROSE 50% IV SCH ×5 (20:00)
[2022-08-27] MEDS ORDERED: [UNRECOGNIZED DRUG - OTHER] IV SCH ×5 (20:00)
[2022-08-27] MEDS ORDERED: INSULIN REGULAR IV SCH ×5 (20:00)
[2022-08-27] MEDS: INSULIN REGULAR IV SCH ×5 (20:00)
[2022-08-27] MEDS ORDERED: MULTIVITAMIN IV SCH ×5 (20:00)
[2022-08-27] MEDS ORDERED: HUMAN IV SCH ×5 (20:00)
--- NOTE | 2022-08-27 20:00 | NUR ---
ORAL CARE USING VAP KIT RENDERED.PT ON DAILY PROTONIX FOR GI PROPHYLAXIS, STILL NO DVT PROPHYLAXIS,ENDORSED TO AM NURSE, DID NOT ORDER.PT REPOSITIONED.FLACC 0
--- NOTE | 2022-08-27 22:00 | NUR ---
pts condition remains unchanged.fio2 on vent still at 24%.pt still on levophed drip tpn as ordered. flacc 0.repositioned.
[2022-08-28] VITALS (41 sets, daily range): BP systolic 78–163; BP diastolic 41–94; PULSE 91–104; RESP 12–35; TEMP 97.5–98.5; O2SAT 96–100
[2022-08-28] MEDS: BLOOD GLUCOSE MONITORING 1 DEV DEV FS SCH ×4 (00:16→18:37)
--- NOTE | 2022-08-28 00:18 | NUR ---
BS CHECKED 150, NO INSULIN REQUIRED.ORAL CARE DONE.PT REPOSITIONED.FLACC 0
[2022-08-28] MEDS: ALBUTEROL SULFATE/IPRATROPIU 3 ML SOL IH SCH ×4 (00:54→19:08)
[2022-08-28] MEDS: Z-GUARD PASTE TP SCH ×3 (01:26→21:00)
--- NOTE | 2022-08-28 02:00 | NUR ---
PT ASLEEP,AROUSABLE TO TOUCH STIMULI.TRACKS BUT NOT FOLLOWING COMMANDS.NO SOB NOTED ON FIO2 24%/VENT.STILL WITH LEVOPHED DRIP INFUSING.FLACC 0.REPOSITIONED
--- NOTE | 2022-08-28 04:00 | NUR ---
ORAL CARE USING VAP KIT DONE. AFEBRILE.FLACC 0.REPOSITIONED.FALL AND CONTACT PRECAUTION STILL IN PLACE
--- NOTE | 2022-08-28 04:53 | NUR ---
MORNING CARE DONE.NO BM NOTED.REPOSITIONED.FLACC 0
[2022-08-28 05:43] LABS: MAGNESIUM 1.9 mg/dL (1.8-2.4); PHOSPHORUS 2.9 mg/dL (2.5-4.9)
[2022-08-28] MEDS: INSULIN LISPRO SLIDING SCALE 100 UNITS/ML VIAL SUBQ PRN ×2 (06:01→12:51)
[2022-08-28] MEDS: LEVOTHYROXINE 0.1 MG TAB PO SCH (06:03)
[2022-08-28] MEDS: METOCLOPRAMIDE 10 MG/2 ML INJ VIAL IVP SCH ×2 (06:05→15:00)
--- NOTE | 2022-08-28 06:22 | NUR ---
PT AWAKE, STILL ON FIO2 24%/VENT.PICC LINE TO AISHA INTACT INFUSING LEVOPHED DRIP 8MG IN 250ML D5W AT 6 MCG/MIN.TPN AT 60LML/HR.DRESSING TO MULTIPLE WOUNDS DRY AND INTACT.COLOSTOMY BAG OVER GTUBE STOMA ALSO INTACT, NO OUTPUT NOTED.FLACC 0.REPOSITIONED
--- NOTE | 2022-08-28 07:19 | NUR ---
NO SIGNS OF PAIN AT THIS TIME, CALL LIGHT IN HAND
--- NOTE | 2022-08-28 07:19 | NUR ---
ASSUMMED CARE OF PT AT THIS TIME, ABLE TO TRACK STAFF WITH EYES, GENERALIZED ANASARCA , RIGHT NARES NGT TO LOW INTERMITTENT SUCTION WITH 20 CC OUTPUT,VSS, 133/74 HR RATE 94,RR 16 , O2 SAT 100%, SR, VENT SETTINGS, ACPRVC RATE 14, TV 350, FIO2 24% PEEP 5, RIGHT UPPER CHEST PERMA CATH,DIMINISHED LUNG SOUNDS, G TUBE SITE WITH COLOSTOMY BAG WITH SCANT PURLENT DRAINAGE, WILL REMOVE TODAY PER ORDER, F/C DRAINING YELLOW CLEAR URINE, BILATERAL ANKLES DRY SCAB WOUNDS, NON DRAINING, DRESSING CHANGED AT THIS TIME, SMALL OPEN WOUND TO COCCYX, CHANGED DRESSING AT THIS TIME, REPOSITIONED, PICC LINE LEFT UPPER LINE WITH LEVO AT 6MCG AND TPN @60CC, PER NIGHT NURSE PT WILL RECEIVE HD TODAY AND DR Kuo WILL REMOVE PERMACATH, IN ADDITION ,DR VALERA WANTS PICC LINE REMOVED. DR Kuo WILL PLACE A NEW DIALYSIS CATH ON SUNDAY.
[2022-08-28 07:22] LABS: ANION GAP 13.6 (8-16); CARBON DIOXIDE 25.2 mmol/L (21-32); CHLORIDE 102 mmol/L (98-107); CREATININE 1.9 mg/dL (0.6-1.3); GLUCOSE 199 mg/dL (74-106); POTASSIUM 3.8 mmol/L (3.5-5.1); SODIUM SERUM 137 mmol/L (136-145); UREA NITROGEN, BLOOD 21 mg/dL (7-18)
--- NOTE | 2022-08-28 07:37 | NUR ---
RECEIVED ON A Medical Envelope [employer] R860 VENTILATOR PLUGGED INTO RED OUTLET TOLERATING WELL WITHOUT COMPLICATIONS NOTED TO A PORTEX DCT #8 AIRWAY SECURED WITH A TONE TRACH TIE CUFF PRESSURE CHECKED NOTED AMBU BAG AT BEDSIDE LOC AWAKE RESPONSIVE TO SUCTION STIMULUS EQUAL CHEST RISE DEEP TRACHEAL SUCTION FOR MODERATE THIN YELLOW SECRETIONS AIRWAY PATENT CALL LIGHT CONTROL IN RIGHT HAND
--- NOTE | 2022-08-28 08:00 | NUR ---
ENDOTRACHEAL SUCTION FOR LARGE THIN YELLOW SECRETIONS AIRWAY PATENT Addendum: 08/28/22 at 1011 by Zana Smith RT DOCUMENTED WRONG PATIENT
--- NOTE | 2022-08-28 08:09 | NUR ---
ROUTINE ABG COMPLETED; NO ADVERSE REACTIONS NOTED Addendum: 08/28/22 at 1012 by Zana Smith RT DOCUMENTED WRONG PATIENT
--- NOTE | 2022-08-28 08:43 | NUR ---
DIALYSIS NURSE AT BEDSIDE AT THIS TIME
[2022-08-28] MEDS: NOREPINEPHRINE 8 MG in DEXTROSE 5% 250 ML IV PRN ×2 (09:19→09:26)
--- NOTE | 2022-08-28 09:32 | NUR ---
HEMODIALYSIS IN PROGRESS AWAKE STABLE GOOD CHEST RISE NO TRACHEAL SUCTION AT THIS TIME DIRECTOR INDUSTRIAL MUSEUM TO MONITOR
--- NOTE | 2022-08-28 09:50 | NUR ---
DR Kuo HERE INFORMED HD NURSE THAT HE WILL REMOVE HD CATH AFTER DIALYSIS, CHARGE NURSE INFORMED DR Kuo REGARDING REMOVAL OF PICC PER DR VALERA HOWEVER, PT IS ON LEVO NAD TPN, DR Shiela VALERA IS JUST A LABORATORY ANALYST.
[2022-08-28] MEDS: PANTOPRAZOLE 40 MG INJ VIAL IVP SCH (09:51)
[2022-08-28] MEDS: MEROPENEM 500 MG in NACL 0.9% 50 ML IV SCH ×2 (09:52→21:41)
[2022-08-28] MEDS: MICAFUNGIN SODIUM 100 MG in NACL 0.9% 100 ML IV SCH (09:54)
[2022-08-28] MEDS: NYSTATIN CRE 100 MU/GM 15 GM TUBE TP SCH ×2 (09:54→21:00)
--- NOTE | 2022-08-28 10:07 | NUR ---
PT RECEIVING HD AT THIS TIME, CALL LIGHT IN HAND, NO SIGNS OF PAIN NOTED AT THIS TIME
--- NOTE | 2022-08-28 11:22 | NUR ---
HD COMPLETED AT THIS TIME. 2 LITERS REMOVED
--- NOTE | 2022-08-28 11:30 | NUR ---
WOUND CARE NOTE: PT. NO TRACH AND PEG PROCEDURES INSTEAD PT. WITH CT SCAN DEMONSTRATED EVIDENCE OF PERFORATED VISCUS. EMERGENCY SURGICAL PROCEDURE DONE WITH DR. LEMA. DRAINAGE OF INTRA-ABDOMINAL ABSCESS SMALL BOWEL RESECTION WITH ILEOCECTOMY WITH PRIMARY ANASTAMOSIS AND DIVERTING LOOP ILEOSTOMY. STAFF REPORT CHANGE OF SKIN CONDITION. SKIN ASSESSMENT DONE WITH PRIMARY RN ERLIN WITH POC DISCUSSED WITH HIM AND CHARGE NURSE ANGELY. COMORBIDITIES RELATED TO DELAY WOUND HEALING, FURTHER SKIN BREAKS AND UN-AVOIDABLE PRESSURE INJURY: INFECTION, ACUTE HYPOXEMIC RESPIRATORY FAILURE,HYPOXEMIC DECREASE TISSUE PERFUSION,BRADYCARDIA VASOPRESSORS TO MAINTAIN MAP, DECREASE MOBILITY AND FUNCTIONAL ABILITIES, AND HOB ELEVATED THE MAJORITY OF TIMES DUE TO MEDICAL REASONS. [facility] WBC 14.1, RBC 2.95, H/H 9.3/27.8, ALBUMIN 0.8 AND BEATRIS. COUNT 100 INTERGUMENTARY: MULTIPLE NEW DIFFUSED ECCHYMOSIS/BRISING SKIN TO LEFT UPPER ARM/ELBOW AND RIGHT LATERAL TRUNK OF BODY ABOVE HIP AREA, SKIN INTACT, NO EDEMA -LEFT ABDOMINAL WALL SURGICAL WOUND WITH LELO IN PLACE 12CM IN LENGTH, AREA DRY. CLEAN NO S/S OF WOUND DEHISCENSE. -LLQ ABD ILEOSTOMY KWAKU STOMA SKIN CLEAN AND INTACT, STOMA MOIST, BEEFY RED, ROUND SHAPE 1 3/4 (44MM), PROTRUSION 1.5CM , LUMEN OPENING TO 6 OCLOCK -SCROTAL EDEMA +3 WITH THIN EASILY TORN SKIN -MOISTURE ASSOCIATED SKIN DAMAGE(MASD) TO: B/L GROINS, SCROTAL, SKIN MOIST -COCCYX DTI 1.5X0.5CM 100% MAROON COLOR, SKIN INTACT, KWAKU-WOUND SKIN WITH PREVIOUS PRESSURE INJURY SACRAL RESURFACING SCARING TISSUE. -RIGHT HALLUX MEDIAL ASPECT SKIN TEAR 1X0.3CM DRY SCAB RECOMMENDATIONS: -ILEOSTOMY CARE PER PROTOCAL -ABDOMINAL STAPLE WOUND, KEEP DRY AND CLEAN, APPLY DRY DRESSING QD AND PRN IF SOILING WITH OSTOMY LEAKAGE -APPLY HYDRAGUARD TO ALL LIMBS, TRUNK OF BODY, GROINS AND SCROTAL BID AND PRN IF SOILING -ELEVATE SCROTAL WITH ROLLED PILLOWCASE -SACRALCOCCYX APPLY HYDROGUARD AND COVER WITH FOAM DRESSING QD AND PRN IF SOILING. OFFLOADING SACRALCOCCYX AND BILATERAL HEELS -PRESSURE REDISTRIBUTION SURFACE THERAPY MAURICE ISOFLEX RODRIGO MATTRESS -POSITIONING: TURN AND REPOSITION PATIENT Q 2H OR SOONER USE PILLOWS TO KEEP BONY PROMINENCES FROM DIRECT CONTACT WITH SURFACES USE REPOSITIONING WEDGES TO PROVIDE 30-DEGREE ANGLE FOR SIDE LYING POSITIONS OFFLOADING OR FOAM DRESSING TO ALL TUBING TO PREVENT MEDICAL DEVICES RELATED PRESSURE INJURY -RE-EVALUATING AND MANAGING INCONTINENCE MONITOR SKIN CONDITION DURING POSITION CHANGE DO NOT MASSAGE REDNESS, BONY PROMINENCES, DO NOT USE DONUT-TYPE DEVICES FREQUENT KWAKU-CARE AND PROVIDE BARRIER CREAMS PRN IF SOILING MOISTURE CONTROL BY F/C, ABSORBENT PAD TO WICK AND HOLD MOISTURE. KEEP SKIN DRY AND PROTECT FROM FRICTION -MANAGE FRICTION/SHEAR/MOBILITY KEEP HOB AT THE LOWEST LEVEL OF ELEVATION NO MORE THAN 30 DEGREES UNLESS OTHERWISE CONTRAINDICATED USE LIFT SHEET OR TRANSFER DEVICE TO MOVE PATIENT AND PREVENT LATERAL SHEER. CONSIDER TRAPEZE IF APPROPRIATE PROTECT HEELS, ELBOWS BONY PROMINENCES WITH SKIN BERRIES OR FOAM DRESSING IF EXPOSED TO FRICTION OFFLOAD BILATERAL HEELS BY PLACING PILLOWS UNDER CALVES AT ALL TIMES, UNLESS OTHERWISE CONTRAINDICATED -NUTRITION: PLEASE FOLLOW RD RECOMMENDATIONS AND OFFER NUTRITION SUPPLEMENTS IF ORDERED. Addendum: 08/28/22 at 1401 by Diamond La RN (Grace) ABOVE NOTE DELETE. WRONG PT.
--- NOTE | 2022-08-28 11:38 | NUR ---
WOUND CARE NURSE AT BEDSIDE AT THIS TIME
--- NOTE | 2022-08-28 11:56 | NUR ---
DIETARY AT BEDSIDE AT THIS TIME
--- NOTE | 2022-08-28 12:08 | NUR ---
CALLED DR Kuo OFFICE REGARDING REMOVAL OF PERMACATH, CLOSED TILL 2PM, TEXTED DR Kuo ON CELL PHONE.
--- NOTE | 2022-08-28 12:59 | NUR ---
STABLE GOOD CHEST RISE DEEP TRACHEAL SUCTION FOR MODERATE THIN YELLOW SECRETIONS AIRWAY PATENT Addendum: 08/28/22 at 1425 by Zana Smith RT CALL LIGHT CONTROL IN RIGHT HAND
--- NOTE | 2022-08-28 13:08 | NUR ---
DR PEGUERO HERE STATEDHE WILL PUT IN AN ORDER TO STOP TUBE FEEDING FOR 3 DAYS Addendum: 08/28/22 at 1618 by Rachael Velasco RN RN DR BARR HERE STATED HE WILL PUT AN ORDER IN TO STOP TPN FOR 3 DAYS
--- NOTE | 2022-08-28 13:09 | NUR ---
DR HOLLEY HERE STATED TO LEAVE THE ABD WOUND OPEN TO AIR AND HAVE TO WOUND CARE NURSE TO PACK THE WOUND LIGHTLY.
[2022-08-28] MEDS: ALGINATE ROPE MC SCH (13:21)
[2022-08-28] MEDS: GAUZE TP SCH (13:21)
--- NOTE | 2022-08-28 13:26 | NUR ---
08/28/22 RD FOLLOW UP COMPLETED PLEASE REFER TO NUTRITION ASSESSMENT UNDER CARE ACTIVITY FOR ESTIMATED NUTRITIONAL NEEDS. 1. CONTINUE ON TPN PER PHARMACY. 2. RD WILL CONTINUE TO MONITOR TPN RATE, WEIGHTS, GI ISSUES, SKIN INTEGRITY AND NUTRITION RELATED LAB VALUES. 3. RD TO FOLLOW-UP 2-3 DAYS, HIGH RISK FRANK MAGDALENO RD
[2022-08-28] MEDS ORDERED: fentaNYL citrate 0.05 MG/ML VIAL ONE (13:44)
[2022-08-28] MEDS ORDERED: MIDAZOLAM MDV 50 MG/10 ML VIAL IV ONE (13:45)
--- NOTE | 2022-08-28 14:16 | NUR ---
call light in hand , no pain noted
--- NOTE | 2022-08-28 15:12 | NUR ---
STABLE GOOD CHEST RISE CALL LIGHT CONTROL IN RIGHT HAND
--- NOTE | 2022-08-28 16:11 | NUR ---
pt resting in bed, vss, call light in hands, no pain noted at this time, repositioned at this time
[2022-08-28] MEDS ORDERED: VANCOMYCIN 750 MG in NACL 0.9% 250 ML IV SCH (18:00)
--- NOTE | 2022-08-28 18:45 | NUR ---
DR Kuo AT BEDSIDE PLACING CATHETER
--- NOTE | 2022-08-28 19:17 | NUR ---
FAZAL HUDSON(RN) AWARE OF TPN WILL BE OFF FOR 3 DAYS
--- NOTE | 2022-08-28 19:22 | NUR ---
NIGHT NURSE AWARE DR Kuo PLACED HD CATH AND LEFT PICC REMOVAL, PT HAS A PIGTAIL FOR PRESSORS.
[2022-08-28] MEDS: DEXTROSE 50% IV SCH ×5 (20:00)
[2022-08-28] MEDS: INSULIN REGULAR IV SCH ×5 (20:00)
[2022-08-28] MEDS: HUMAN IV SCH ×5 (20:00)
[2022-08-28] MEDS: [UNRECOGNIZED DRUG - OTHER] IV SCH ×5 (20:00)
[2022-08-28] MEDS: MULTIVITAMIN IV SCH ×5 (20:00)
--- NOTE | 2022-08-28 23:38 | NUR ---
1929- BEDSIDE ENDORSEMENT GIVEN BY ALEXIS RICE DAY SHIFT
--- NOTE | 2022-08-28 23:40 | NUR ---
2000- BLEEDING MODERATELY ON THE LEFT UPPER ARM MODERATELY, APPLIED ROLLED GAUZE TO THE SITE OF BLEEDING AND STOPPED AFTER 15 MINS
--- NOTE | 2022-08-28 23:42 | NUR ---
2114- COMPLETE BED BATH DONE. REPOSITIONED
--- NOTE | 2022-08-28 23:43 | NUR ---
2200- ORAL CARE DONE, UP HOB 45 %.SIDERAILS UP TIMES 3
--- NOTE | 2022-08-28 23:44 | NUR ---
[address], NO RESP DISTRESS
[2022-08-29] VITALS (42 sets, daily range): BP systolic 89–158; BP diastolic 50–88; PULSE 80–104; RESP 1–29; TEMP 96.3–98; O2SAT 94–100
[2022-08-29] MEDS: ALBUTEROL SULFATE/IPRATROPIU 3 ML SOL IH SCH ×2 (00:33→19:08)
[2022-08-29] MEDS: BLOOD GLUCOSE MONITORING 1 DEV DEV FS SCH ×4 (00:35→17:22)
[2022-08-29] MEDS: METOCLOPRAMIDE 10 MG/2 ML INJ VIAL IVP SCH ×4 (00:39→23:14)
--- NOTE | 2022-08-29 01:34 | NUR ---
TEXT DR BRIONES, AGAIN FOR FOLLOW UP WITH MAGNESIUM REPLACEMENT. WAITING FOR RESPONSE.
--- NOTE | 2022-08-29 01:54 | NUR ---
0000- SUCTIONED PER ORALLY AND TRACHEALLY
--- NOTE | 2022-08-29 02:04 | NUR ---
2100- MYCOSTATIN CREAM WAS APPLIED AND SCANNED TWICE BUT WAS NOT SAVED WHEN SAVED AND ALSO THE HYR CHERYGUARD
--- NOTE | 2022-08-29 04:56 | NUR ---
2300- REPOSTIONED, ORAL CARE DONE
--- NOTE | 2022-08-29 04:56 | NUR ---
0100- BP GOES DOWN TO SYSTOLIC-65 TO SYSTOLIC 150
--- NOTE | 2022-08-29 04:57 | NUR ---
0300- ORAL CARE DONE. SUCTIONED ORALLY TO A HUGE TENACIOUS PALE THICK YELLOW SECRETIONS
--- NOTE | 2022-08-29 04:59 | NUR ---
0500- PARTIAL BED BATH DONE
[2022-08-29 05:33] LABS: BASOPHILS # (AUTO) 0.1 K/uL (0.00-0.22); BASOPHILS % (AUTO) 0.5 % (0.0-2.0); EOSINOPHILS # (AUTO) 0.6 K/uL (0-0.4); EOSINOPHILS % (AUTO) 4.5 % (0.0-4.0); HEMATOCRIT 24.4 % (36-48); HEMOGLOBIN 7.8 g/dL (12.0-16.0); LYMPHOCYTES # (AUTO) 2.7 K/uL (2.5-16.5); LYMPHOCYTES % (AUTO) 21.2 % (20.5-51.1); MEAN CORPUSCULAR HEMOGLOBIN 32 pg (27-31); MEAN CORPUSCULAR HGB CONC 32 g/dL (33-37); MEAN CORPUSCULAR VOLUME 101.1 fL (80-94); MONOCYTES # (AUTO) 1.5 K/uL (0.8-1.0); MONOCYTES % (AUTO) 11.4 % (1.7-9.3); NEUTROPHILS # (AUTO) 8.1 K/uL (1.8-7.7); NEUTROPHILS % (AUTO) 62.4 % (42.2-75.2); PLATELET COUNT (AUTO) 134 K/uL (140-450); RED BLOOD CELL COUNT(AUTO) 2.41 MIL/uL (4.20-5.40); RED CELL DISTRIBUTION WIDTH 20.6 % (11.6-13.7)
[2022-08-29 05:59] LABS: ANION GAP 11.5 (8-16); CARBON DIOXIDE 25.3 mmol/L (21-32); CHLORIDE 99 mmol/L (98-107); CREATININE 1.7 mg/dL (0.6-1.3); GLUCOSE 255 mg/dL (74-106); POTASSIUM 3.8 mmol/L (3.5-5.1); SODIUM SERUM 132 mmol/L (136-145); UREA NITROGEN, BLOOD 16 mg/dL (7-18)
[2022-08-29 06:06] LABS: MAGNESIUM 1.7 mg/dL (1.8-2.4); PHOSPHORUS 2.8 mg/dL (2.5-4.9)
[2022-08-29] MEDS: LEVOTHYROXINE 0.1 MG TAB PO SCH (06:30)
--- NOTE | 2022-08-29 07:03 | NUR ---
0600- SUCTIONED ORALLY AND ORAL CARE DONE
[2022-08-29] MEDS: NOREPINEPHRINE 8 MG in DEXTROSE 5% 250 ML IV PRN (07:25)
--- NOTE | 2022-08-29 07:40 | NUR ---
ASSUME CARE OF PT AT THIS TIME, VSS 132/70, 96%,HR 88, RR 16, NO PAIN NOTICED AT THIS TIME, EYES OPEN, PERRLA, NG TUBE TO LEFT NARE TO LOW INTERMITTENT SUCTION,VENTSETTINGS, ACPRVC 24%, TV 350, RR 16, PEEP 5, DIMINISHED LUNG SOUNDS, HD ACCESS TO LEFT NECK DRY INTACT WITH LEVO @ 2MCG/KG/MIN, DRESSING TO LEFT UPPER ARM DRY INTACT, ABD SITE OPEN TO AIR, DRESSING TO BUTTOCK DRY INTACT, DRESSING TO BILATERAL LOWER ANKLES DRY INTACT, REPOSITIONED FOR COMFORT, CALL LIGHT IN HAND.
[2022-08-29] MEDS: EPOETIN ALFA-EPBX 10,000 UNITS/ML VIAL SUBQ SCH (09:19)
[2022-08-29] MEDS: PANTOPRAZOLE 40 MG INJ VIAL IVP SCH (09:20)
[2022-08-29] MEDS: MEROPENEM 500 MG in NACL 0.9% 50 ML IV SCH (09:20)
[2022-08-29] MEDS: MICAFUNGIN SODIUM 100 MG in NACL 0.9% 100 ML IV SCH (09:21)
[2022-08-29] MEDS: NYSTATIN CRE 100 MU/GM 15 GM TUBE TP SCH ×2 (09:21→21:00)
--- NOTE | 2022-08-29 09:50 | NUR ---
call light in hand, no pain noted at this time, repositioned for comfort
--- NOTE | 2022-08-29 12:24 | NUR ---
NO FACIAL GRIMACING, REPOSITIONED, CALL LIGHT IN HAND
[2022-08-29] MEDS: ALGINATE ROPE MC SCH (13:52)
[2022-08-29] MEDS: Z-GUARD PASTE TP SCH (13:53)
[2022-08-29] MEDS: GAUZE TP SCH (13:53)
[2022-08-29] MEDS ORDERED: LABETALOL 20 MG/4 ML VIAL IVP ONE (14:43)
--- NOTE | 2022-08-29 16:48 | NUR ---
per lab stated not a critical but culture sputum is Serratia Marcescens and Carbapanem Resistant FROM [facility], pt is already on ATB
--- NOTE | 2022-08-29 18:28 | NUR ---
DR AVLERA HER AWARE OF SPUTUM CULTURE RESULTS
--- NOTE | 2022-08-29 19:15 | NUR ---
gely received from Vic Jc for continue of care.pt in bed ventilated, no distress noted.
--- NOTE | 2022-08-29 19:17 | NUR ---
gely hernandez(tania)
[2022-08-29] MEDS ORDERED: COLISTIMETHATE SODIUM 150 MG in NACL 0.9% 100 ML IV SCH (19:30)
[2022-08-29] MEDS: LEVOFLOXACIN 500 MG/D5W PREMIX 100 ML IV SCH (19:58)
[2022-08-29] MEDS: MULTIVITAMIN IV SCH ×5 (20:00)
[2022-08-29] MEDS: [UNRECOGNIZED DRUG - OTHER] IV SCH ×5 (20:00)
[2022-08-29] MEDS: DEXTROSE 50% IV SCH ×5 (20:00)
[2022-08-29] MEDS: HUMAN IV SCH ×5 (20:00)
[2022-08-29] MEDS: INSULIN REGULAR IV SCH ×5 (20:00)
--- NOTE | 2022-08-29 20:59 | NUR ---
MESSAGE DR BRIONES TO REQUEST REPLACEMENT OF MAGNESIUM OF 1.7.WAITING FOR RESPONSE.
[2022-08-30] VITALS (32 sets, daily range): BP systolic 91–146; BP diastolic 47–99; PULSE 86–103; RESP 11–30; TEMP 96.2–98.1; O2SAT 94–100
[2022-08-30] MEDS: BLOOD GLUCOSE MONITORING 1 DEV DEV FS SCH ×4 (00:12→17:53)
[2022-08-30] MEDS: Z-GUARD PASTE TP SCH ×2 (00:45→12:53)
[2022-08-30] MEDS: ALBUTEROL SULFATE/IPRATROPIU 3 ML SOL IH SCH ×4 (01:28→19:55)
--- NOTE | 2022-08-30 05:02 | NUR ---
pt was bathed and clean no bm noted.linen and pads replaced. mouth care performed for pt. abdominal dressing was changed and applied nystatin cream. pt tolerated well no distress noted.
[2022-08-30 05:20] LABS: BASOPHILS % (AUTO) 0.4 % (0.0-2.0); EOSINOPHILS # (AUTO) 0.5 K/uL (0-0.4); HEMATOCRIT 24.5 % (36-48); HEMOGLOBIN 7.7 g/dL (12.0-16.0); LYMPHOCYTES # (AUTO) 2.2 K/uL (2.5-16.5); LYMPHOCYTES % (AUTO) 21.9 % (20.5-51.1); MEAN CORPUSCULAR HEMOGLOBIN 32 pg (27-31); MEAN CORPUSCULAR HGB CONC 32 g/dL (33-37); MEAN CORPUSCULAR VOLUME 102.6 fL (80-94); MONOCYTES % (AUTO) 9.5 % (1.7-9.3); NEUTROPHILS # (AUTO) 6.4 K/uL (1.8-7.7); NEUTROPHILS % (AUTO) 63.2 % (42.2-75.2); PLATELET COUNT (AUTO) 167 K/uL (140-450); RED BLOOD CELL COUNT(AUTO) 2.39 MIL/uL (4.20-5.40); RED CELL DISTRIBUTION WIDTH 20.4 % (11.6-13.7); WHITE BLOOD COUNT (AUTO) 10.2 K/uL (4.8-10.8)
[2022-08-30 05:50] LABS: ANION GAP 11.7 (8-16); CARBON DIOXIDE 26.6 mmol/L (21-32); CHLORIDE 102 mmol/L (98-107); CREATININE 2.2 mg/dL (0.6-1.3); GLUCOSE 106 mg/dL (74-106); POTASSIUM 4.3 mmol/L (3.5-5.1); SODIUM SERUM 136 mmol/L (136-145); UREA NITROGEN, BLOOD 21 mg/dL (7-18)
[2022-08-30 05:57] LABS: MAGNESIUM 1.9 mg/dL (1.8-2.4); PHOSPHORUS 3.8 mg/dL (2.5-4.9)
[2022-08-30] MEDS: LEVOTHYROXINE 0.1 MG TAB PO SCH (05:57)
--- NOTE | 2022-08-30 07:12 | NUR ---
RECEIVED ON A [employer] R860 VENTILATOR PLUGGED INTO RED OUTLET TOLERATING WELL WITHOUT COMPLICATIONS NOTED TO A PORTEX DCT #8 AIRWAY SECURED WITH A TONE TRACH TIE CUFF PRESSURE CHECKED NOTED AMBU BAG AT BEDSIDE CALL LIGHT CONTROL WITHIN REACH STABLE RESTING COMFORTABLY NO DISTRESS NOTED EQUAL CHEST RISE DEEP TRACHEAL SUCTION FOR MODERATE THIN PALE YELLOW SECRETIONS AIRWAY PATENT
--- NOTE | 2022-08-30 07:19 | NUR ---
SBAR GIVEN TO OLVIN/KINDRA RN FOR CONTINUE OF CARE.
--- NOTE | 2022-08-30 07:30 | NUR ---
RECEIVED REPOSRT FROM MECHELLE RICETELEMEDICINE PHYSICIANPAPERHANGER CONTRACTOR PT ADMIT FOR HYPOXIA PT OPEN EYES ABLE TO TRACK NURSE PT UNABLE TO MOVE EXT PT IS GENERALIZED EDEMA PT ON TRACHE TO VENT AC/PRVC FIO2 24% TV 350 RR 16 PEEP 5 VS 90HR O2SAT 99% RR 20 BP 101/54 PT HAS LEFT MARRUFO NGT CONNECTED TO LIS OFF FEEDING AND TPN PT HAS LEWIS CATH INTACT SMALL AMOUT OF YELLOW URINE PT HAS LEFT DANIAL CATH 2 LUMEN OF HD CATH AND A PIGTAIL PT HAS LEVOPHED DRIP AT 2 MCG PT HAS PT HAS MULITPLE SKIN PROBLEM MIDABDOMEN OLD GT SITE, SCARAL, BACK AND BILA CALF WOUND. PER REPOSRT PT HAVE ORDER FOR HD TODAY AND OFF TPN FOR 3 DAYS 3RD DAY TODAY. PT CALL LIGHT SABI MALDONADO PT BED IS LOCKED AND LOW POSITION CONTINUE TO MONITOR.
[2022-08-30] MEDS: METOCLOPRAMIDE 10 MG/2 ML INJ VIAL IVP SCH ×3 (08:41→23:31)
[2022-08-30] MEDS: PANTOPRAZOLE 40 MG INJ VIAL IVP SCH (08:41)
[2022-08-30] MEDS: MICAFUNGIN SODIUM 100 MG in NACL 0.9% 100 ML IV SCH (08:41)
[2022-08-30] MEDS: NYSTATIN CRE 100 MU/GM 15 GM TUBE TP SCH ×2 (08:55→21:00)
[2022-08-30] MEDS ORDERED: COLISTIMETHATE SODIUM 35 MG in NACL 0.9% 100 ML IV SCH (09:00)
--- NOTE | 2022-08-30 09:00 | NUR ---
WOUND CARE RAE RN CAME IN AND ASSESS PT ASSISTED BY NURSE, REPOSITION PATIENT
--- NOTE | 2022-08-30 09:36 | NUR ---
STABLE NO APPARENT DISTRESS NOTED EQUAL CHEST RISE AIRWAY PATENT
--- NOTE | 2022-08-30 09:53 | NUR ---
HD NURSE STARTED HD TODAY AT BEDSIDE
--- NOTE | 2022-08-30 11:06 | NUR ---
WOUND CARE RE-EVALUATION NOTE: SKIN ASSESSMENT DONE WITH PRIMARY RN KINDRA. PT. REPOSITION TO LEFT SIDE LYING, ALL TUNING POSITION TO TOP. TRUNK OF BODY AND ALL LIMBS EDEMA+3 SKIN THIN AND TIGHT. BARRIER CREAM APPLY. GT SITE NO ACID /BILE FLUIDS OUTPUT OBSERVED, SMALL AMOUNT OF SEROUS DRAINAGE. OSTOMY BAG REMOVED, DRESSING IN PLACE. WILL ADD THERAHONEY GEL TO KWAKU-STOMA SLOUGHING TISSUE. POC DISCUSSED WITH PRIMARY RN. -LIPS AND ORAL MUCOSA DRY AND CLEAN. SKIN INTACT. -IBCBS-MRKM-[id number] SKIN, DRY INTACT -UPPER ARMS MULTIPLE ECCHYMOSIS, NO NEW ECCHYMOSIS NOTICE -MOISTURE ASSOCIATED SKIN DAMAGE(MASD) TO: B/L GROINS, MEDIAL THIGHS AND BUTTOCKS, SKIN RED AND MOIST -PRESSURE INJURY UN-STAGEABLE, SACROCOCCYX 1X1CM, WOUND BED 100% YELLOW/OFF WHITE SLOUGH TISSUE, MOIST, NO ODOR, WOUND EDGE FLAT, KWAKU-WOUND SKIN MOIST SURROUNDING MASD INDICATED FURTHER DAMAGE -PRESSURE INJURY UN-STAGEABLE, THORACIC SPINE 1X1CM, WOUND BED 100% YELLOW SLOUGH TISSUE, MOIST, NO ODOR, WOUND EDGE FLAT, KWAKU-WOUND SKIN MOIST SURROUNDING REDNESS INDICATED FURTHER DAMAGE - PVD LEFT CALF, 3.5X1.5CM WOUND BED IS 100% BROWN TISSUE, DRY, NO ODOR, KWAKU WOUND DRY, PEELING SKIN. - PVD RIGHT CALF, 1X0.5CM WOUND BED IS 100% BROWN TISSUE, DRY, NO ODOR, KWAKU WOUND DRY, PEELING SKIN. RIGHT DORSAL FOOT +3 EDEMA -ABDOMINAL SEVER MASD SKIN RASHES IMPROVING WITH NYSTATIN CR, ENTIRE AREA [id number]. WITH GT SITE KWAKU WOUND SKIN 50% BROWN/YELLOW SLOUGH TISSUE 50% MASD PINK TISSUE. NO ODOR, WEEPING SMALL AMOUNT SEROUS DRAINAGE.
[2022-08-30] MEDS ORDERED: THERAHONEY GEL 42.5 GM TP PRN (11:40)
[2022-08-30] MEDS: ALGINATE ROPE MC SCH (12:54)
[2022-08-30] MEDS: GAUZE TP SCH (12:54)
[2022-08-30] MEDS: THERAHONEY GEL 42.5 GM TP SCH (12:54)
--- NOTE | 2022-08-30 12:57 | NUR ---
DR. PEGUERO CAME IN AND ASSESS PT DID CHART REVIEW NO NEW ORDER GIVEN TO NURSING AT THIS TIME. Addendum: 08/30/22 at 1900 by KINDRA DANIELS RN ADDITIONAL DR. PEGUERO MADE AWARE REGARDING PT ABDOMEN FIRM AND DISTENDED. PER DR. ANTHONY PARIKH MD. UPON REVIEWING NOTES OF DR. KATIE PARIKH PT HAD CT OF ABDOMEN AND PELVIS DONE AT 08/23/22 RESULT SHOWS LARGE VOLUME ABDOMEINAL PELVIS ASCITES. DR. MARCELINO IS AWARE ON 08/24/22 WITH HIS NOTES AWARE OF THE CT A/P RESULT
--- NOTE | 2022-08-30 12:58 | NUR ---
HD PT IS DONE PER NURSE 2 L OUT REMOVAL AND STEVE BARROW CATH DRESSIGN CHANGE DONE.
--- NOTE | 2022-08-30 13:10 | NUR ---
POST HEMODIALYSIS STABLE GOOD CHEST RISE AIRWAY PATENT
--- NOTE | 2022-08-30 14:00 | NUR ---
08/30/22 RD FOLLOW UP COMPLETED PLEASE REFER TO NUTRITION ASSESSMENT UNDER CARE ACTIVITY FOR ESTIMATED NUTRITIONAL NEEDS. 1. CONTINUE NPO DIET TOLERATED 2. ONCE MEDICALLY APPROPRIATE FOLLOW TPN RECOMMENDATIONS PER PHARMACY. 3. RD WILL CONTINUE TO MONITOR WEIGHTS, NUTRITIONAL NEEDS, GI ISSUES AND SKIN INTEGRITY. 4. RD TO FOLLOW-UP 2-3 DAYS, HIGH RISK FRANK MAGDALENO RD
--- NOTE | 2022-08-30 14:17 | NUR ---
DR. MORLEY CAME IN AND ASSESS PT DID CHART REVIEW NO NEW ORDER GIVEN
--- NOTE | 2022-08-30 14:30 | NUR ---
DR. VASQUEZ CAME IN AND ASSESS PT CHART REVIEW DONE. NO NEW ORDER GIVEN.
--- NOTE | 2022-08-30 16:42 | NUR ---
STABLE RESTING WELL GOOD CHEST RISE DEEP TRACHEAL SUCTION FOR MODERATE THICK PALE YELLOW SECRETIONS AIRWAY PATENT
[2022-08-30] MEDS ORDERED: VANCOMYCIN 750 MG in NACL 0.9% 250 ML IV SCH (18:00)
--- NOTE | 2022-08-30 19:28 | NUR ---
ENDORSED PT TO KENNETH/[facility] RICE NIGHT FOR CONTINUITY OF CARE, ALL QUESTIONS ANSWERED.
--- NOTE | 2022-08-30 19:30 | NUR ---
RECEIVED REPORT FROM DAYSMOFT NURSE KINDRA RN. PT WAS ADMIITED DUE TO LOW 02 SATURATION. PT IS AWAKE, OPENS EYES AND TRACKING BUT NOT FOLLOWING COMMANDS. ON SEMI-GARDNER'S POSITION. NOT IN DISTRESS. TRACH TO VENT SETTINGS: A/C PRVC FIO2 24%, TV 350, RATE 16, PEEP 5. WITH NGT TO LT NARES CONNECTED TO LIS. WITH LT IJ CATH (DANIAL WITH PIG TAIL). PIGTAIL CONNECTED TO Y TUBE WITH LEVOPHED 4MCG/MIN AND NS 165 ML/HR. WITH LEWIS CATH INTACT AND HAS MINIMAL AMOUNT OF URINE APPROX 15 ML. PT HAS MULTIPLE SKIN PROBLEM MID-ABDOMEN OLD GT SITE, SACRAL, BACK AND BILATERAL CALF WOUND. PER REPORT PT IS OFF FOR TPN FOR 3 DAYS 3RD DAY TODAY. PT CALL LIGHT SABI MALDONADO PT BED IS LOCKED AND LOW POSITION WILL CONTINUE TO MONITOR.
[2022-08-30] MEDS: INSULIN REGULAR IV SCH ×5 (20:00)
[2022-08-30] MEDS: [UNRECOGNIZED DRUG - OTHER] IV SCH ×5 (20:00)
[2022-08-30] MEDS: DEXTROSE 50% IV SCH ×5 (20:00)
[2022-08-30] MEDS: MULTIVITAMIN IV SCH ×5 (20:00)
[2022-08-30] MEDS: HUMAN IV SCH ×5 (20:00)
--- NOTE | 2022-08-30 20:05 | NUR ---
SON CAME TO VISIT. PT IS AFEBRILE T OF 98.2. PT NOT IN DISTRESS.
--- NOTE | 2022-08-30 21:55 | NUR ---
CHECKED PATIENT. REPOSITIONED.
--- NOTE | 2022-08-30 23:30 | NUR ---
DR. VALERA CAME AND MADE ROUNDS. NO NEW ORDERS.
[2022-08-30] MEDS ORDERED: NOREPINEPHRINE 4 MG/4 ML VIAL IV ONE (23:31)
[2022-08-30] MEDS: NOREPINEPHRINE 8 MG in DEXTROSE 5% 250 ML IV PRN (23:33)
[2022-08-31] VITALS (32 sets, daily range): BP systolic 79–169; BP diastolic 34–78; PULSE 82–112; RESP 8–36; TEMP 98–98.6; O2SAT 96–100
--- NOTE | 2022-08-31 | NUR ---
ORAL CARE AND BLOOD SUGAR CHECK DONE.
[2022-08-31] MEDS: BLOOD GLUCOSE MONITORING 1 DEV DEV FS SCH ×4 (00:02→18:45)
[2022-08-31] MEDS: Z-GUARD PASTE TP SCH ×2 (01:00→13:00)
--- NOTE | 2022-08-31 01:27 | NUR ---
PT IS AWAKE, NOT IN DISTRESS.
[2022-08-31] MEDS: ALBUTEROL SULFATE/IPRATROPIU 3 ML SOL IH SCH ×4 (01:42→19:26)
--- NOTE | 2022-08-31 02:33 | NUR ---
PT V/S WNL AT THIS TIME. REPOSITIONING DONE.
[2022-08-31 05:32] LABS: BASOPHILS # (AUTO) 0.1 K/uL (0.00-0.22); BASOPHILS % (AUTO) 0.7 % (0.0-2.0); EOSINOPHILS # (AUTO) 0.7 K/uL (0-0.4); EOSINOPHILS % (AUTO) 6.4 % (0.0-4.0); HEMATOCRIT 22.8 % (36-48); HEMOGLOBIN 7.3 g/dL (12.0-16.0); LYMPHOCYTES # (AUTO) 2.5 K/uL (2.5-16.5); LYMPHOCYTES % (AUTO) 24.3 % (20.5-51.1); MEAN CORPUSCULAR HEMOGLOBIN 33 pg (27-31); MEAN CORPUSCULAR HGB CONC 32 g/dL (33-37); MEAN CORPUSCULAR VOLUME 101.8 fL (80-94); MONOCYTES # (AUTO) 1.1 K/uL (0.8-1.0); MONOCYTES % (AUTO) 10.8 % (1.7-9.3); NEUTROPHILS % (AUTO) 57.8 % (42.2-75.2); PLATELET COUNT (AUTO) 139 K/uL (140-450); RED BLOOD CELL COUNT(AUTO) 2.24 MIL/uL (4.20-5.40); WHITE BLOOD COUNT (AUTO) 10.5 K/uL (4.8-10.8)
[2022-08-31 05:42] LABS: ANION GAP 11.8 (8-16); CARBON DIOXIDE 26.9 mmol/L (21-32); CHLORIDE 101 mmol/L (98-107); GLUCOSE 102 mg/dL (74-106); POTASSIUM 3.7 mmol/L (3.5-5.1); SODIUM SERUM 136 mmol/L (136-145); UREA NITROGEN, BLOOD 15 mg/dL (7-18)
[2022-08-31 05:46] LABS: MAGNESIUM 1.8 mg/dL (1.8-2.4); PHOSPHORUS 3.7 mg/dL (2.5-4.9)
[2022-08-31] MEDS: LEVOTHYROXINE 0.1 MG TAB PO SCH (06:29)
--- NOTE | 2022-08-31 07:30 | NUR ---
Received report from shift boss nurse KRYSTAL Campo. Patient is able to track people with eyes, unable to assess if patient understands commands. PERRL noted. Currently on ETT to vent A/C PRVC FIO2 24%, VT 350, RR 16, Peep 5 with SpO2 saturation of 97%. Sinus Rhythm on monitor. Abdomen is soft. Patient has NGT to left nare to low intermittent suctioning received patient with 100 ml of green fluid. Sacral wound to skin and abdominal wound with brown tissue and pink colored tissue around wound. Left IJ infusing NS TKO at 5 ml/hr and Levophed at 4 mcg/min no redness or ecchymosis noted dressing dry and intact. Mckeon catheter to gravity with no dependent loops with clear yellow urine. Patient has heel bilateral heel protectors and air mattress for skin safety. Call light within patients reach, contact precaution, HOB 30 degrees for aspiration precaution, bed wheels locked and in lowest position.
--- NOTE | 2022-08-31 07:30 | NUR ---
ENDORSED TO DAYSNHFT NURSE PEPE RN. FOR CONTINUITY OF CARE.
--- NOTE | 2022-08-31 09:00 | NUR ---
Dr. Evangelista rounded at patients bedside. No new orders received, only to try wean her off the Levophed. Will continue plan of care.
--- NOTE | 2022-08-31 09:30 | NUR ---
Dr. Lopez rounded at patients bedside. Gave orders to have patient dialyzed tomorrow. Will continue to follow plan of care.
[2022-08-31] MEDS: PANTOPRAZOLE 40 MG INJ VIAL IVP SCH (09:36)
[2022-08-31] MEDS: METOCLOPRAMIDE 10 MG/2 ML INJ VIAL IVP SCH ×3 (09:37→22:40)
[2022-08-31] MEDS: EPOETIN ALFA-EPBX 10,000 UNITS/ML VIAL SUBQ SCH (09:37)
[2022-08-31] MEDS: MICAFUNGIN SODIUM 100 MG in NACL 0.9% 100 ML IV SCH (09:40)
[2022-08-31] MEDS: NYSTATIN CRE 100 MU/GM 15 GM TUBE TP SCH ×2 (09:41→21:19)
--- NOTE | 2022-08-31 10:00 | NUR ---
Computer Help Desk Specialist Janice called regarding patients PICC Line per housekeeper supervisor "there is a shortage of picc line nurses right now, Christiano said he would come tomorrow, no time given yet."
[2022-08-31] MEDS ORDERED: [UNRECOGNIZED DRUG - OTHER] IV SCH ×4 (10:43)
[2022-08-31] MEDS ORDERED: AMINO ACIDS IV SCH ×4 (10:43)
[2022-08-31] MEDS ORDERED: DEXTROSE IV SCH ×4 (10:43)
[2022-08-31] MEDS ORDERED: MULTIVITAMIN IV SCH ×4 (10:43)
[2022-08-31] MEDS ORDERED: TPN PER PHARMACY MC PRN (11:40)
[2022-08-31 11:45] LABS: APPEARANCE,URINE CLEAR (CLEAR); BILIRUBIN,URINE 1+ (NEGATIVE); BLOOD, URINE 3+ (NEGATIVE); COLOR,URINE YELLOW (YELLOW); LEUKOCYTE ESTERASE ,URINE 1+ (NEGATIVE); NITRITE, URINE NEGATIVE (NEGATIVE); PH,URINE 8.5 (5.0-9.0); UGLUCOSE TRACE (NEGATIVE)
--- NOTE | 2022-08-31 12:00 | NUR ---
Per MD order. Mckeon cath d/c intact by deflating retention balloon - removed intact with no diff. Pt. tolerated with no difficulty. Pt. is NOT producing any urine and on hemodialysis x3 per week. Also, Qi rig manager called for pt. to be dialysis tomorrow, Sunday per MD order. PICC line placement order received and arrangement have been made for placement with warehouse team member.
[2022-08-31] MEDS: GAUZE TP SCH (13:00)
[2022-08-31] MEDS: THERAHONEY GEL 42.5 GM TP SCH (13:00)
[2022-08-31] MEDS: ALGINATE ROPE MC SCH (13:00)
--- NOTE | 2022-08-31 14:00 | NUR ---
Dr. Gillis rounded at patients bedside. Per MD wants a LTAC evaluation to be able to do a plan for the patient. Will continue to follow plan of care.
--- NOTE | 2022-08-31 15:35 | NUR ---
Reached out to Dr. Evangelista about patient not being able to have PICC line inserted due to not enough PICC line nurses being available, will have to wait until tomorrow. Suggested if ER MD is able to do a triple lumen in the femoral in case we need access. Per MD Evangelista "we can do a triple lumen if needed."
[2022-08-31] MEDS: LEVOFLOXACIN 500 MG/D5W PREMIX 100 ML IV SCH (18:54)
--- NOTE | 2022-08-31 19:30 | NUR ---
Endorsed report to rn shift mgr nurse Jahaira RN and Jared Coy RN for continuity of care
--- NOTE | 2022-08-31 19:31 | NUR ---
RECEIVED REPORT FROM DAYSHIFT NURSE PEPE RN. PT IS AWAKE, OPENS EYES AND TRACKING BUT NOT FOLLOWING COMMANDS. ON SEMI-GARDNER'S POSITION. NOT IN DISTRESS. TRACH TO VENT SETTINGS: A/C PRVC FIO2 28%, TV 350, RATE 12, PEEP 5. WITH NGT TO LT NARES CONNECTED TO LIS. WITH LT IJ CATH (DANIAL WITH PIG TAIL). PIGTAIL FLOWING WELL TO LEVOPHED 3MCG/MIN. WITH BILATERAL PERIPHERAL IV ACCESS G 20 ON BOTH HANDS. WITH R ARM IV ACCESS FLOWING WITH NS AT TKO. PT HAS MULTIPLE SKIN PROBLEM MID-ABDOMEN OLD GT SITE, SACRAL, BACK AND BILATERAL CALF WOUND. PT CALL LIGHT WITIHIN REACH PT BED IS LOCKED AND LOW POSITION WILL CONTINUE TO MONITOR.
--- NOTE | 2022-08-31 20:00 | NUR ---
TPN NOT ADMINISTERED DUE TO NO AVAILABLE ACCESS. IJ CATH ACCESS NOT GOOD FOR TPN ADMINISTRATION. WILL INFORM PHARMACY IN THE MORNING. WILL ENDORSE TO DAYSHIFT NURSE. FOR PICC LINE INSERTION TOMORROW AWAITING FOR CONSENT.
--- NOTE | 2022-08-31 21:20 | NUR ---
CALLED PT PATEL KENNY FUENTES CONTACT NUMBER IN ATTEMPT TO OBTAIN A CONSENT FOR PICC LINE INSERTION TOMORROW. NO ONE ANSWERED. LEFT A VOICE MESSAGE TO CALL BACK.
[2022-09-01] VITALS (29 sets, daily range): BP systolic 76–164; BP diastolic 45–92; PULSE 81–100; RESP 16–30; TEMP 96.5–97.1; O2SAT 97–100
--- NOTE | 2022-09-01 | NUR ---
ORAL CARE DONE USING VAP KIT. PT REPOSITIONED. STILL ON LEVOPHED DRIP AT 3MCG/HR.
[2022-09-01] MEDS: BLOOD GLUCOSE MONITORING 1 DEV DEV FS SCH ×5 (00:52→23:48)
--- NOTE | 2022-09-01 01:00 | NUR ---
PT IS RESTING AND ASLEEP. NO SIGNS OF SOB. KEPT COMFORTABLE. WILL CONTINUE TO MONITOR.
[2022-09-01] MEDS: Z-GUARD PASTE TP SCH ×2 (01:18→17:38)
[2022-09-01] MEDS: ALBUTEROL SULFATE/IPRATROPIU 3 ML SOL IH SCH ×4 (01:18→18:45)
--- NOTE | 2022-09-01 03:00 | NUR ---
PT ASLEEP. STILL ON LEVOPHED DRIP. TRACHE TO VENT WITH FIO2 AT 24%, NOT IN DISTRESS.
[2022-09-01 04:56] LABS: BASOPHILS # (AUTO) 0.1 K/uL (0.00-0.22); BASOPHILS % (AUTO) 0.7 % (0.0-2.0); EOSINOPHILS # (AUTO) 0.3 K/uL (0-0.4); EOSINOPHILS % (AUTO) 4.1 % (0.0-4.0); HEMATOCRIT 23.8 % (36-48); HEMOGLOBIN 7.6 g/dL (12.0-16.0); LYMPHOCYTES % (AUTO) 24.8 % (20.5-51.1); MEAN CORPUSCULAR HEMOGLOBIN 33 pg (27-31); MEAN CORPUSCULAR HGB CONC 32 g/dL (33-37); MEAN CORPUSCULAR VOLUME 102.3 fL (80-94); MONOCYTES # (AUTO) 0.9 K/uL (0.8-1.0); MONOCYTES % (AUTO) 10.9 % (1.7-9.3); NEUTROPHILS # (AUTO) 4.8 K/uL (1.8-7.7); NEUTROPHILS % (AUTO) 59.5 % (42.2-75.2); PLATELET COUNT (AUTO) 161 K/uL (140-450); RED BLOOD CELL COUNT(AUTO) 2.33 MIL/uL (4.20-5.40); RED CELL DISTRIBUTION WIDTH 20.3 % (11.6-13.7); WHITE BLOOD COUNT (AUTO) 8.1 K/uL (4.8-10.8)
--- NOTE | 2022-09-01 05:00 | NUR ---
MORNING CARE DONE, SPONGE BATH DONE. LINENS AND GOWN CHANGED. WOUND DRESSINGS CHANGED - KEPT DRY AND INTACT. NO BM NOTED.
--- NOTE | 2022-09-01 05:30 | NUR ---
RIGHT HAND PERIPHERAL LINE LEAKING. REMOVED ASEPTICALLY AND PRESSURE APPLIED TO PREVENT BLEEDING.
[2022-09-01 05:51] LABS: ANION GAP 14.8 (8-16); CARBON DIOXIDE 25.2 mmol/L (21-32); CHLORIDE 100 mmol/L (98-107); CREATININE 2.6 mg/dL (0.6-1.3); GLUCOSE 100 mg/dL (74-106); SODIUM SERUM 136 mmol/L (136-145); UREA NITROGEN, BLOOD 17 mg/dL (7-18)
[2022-09-01 06:02] LABS: MAGNESIUM 1.8 mg/dL (1.8-2.4); PHOSPHORUS 4.8 mg/dL (2.5-4.9)
[2022-09-01] MEDS: LEVOTHYROXINE 0.1 MG TAB PO SCH (06:30)
--- NOTE | 2022-09-01 06:58 | NUR ---
UNABLE TO CONTACT PT'S SON KENNY. STILL WASN'T ABLE TO OBTAIN CONSENT FOR PICC LINE INSERTION. WILL ENDORSE TO DAY SHIFT NURSE.
--- NOTE | 2022-09-01 07:28 | NUR ---
ENDORSED PT TO DAYSHIFT NURSE WITH CHARGE NURSE FOR CONTINUITY OF CARE. ALL QUESTIONS ANSWERED.
--- NOTE | 2022-09-01 07:33 | NUR ---
Received the patient from the off-going nurse, no S/S of pain/discomfort. Patient remains responsive to tactile stimuli, when awake is able to track with her eyes, non-verbal. Patient observed on the vent via tracheostomy collar, (see documentation for settings) tracheostomy care performed by the RT. Patient has a (LT) nare NG-Tube in place secured to her nose, skin intact and a hooked to intermittent suction, with minimal brownish/reddish color secretions. Patient (LT) IJ Trialysis catheter in place, site WNL, patent with Levophed continuous infusion (see eMAR for details). LUQ area excoriation improving, drainage bag changed by the previous shift, no drainage observed; BID order for wound care in place. Patient observed with some improvement of her anasarca, remains +4 pitting edema. Patient observed with sacral Pressure Ulcer, with Mepilex in place and bilateral posterior dressing in place ( see wound care assessment). Patient observed with bilateral heel booties, skin is dry and flaky. Patient is on a RODRIGO mattress, and on a Q2H T&R schedule. Patient is scheduled for her HD treatment today. TPN feeding on hold, pending PICC line replacement today. Patient is stable on the bed in the lowest position, wheels locked, call gaffney within reach and fall and contact precaution in place.
--- NOTE | 2022-09-01 08:15 | NUR ---
Called pt.'s son Isai Silva [phone]. Explained that pt. needs a PICC line placed. He provided consent via telephone with 2nd RN Sherita. All forms for consent completed. Called hospital's cook house supervisor to arrange for PICC line placement RN to be called. She agreed.
--- NOTE | 2022-09-01 08:59 | NUR ---
Care assumed. Pt. with no S/S of pain/discomfort. Trach collar in place with ventilator present, FiO2 24%, pt. tolerating with no difficulty. NG tube to left nasal nare to suction secured with tape with no diff. Johnnie cath. in place to left neck area with dressing intact. Internal jugular Trialysis catheter in place, site WNL, patent with Levophed continuous infusion. Anasarca remains +4 pitting edema, not new to pt. Sacral Pressure Ulcer, with Mepilex in place and bilateral posterior dressing in place. Heel protectors in place for skin protection. Pt. will be dialyzed today. Call light in within pt. Reach. Pt. With no acute distress. Will cont. to monitor.
[2022-09-01] MEDS: METOCLOPRAMIDE 10 MG/2 ML INJ VIAL IVP SCH ×3 (10:11→23:06)
[2022-09-01] MEDS: MICAFUNGIN SODIUM 100 MG in NACL 0.9% 100 ML IV SCH (10:12)
[2022-09-01] MEDS: PANTOPRAZOLE 40 MG INJ VIAL IVP SCH (10:13)
[2022-09-01] MEDS: NYSTATIN CRE 100 MU/GM 15 GM TUBE TP SCH ×2 (10:16→20:42)
--- NOTE | 2022-09-01 10:30 | NUR ---
Pt. with no change in status. No acute distress. Vent in place and trach intact. Pt. awaiting PICC line placement and dialysis for today. Levophed infusing with no diff. to Johnnie pig tail. Will cont. to monitor.
[2022-09-01] MEDS ORDERED: TPN PER PHARMACY MC PRN ×2 (10:40→19:05)
--- NOTE | 2022-09-01 11:30 | NUR ---
Hemodialysis started with no diff. by arm rest builder. Pt. with no change in status. NO acute distress. See arm rest builder for specific documentation. Will cont. to monitor closely.
[2022-09-01] MEDS: NOREPINEPHRINE 8 MG in DEXTROSE 5% 250 ML IV PRN (11:34)
--- NOTE | 2022-09-01 11:50 | NUR ---
09/01/22 RD FOLLOW UP COMPLETED PLEASE REFER TO NUTRITION ASSESSMENT UNDER CARE ACTIVITY FOR ESTIMATED NUTRITIONAL NEEDS. 1. CONTINUE NPO DIET TOLERATED. 2. ONCE MEDICALLY APPROPRIATE FOLLOW TPN RECOMMENDATIONS PER PHARMACY. 3. RD WILL CONTINUE TO MONITOR WEIGHTS, NUTRITIONAL NEEDS, GI ISSUES AND SKIN INTEGRITY. CONSULT RD IF TUBE FEEDING RECOMMENDATION IS NEEDED. 4. RD TO FOLLOW-UP 2-3 DAYS, HIGH RISK FRANK MAGDALENO RD
[2022-09-01] MEDS: GAUZE TP SCH (13:00)
--- NOTE | 2022-09-01 13:24 | NUR ---
UNABLE TO GIVE TREATMENT DUE TO PT GETTING DALASIS. NO SOB NOTED, GOOD CHEST RISE. WILL CONT TO MONITOR THROUGHOUT SHIFT.
--- NOTE | 2022-09-01 14:00 | NUR ---
PICC line placement RN arrived for placement. Consent has been received via telephone by pt.'s son, Isai Silva. Please see his documentation for specific details.
--- NOTE | 2022-09-01 15:00 | NUR ---
PICC line placement RN completed line placement. X-ray done to determine placement and positive placement verified. Per X-ray and PICC line RN it can now be used for IV line infusing. Dressing intact and line intact. Pt. with no change in status. NO sob. Tach in place. Will cont. to monitor.
[2022-09-01] MEDS: ALGINATE ROPE MC SCH (17:36)
[2022-09-01] MEDS: THERAHONEY GEL 42.5 GM TP SCH (17:37)
--- NOTE | 2022-09-01 18:00 | NUR ---
Total ICU pt. cleaning and change of linen done with assistance from Colin RN. Pt. tolerated with no diff. NO acute distress. NO change in status. Trach in place with ventilator with no changes FiO2 24%. PICC line in place with Levophed infusing at 3 mcg/min with no diff. Will cont. to monitor.
[2022-09-01] MEDS ORDERED: VANCOMYCIN PER PHARMACY MC PRN (19:10)
--- NOTE | 2022-09-01 19:30 | NUR ---
RECEIVED REPORT FROM [facility] NURSE, NICOLETTE,RN FOR CONTINUITY OF CARE. ALL CARES ASSUMED. RECEIVED PT IN BED ON SEMI-GARDNER'S POSITION WITH SIDE RAILS RAISED UP. PT IS SEEN ASLEEP, AROUSABLE AND ABLE TO TRACKS WITH EYES. WITH NGT ON LEFT NARES ATTACHED TO LOW INTERMITTENT SUCTION AND NOTED WITH YELLOWISH TO GREENISH DRAINAGE.PT IS WITH TRACHEOSTOMY TUBE ATTACHED TO VENT ON A/C PRVC MODE WITH FIO2 24% RATE-15 TV-350 PEEP-5 - SPO2 OF 100%,EQUAL CHEST EXPANSION NOTED, PT NOT IN RESP DISTRESS. WITH RIGHT IJ ACCESS WITH DANIAL CATH WITH PIGTAIL IN PLACE - DRESSING DRY AND INTACT. PT HAD DIALYSIS IN THE MORNING SHIFT WITH 1.5.L OUTPUT. WITH RIGHT UPPER ARM PICC LINE (NEWLY INSERTED) -DRESSING DRY AND INTACT- WITH LEVOPHED AT 3 MCG/MIN AND NS AT TKO - FLOWING WELL. ON SINUS RHYTHM ON PLATER BARREL. WITH ABDOMINAL WOUND FROM INFECTED G-TUBE SITE - DRESSING DRY AND INTACT- NO DRAINAGE NOTED WITH SOME AREAS OF SCABBING NOTED. PERIPHERAL IV OVER LEFT ARM GAUGE 20 ATTACHED TO SALINE LOCKED. WITH BILATERAL ARM EDEMA NOTED - NON PITTING - ELEVATED WITH PILLOWS. WITH WOUND DRESSINGS ON LEGS - DRY AND INTACT. BILATERAL HEEL PROTECTORS IN PLACE, WITH PILLOWS UNDERNEATH. KEPT BED LOCKED AND IN LOW POSITION. SAFETY MEASURES OBSERVED. CALL LIGHT PLACED WITHIN REACHED. WILL MONITOR PT. CLOSELY ENDORSED. PT NOT STARTED YET WITH TPN.
--- NOTE | 2022-09-01 19:30 | NUR ---
Report given to plant operator/shift supervisor Zbigniew RN for plant operator/shift supervisor. Pt. with no acute distress. No change in status. No SOB, trach in place. Levophed still infusing at 3mcg/min. Pt. with no signs of pain or discomfort. All care transferred and questions answered. Due to PICC line placement at 15:00, pharmacy could not order TPN infusion. TPN will be started tomorrow. Dr. Corral made aware.
--- NOTE | 2022-09-01 20:14 | NUR ---
DR. SEVILLA INFORMED OF PT STILL NOT RECEIVING TPN - ACKNOWLEDGED. ALSO INFORMED HIM THAT I WILL INFORM PHARMACY IN THE MORNING TO PREPARE A TPN BAG SO DAY SHIFT NURSES WILL BE ABLE TO START THE TPN.
[2022-09-01] MEDS ORDERED: NYSTATIN CRE 100 MU/GM 15 GM TUBE TP SCH (21:00)
--- NOTE | 2022-09-01 21:00 | NUR ---
PT IS ASLEEP AND AROU[place]. REPOSITIONED IN BED. LEVOPHED STILL AT 3 MCG/MIN. AFEBRILE.
[2022-09-02] VITALS (31 sets, daily range): BP systolic 90–128; BP diastolic 42–69; PULSE 85–100; RESP 16–30; TEMP 96.5–98.8; O2SAT 96–100
[2022-09-02] MEDS: ALBUTEROL SULFATE/IPRATROPIU 3 ML SOL IH SCH ×4 (01:15→19:06)
[2022-09-02] MEDS: Z-GUARD PASTE TP SCH ×2 (01:46→13:00)
[2022-09-02] MEDS: BLOOD GLUCOSE MONITORING 1 DEV DEV FS SCH ×3 (06:00→17:20)
[2022-09-02 06:05] LABS: BASOPHILS # (AUTO) 0.1 K/uL (0.00-0.22); BASOPHILS % (AUTO) 0.6 % (0.0-2.0); EOSINOPHILS # (AUTO) 0.2 K/uL (0-0.4); EOSINOPHILS % (AUTO) 2.4 % (0.0-4.0); HEMATOCRIT 21.8 % (36-48); LYMPHOCYTES # (AUTO) 1.9 K/uL (2.5-16.5); LYMPHOCYTES % (AUTO) 21.5 % (20.5-51.1); MEAN CORPUSCULAR HEMOGLOBIN 32 pg (27-31); MEAN CORPUSCULAR HGB CONC 32 g/dL (33-37); MEAN CORPUSCULAR VOLUME 101.2 fL (80-94); MONOCYTES # (AUTO) 0.9 K/uL (0.8-1.0); MONOCYTES % (AUTO) 10.3 % (1.7-9.3); NEUTROPHILS # (AUTO) 5.9 K/uL (1.8-7.7); NEUTROPHILS % (AUTO) 65.2 % (42.2-75.2); PLATELET COUNT (AUTO) 127 K/uL (140-450); RED BLOOD CELL COUNT(AUTO) 2.16 MIL/uL (4.20-5.40); RED CELL DISTRIBUTION WIDTH 19.7 % (11.6-13.7); WHITE BLOOD COUNT (AUTO) 9.1 K/uL (4.8-10.8)
--- NOTE | 2022-09-02 06:11 | NUR ---
RECEIVED CALL FROM LAB DEPT FOR CRITICAL LAB VALUES OF HGB-7.0 AND HCT-21.8.
--- NOTE | 2022-09-02 06:14 | NUR ---
DR. SEVILLA INFORMED OF PT'S CRITICAL LAB VALUES WITH ORDER FOR TRANSFUSION OF PRBC 1 UNIT AND TYPE AND SCREENING. CARRIED OUT.
[2022-09-02 06:23] LABS: ANION GAP 14.6 (8-16); CARBON DIOXIDE 25.5 mmol/L (21-32); CHLORIDE 100 mmol/L (98-107); CREATININE 2.4 mg/dL (0.6-1.3); GLUCOSE 93 mg/dL (74-106); POTASSIUM 4.1 mmol/L (3.5-5.1); SODIUM SERUM 136 mmol/L (136-145); UREA NITROGEN, BLOOD 13 mg/dL (7-18)
[2022-09-02] MEDS: LEVOTHYROXINE 0.1 MG TAB PO SCH (06:30)
--- NOTE | 2022-09-02 06:30 | NUR ---
MORNING CARE DONE. SPONGE BATH DONE AND LINENS CHANGED AND WOUND CARE DONE.
[2022-09-02 06:41] LABS: MAGNESIUM 1.7 mg/dL (1.8-2.4); PHOSPHORUS 4.5 mg/dL (2.5-4.9)
--- NOTE | 2022-09-02 07:08 | NUR ---
DR. SEVILLA ORDERED FOR 1 UNIT BLOOD TRANSFUSION. I CALLED THE SON KENNY FUENTES TO GET A CONSENT FOR 1 U PRBC TRANSFUSION, HOWEVER THE MAILBOX IS FULL. PER SON'S CELLPHONE INSTRUCTION, TO PRESS #SMS TO SEND THE DIRECT LINE OF ICU TO THE SON. ENDORSED TO DAY SHIFT RNNICOLE.
--- NOTE | 2022-09-02 07:20 | NUR ---
Report received from Zbigniew RN, all cares assumed. Pt awake, tracking. Pt intubated, AC/PRVC 16, 24%, 350, 5. Levophed 3mcg/min infusing to LOWELL PICC. NG tube to R nare, to low intermittent suction, moderate yellow clear fluid in suction canister. Bed in low and locked position.
[2022-09-02] MEDS: METOCLOPRAMIDE 10 MG/2 ML INJ VIAL IVP SCH ×3 (07:30→23:15)
--- NOTE | 2022-09-02 07:30 | NUR ---
REPORT GIVEN TO NICOLERN FOR CONTINUITY OF CARE. ALL QUESTIONS ANSWERED. PT IS FOR BLOOD TRANSFUSION AND TPN ADMINISTRATION. STILL ON LEVOPHED AT 3 MCG/MIN. NORMOTENSIVE, AFEBRILE AND NOT IN DISTRESS.
[2022-09-02] MEDS: NYSTATIN CRE 100 MU/GM 15 GM TUBE TP SCH ×2 (08:58→20:52)
[2022-09-02] MEDS: MICAFUNGIN SODIUM 100 MG in NACL 0.9% 100 ML IV SCH (08:59)
[2022-09-02] MEDS: PANTOPRAZOLE 40 MG INJ VIAL IVP SCH (08:59)
[2022-09-02] MEDS: EPOETIN ALFA-EPBX 10,000 UNITS/ML VIAL SUBQ SCH (09:09)
--- NOTE | 2022-09-02 09:25 | NUR ---
Received call from pt.'s son, Isai Silva, he consent for pt. to receive blood transfusion. Consent received telephonically. Consent witnessed by 2nd medical professional. See physical consent for in pt.'s chart for further details. Pt.'s primary nurse Colin RN notified.
--- NOTE | 2022-09-02 09:30 | NUR ---
Dr. David rounderika at bedside. Update given, plan of care discussed. Verbal orders received for 2g magnesium IVPB once; obtain stool sample for occult test.
--- NOTE | 2022-09-02 10:10 | NUR ---
Dr. Morales rounderika at bedside. Update given, plan of care discussed. Verbal orders received for midodrine 10mg TID though NG tube. Hold suction for one hour after medication administration. Received verbal order to titrate levophed drip to systolic > 85mmHg.
--- NOTE | 2022-09-02 10:45 | NUR ---
Attempted to sisal picker blood. No blood bank staff to release blood. Staff to call ICU when blood bank staff arrives.
--- NOTE | 2022-09-02 11:22 | NUR ---
Called lab, no blood bank staff available to release blood.
--- NOTE | 2022-09-02 12:41 | NUR ---
BLOOD TRANSFUSION PRBC unit received from blood bank. Verified with Abdirashid RICE. Blood administration initiated at 1218. No transfusion reactions noted after 15 minutes. Will continue to monitor for any transfusion reaction.
[2022-09-02] MEDS: THERAHONEY GEL 42.5 GM TP SCH (13:00)
[2022-09-02] MEDS: ALGINATE ROPE MC SCH (13:00)
[2022-09-02] MEDS: GAUZE TP SCH (13:00)
[2022-09-02] MEDS ORDERED: MAG SULF 2000 MG/WATER PREMIX 50 ML IV SCH (14:04)
[2022-09-02] MEDS: MIDODRINE 5 MG TAB PO SCH ×2 (14:06→16:42)
--- NOTE | 2022-09-02 14:15 | NUR ---
Blood transfusion complete, no signs of transfusion reaction noted. VSS.
--- NOTE | 2022-09-02 14:30 | NUR ---
Wound care completed. Pt grimaced during turning. Vital signs stable.
[2022-09-02] MEDS: NOREPINEPHRINE 8 MG in DEXTROSE 5% 250 ML IV PRN (15:03)
[2022-09-02] MEDS: LEVOFLOXACIN 500 MG/D5W PREMIX 100 ML IV SCH (18:00)
--- NOTE | 2022-09-02 19:05 | NUR ---
RT AT BEDSIDE, NO NEW CHANGES TO VENT SETTINGS
--- NOTE | 2022-09-02 19:10 | NUR ---
TRANSFER OF CARE FROM DAY SHIFT, REPORT RECEIVED FROM NICOLE Boland RN. PATIENT RECEIVED IN BED AWAKE, TRACH TO VENT WITH THE FOLLOWING SETTINGS: AC/VC, FIO2 = 24%, VT= 350, R = 16, PEEP = 5. PATIENT HAS NG TUBE TO LEFT NARE WITH SUCTION. PATIENT HAS DANIAL CATH LEFT IJ. PATIENT HAS LOWELL PICC LINE WITH THE FOLLOWING MEDICATIONS CURRENTLY INFUSING: LEVOPHED 8MG @ 2MCG/MIN, TPN @60ML/HR,AND NS @5ML/HR. PATIENT HAS THE FOLLOWING WOUNDS ON HER BODY: SACRUM = PRESSURE ULCER ABDOMEN = SURGICAL WOUND WITH PURULENT DRAINAGE (GREEN), CURRENTLY COVERED WITH DRY DRESSING LEFT LOWER LATERAL LEG = SKIN TEAR RIGHT LOWER/POSTERIOR LATERAL LEG = SKIN TEARS PATIENT HAS THE FOLLOWING VITALS AT START OF SHIFT: HR = 90, O2 SAT = 97%, BP = 105/472, R = 16, TEMP = 97.2F. WILL CONTINUE TO MONITOR PATIENT FOR ANY CHANGES IN CONDITION AND NOTIFY MD EXPEDITIOUSLY
[2022-09-02] MEDS ORDERED: MULTIVITAMIN IV SCH ×4 (20:00)
[2022-09-02] MEDS ORDERED: [UNRECOGNIZED DRUG - OTHER] IV SCH ×4 (20:00)
[2022-09-02] MEDS ORDERED: AMINO ACIDS IV SCH ×4 (20:00)
[2022-09-02] MEDS ORDERED: DEXTROSE IV SCH ×4 (20:00)
--- NOTE | 2022-09-02 22:30 | NUR ---
RT AT BEDSIDE, NO NEW CHANGES TO VENT SETTINGS
[2022-09-03] VITALS (32 sets, daily range): BP systolic 57–130; BP diastolic 31–71; PULSE 79–93; RESP 16–35; TEMP 96.9–98.4; O2SAT 95–100
[2022-09-03] MEDS: Z-GUARD PASTE TP SCH ×2 (00:49→13:53)
[2022-09-03] MEDS: BLOOD GLUCOSE MONITORING 1 DEV DEV FS SCH ×5 (00:49→23:13)
[2022-09-03] MEDS: ALBUTEROL SULFATE/IPRATROPIU 3 ML SOL IH SCH ×4 (01:19→18:57)
[2022-09-03] MEDS: INSULIN LISPRO SLIDING SCALE 100 UNITS/ML VIAL SUBQ PRN ×3 (02:48→11:58)
--- NOTE | 2022-09-03 04:30 | NUR ---
RT AT BEDSIDE, NO NEW CHANGES TO VENT SETTINGS
[2022-09-03 05:06] LABS: ALBUMIN 1.3 g/dL (3.4-5.0); ANION GAP 11.5 (8-16); ASPARTATE AMINOTRANSFERASE 25 U/L (15-37); CARBON DIOXIDE 28.7 mmol/L (21-32); CHLORIDE 99 mmol/L (98-107); CREATININE 2.9 mg/dL (0.6-1.3); GLUCOSE 214 mg/dL (74-106); MAGNESIUM 2.2 mg/dL (1.8-2.4); PHOSPHORUS 4.9 mg/dL (2.5-4.9); POTASSIUM 4.2 mmol/L (3.5-5.1); SODIUM SERUM 135 mmol/L (136-145); TOTAL BILIRUBIN 0.8 mg/dL (0.0-1.0); UREA NITROGEN, BLOOD 17 mg/dL (7-18)
[2022-09-03] MEDS: LEVOTHYROXINE 0.1 MG TAB PO SCH (06:30)
--- NOTE | 2022-09-03 07:25 | NUR ---
Report received from Luz Maria RICE, all cares assumed. Pt awake, calm, tracking. Pt intubated, AC/PRVC 16, 24%, 350, 5. Levophed 2 mcg/min infusing to LOWELL PICC. NG tube to R nare clamped. Bed in low and locked position.
[2022-09-03] MEDS: METOCLOPRAMIDE 10 MG/2 ML INJ VIAL IVP SCH ×3 (07:42→23:06)
[2022-09-03 07:43] LABS: BASOPHILS % (AUTO) 0.5 % (0.0-2.0); EOSINOPHILS # (AUTO) 0.2 K/uL (0-0.4); EOSINOPHILS % (AUTO) 2.1 % (0.0-4.0); HEMATOCRIT 25.6 % (36-48); HEMOGLOBIN 8.2 g/dL (12.0-16.0); LYMPHOCYTES # (AUTO) 1.6 K/uL (2.5-16.5); MEAN CORPUSCULAR HEMOGLOBIN 31 pg (27-31); MEAN CORPUSCULAR HGB CONC 32 g/dL (33-37); MEAN CORPUSCULAR VOLUME 97.5 fL (80-94); MONOCYTES # (AUTO) 0.9 K/uL (0.8-1.0); NEUTROPHILS # (AUTO) 5.9 K/uL (1.8-7.7); NEUTROPHILS % (AUTO) 68.6 % (42.2-75.2); PLATELET COUNT (AUTO) 152 K/uL (140-450); RED BLOOD CELL COUNT(AUTO) 2.63 MIL/uL (4.20-5.40); RED CELL DISTRIBUTION WIDTH 22.4 % (11.6-13.7); WHITE BLOOD COUNT (AUTO) 8.6 K/uL (4.8-10.8)
[2022-09-03 08:42] LABS: LYMPHOCYTES % (AUTO) 18.5 % (20.5-51.1); MONOCYTES % (AUTO) 10.3 % (1.7-9.3)
[2022-09-03] MEDS: MIDODRINE 5 MG TAB PO SCH ×3 (08:48→16:19)
[2022-09-03] MEDS: PANTOPRAZOLE 40 MG INJ VIAL IVP SCH (08:48)
[2022-09-03] MEDS: NYSTATIN CRE 100 MU/GM 15 GM TUBE TP SCH ×2 (08:48→20:04)
[2022-09-03] MEDS: MICAFUNGIN SODIUM 100 MG in NACL 0.9% 100 ML IV SCH (08:50)
--- NOTE | 2022-09-03 09:30 | NUR ---
Dr. Morales rounding at bedside, update given, plan of care discussed. Received verbal order for 5% Albumin 250mL once.
[2022-09-03] MEDS ORDERED: ALBUMIN HUMAN 5 % 250 ML IV ONE (09:31)
--- NOTE | 2022-09-03 11:10 | NUR ---
Dr. David rounding at bedside, update given, plan of care discussed. No new orders at this time.
[2022-09-03] MEDS: ALGINATE ROPE MC SCH (13:00)
[2022-09-03] MEDS: GAUZE TP SCH (13:00)
[2022-09-03] MEDS: THERAHONEY GEL 42.5 GM TP SCH (13:52)
--- NOTE | 2022-09-03 15:00 | NUR ---
Dr. Cox rounding at bedside, update given, plan of care discussed. Verbal order to stop Vancomycin.
--- NOTE | 2022-09-03 16:26 | NUR ---
09/03/22 RD FOLLOW UP COMPLETED.PLEASE REFER TO NUTRITION ASSESSMENT UNDER CARE ACTIVITY FOR ESTIMATED NUTRITIONAL NEEDS. 1. CONTINUE NPO DIET TOLERATED; TPN PER PHARMACY. 2. MONITOR WEIGHTS, NUTRITIONAL NEEDS, AND GI ISSUES. 3. RD TO FOLLOW-UP IN 2-3 DAYS PATIENT IS HIGH RISK. RENITA KIM RD
--- NOTE | 2022-09-03 19:30 | NUR ---
RECEIVED REPORT FROM [facility] NURSE, GEORGE,RN FOR CONTINUITY OF CARE. ALL CARES ASSUMED. RECEIVED PT IN BED ON SEMI-GARDNER'S POSITION WITH SIDE RAILS RAISED UP. PT IS SEEN AWAKE, ABLE TO TRACK WITH EYES. WITH NGT ON LEFT NARES.PT IS WITH TRACHEOSTOMY TUBE ATTACHED TO VENT ON A/C PRVC MODE WITH FIO2 24% RATE-16 TV-350 PEEP-5 - SPO2 OF 97%,EQUAL CHEST EXPANSION NOTED, PT NOT IN RESP DISTRESS. WITH RIGHT IJ ACCESS WITH DANIAL CATH WITH PIGTAIL IN PLACE - DRESSING DRY AND INTACT. WITH RIGHT UPPER ARM PICC LINE-DRESSING DRY AND INTACT- WITH LEVOPHED AT 1.7 MCG/MIN, NS AT TKO AND TPN AT 60 ML/HR - FLOWING WELL. ON SINUS RHYTHM ON REPRODUCTIVE HEALTHCARE ASSISTANT. WITH ABDOMINAL WOUND FROM INFECTED G-TUBE SITE - DRESSING DRY AND INTACT- WITH MILD OOZING AND SOME AREAS OF SCABBING NOTED. WITH BILATERAL ARM EDEMA NOTED - NON PITTING. WITH BACK AND SACRAL WOUND WITH DRESSINGS- DRY AND INTACT. WITH BILATERAL WOUND DRESSINGS ON LEGS - DRY AND INTACT. BILATERAL HEEL PROTECTORS IN PLACE, WITH PILLOWS UNDERNEATH. NOTED WITH PURPLISH TOES. ASSESSED PTS GENERAL HEALTH STATUS. ARMS ELEVATED WITH PILLOW. KEPT BED LOCKED AND IN LOW POSITION. SAFETY MEASURES OBSERVED. CALL LIGHT PLACED WITHIN REACHED. WILL MONITOR PT. CLOSELY
--- NOTE | 2022-09-03 20:00 | NUR ---
TURNED PT TO SIDE. ORAL CARE GIVEN. KEPT PT WARM AND IN COMFORTABLE IN BED AND PROVIDED NON STIMULATING ENVIRONMENT. CALL LIGHT PLACED WITHIN REACH.
[2022-09-03] MEDS: INSULIN REGULAR IV SCH ×5 (20:02)
[2022-09-03] MEDS: [UNRECOGNIZED DRUG - OTHER] IV SCH ×5 (20:02)
[2022-09-03] MEDS: HUMAN IV SCH ×5 (20:02)
[2022-09-03] MEDS: MULTIVITAMIN IV SCH ×5 (20:02)
[2022-09-03] MEDS: DEXTROSE 50% IV SCH ×5 (20:02)
--- NOTE | 2022-09-03 22:00 | NUR ---
PT IS ASLEEP WITH VS STABLE. SYSTOLIC BP ABOVE SYSTOLIC GOAL. NOT IN DISTRESS.
[2022-09-04] VITALS (33 sets, daily range): BP systolic 87–150; BP diastolic 39–85; PULSE 85–99; RESP 8–35; TEMP 96.5–98.5; O2SAT 94–100
--- NOTE | 2022-09-04 | NUR ---
PT ASLEEP. TURNED TO SIDE. NOT IN DISTRESS.
[2022-09-04] MEDS: Z-GUARD PASTE TP SCH ×2 (00:49→13:27)
--- NOTE | 2022-09-04 01:00 | NUR ---
WOUND CARE DONE AND TREATED ACCORDINGLY. PHOTOS TAKEN. KEPT DRESSINGS DRY AND INTACT.
[2022-09-04] MEDS: ALBUTEROL SULFATE/IPRATROPIU 3 ML SOL IH SCH ×4 (01:17→19:29)
--- NOTE | 2022-09-04 04:00 | NUR ---
MORNING CARE DONE. SPONGE BATH DONE. LINENS AND GOWN CHANGED. KEPT COMFORTABLE IN BED.
--- NOTE | 2022-09-04 05:00 | NUR ---
LEVOPHED DRIP TITRATED DOWN TO 1.6 MCG/MIN.
[2022-09-04] MEDS: BLOOD GLUCOSE MONITORING 1 DEV DEV FS SCH ×4 (05:42→23:44)
[2022-09-04] MEDS: INSULIN LISPRO SLIDING SCALE 100 UNITS/ML VIAL SUBQ PRN ×3 (05:44→23:51)
[2022-09-04 05:47] LABS: ALBUMIN 1.5 g/dL (3.4-5.0); ANION GAP 13.2 (8-16); ASPARTATE AMINOTRANSFERASE 18 U/L (15-37); CHLORIDE 99 mmol/L (98-107); CREATININE 3.4 mg/dL (0.6-1.3); GLUCOSE 188 mg/dL (74-106); MAGNESIUM 2.3 mg/dL (1.8-2.4); PHOSPHORUS 4.5 mg/dL (2.5-4.9); POTASSIUM 4.2 mmol/L (3.5-5.1); SODIUM SERUM 135 mmol/L (136-145); TOTAL BILIRUBIN 0.8 mg/dL (0.0-1.0); UREA NITROGEN, BLOOD 21 mg/dL (7-18)
[2022-09-04] MEDS: METOCLOPRAMIDE 10 MG/2 ML INJ VIAL IVP SCH ×3 (06:14→23:29)
[2022-09-04] MEDS: LEVOTHYROXINE 0.1 MG TAB PO SCH (06:14)
--- NOTE | 2022-09-04 07:20 | NUR ---
REPORT GIVEN TO [facility] NURSEVANESSA RN FOR CONTINUITY OF CARE. ALL QUESTIONS ANSWERED. PT IS STABLE AND LEVOPHED DRIP AT 1.5 MCG/MIN. V/S STABLE. STILL ON TRACHE TO VENT WITH SAME SETTINGS.
--- NOTE | 2022-09-04 07:50 | NUR ---
Report received from security shift manager nurse Jared Coy RN. Pt able to track with eyes, unable verbalize needs or wants patient able to respond to physical stimulation. Patient is edematous on the upper extremities. Vent: A/C PRVC FIO2 24%, VT 350, RR 16, PEEP 5. Right upper arm PICC line with dressing dry and intact infusing TPN 60 ml/hr, Levophed 1.5 mcg/min, and Normal Saline TKO at 5 ml/hr. Lungs sounds are present when auscultating. Abdominal is firm with abdominal wound oozing serous drainage, no foul smell, or purulent drainage noted. NGT to left nare on low intermittent suctioning with light brown fluid noted. Sacral wound. Bilateral foam protectors lateral lower shins. Heel protectors in place. Addendum: 09/04/22 at 0840 by RUPINDER BRITO RN Johnnie Catheter on left neck, dressing is dry and intact.
--- NOTE | 2022-09-04 08:09 | NUR ---
Requested a wound care evaluation due to patient abdominal wound oozing serous drainage.
--- NOTE | 2022-09-04 08:27 | NUR ---
Dr. Gillis rounded at patients bedside. Stated to MD that patient has been having serous drainage from her wound. Dr. Gillis looked at doctors old notes of suspected ascites. Per MD "get an ultrasound of her belly for fluid if fluid is present call IR to do paracentesis." Will continue to follow plan of care.
--- NOTE | 2022-09-04 08:33 | NUR ---
Reached out to Dr. Corral regarding patients low Albumin level of 1.5 (3.4-5) when asked for recommendations per MD "I'll put it in." Will continue follow plan of care.
[2022-09-04] MEDS: MICAFUNGIN SODIUM 100 MG in NACL 0.9% 100 ML IV SCH (09:25)
[2022-09-04] MEDS: MIDODRINE 5 MG TAB PO SCH ×3 (09:26→17:41)
[2022-09-04] MEDS: PANTOPRAZOLE 40 MG INJ VIAL IVP SCH (09:26)
[2022-09-04] MEDS: NYSTATIN CRE 100 MU/GM 15 GM TUBE TP SCH ×2 (09:37→20:29)
[2022-09-04] MEDS ORDERED: ALBUMIN HUMAN 25% 50 ML IV SCH (10:03)
--- NOTE | 2022-09-04 10:03 | NUR ---
status update: Regarding patients low albumin level Dr. Corral ordered Albumin 25% 50 mls at 50ml/hr. Will continue to follow plan of care.
--- NOTE | 2022-09-04 10:25 | NUR ---
WOUND CARE RE-EVALUATION NOTE: MID ABDOMINAL WOUND OLD GT SITE SMALL AMOUNT SEROUS DRAINAGE, NO ODOR, PER PRIMARY RN RUPINDER PENDING ULTRASOUND POSSIBLE ACITES. KWAKU-STOMA SLOUGH TISSUE RESPOND TO THERAHONEY GEL, AREA, SOFT, MOIST AND PEELING. POC DISCUSSED OOZING DRAINGE POSSIBLE FROM LIQUEFIED SLOUGH TISSUE, WILL ADD ALGINATE TO GT SITE PRN, CONTINUE THERAHONEY GEL TO SLOUGH TISSUE AND NYSTATIN CR TO MASD.
--- NOTE | 2022-09-04 10:30 | NUR ---
Rachel from Radiology came to do ultrasound at bedside. Patient VSS. will continue to follow plan of care.
--- NOTE | 2022-09-04 10:45 | NUR ---
Amna RICE from wound care came to follow up on the wound consultation. Per wound care nurse she was going to put the orders for new dressings.
--- NOTE | 2022-09-04 11:07 | NUR ---
Dr. Corral rounded at patients bedside. Per MD wants patient to start on NGT feedings, gave order to have an FNS consultation first.
--- NOTE | 2022-09-04 11:09 | NUR ---
Reached out to Dr. Mckeon regarding patient needing to get dialyzed. Last time patient got dialyzed was 09/01/2022. Will continue to follow plan of care.
--- NOTE | 2022-09-04 11:21 | NUR ---
MD Called ICU cellphone ordered chest x-ray per MD "call me when the dialysis nurse gets there so I can give her verbal consent." Will continue to follow plan of care.
--- NOTE | 2022-09-04 11:50 | NUR ---
Called Dialysis nurse Qi with patient needing to get dialyzed relayed to dialysis nurse that MD Mckeon will wait for her to arrive so he can give her verbal consent.
--- NOTE | 2022-09-04 12:09 | NUR ---
Lilliana STEELE gave me patients recommendations of 40 ml/hr as goal. Start patient on 20 ml/hr every 4 hours with free water flush of 200 mls every 6 hours plus Olegario BID or per MD recommendations. Will reach out to MD Corral to verify if she's ok with recommendations.
[2022-09-04 12:28] LABS: ANION GAP 12.3 (8-16); CARBON DIOXIDE 28.4 mmol/L (21-32); CHLORIDE 100 mmol/L (98-107); CREATININE 3.5 mg/dL (0.6-1.3); GLUCOSE 170 mg/dL (74-106); POTASSIUM 4.7 mmol/L (3.5-5.1); SODIUM SERUM 136 mmol/L (136-145); UREA NITROGEN, BLOOD 24 mg/dL (7-18)
[2022-09-04 12:29] LABS: PROTHROMBIN TIME 12.7 secs (10.8-13.4)
--- NOTE | 2022-09-04 12:32 | NUR ---
MD Gillis called back, Abdirashid RICE received call. Per MD instructions "start paracentesis if there is a large amount of fluid." Will continue to follow plan of care.
[2022-09-04] MEDS ORDERED: ALGINATE ROPE MC PRN (12:35)
--- NOTE | 2022-09-04 12:45 | NUR ---
Status update: Reached out to MD Corral regarding Lilliana STEELE's recommendations. is ok with recommendations.
--- NOTE | 2022-09-04 12:53 | NUR ---
Dr. Gillis aware that patient has small amount of fluids in the abdominal cavity, per MD no paracentesis will be needed.
[2022-09-04 13:09] LABS: BASOPHILS % (AUTO) 0.4 % (0.0-2.0); EOSINOPHILS # (AUTO) 0.2 K/uL (0-0.4); EOSINOPHILS % (AUTO) 2.1 % (0.0-4.0); HEMATOCRIT 24.4 % (36-48); HEMOGLOBIN 7.9 g/dL (12.0-16.0); LYMPHOCYTES # (AUTO) 2.9 K/uL (2.5-16.5); LYMPHOCYTES % (AUTO) 28.1 % (20.5-51.1); MEAN CORPUSCULAR HEMOGLOBIN 32 pg (27-31); MEAN CORPUSCULAR HGB CONC 32 g/dL (33-37); MEAN CORPUSCULAR VOLUME 97.5 fL (80-94); MONOCYTES # (AUTO) 1.2 K/uL (0.8-1.0); MONOCYTES % (AUTO) 11.4 % (1.7-9.3); PLATELET COUNT (AUTO) 167 K/uL (140-450); RED BLOOD CELL COUNT(AUTO) 2.51 MIL/uL (4.20-5.40); RED CELL DISTRIBUTION WIDTH 21.9 % (11.6-13.7)
[2022-09-04 13:24] LABS: WHITE BLOOD COUNT (AUTO) 10.4 K/uL (4.8-10.8)
[2022-09-04] MEDS: ALGINATE ROPE MC SCH (13:27)
[2022-09-04] MEDS: GAUZE TP SCH (13:27)
[2022-09-04] MEDS: THERAHONEY GEL 42.5 GM TP SCH (13:27)
--- NOTE | 2022-09-04 13:40 | NUR ---
Dr. Mckeon came and assessed patient at bedside. No new orders received.
--- NOTE | 2022-09-04 14:20 | NUR ---
Dialysis nurse KRYSTAL Busby received order from Dr. Mckeon, wants patient to get dialyzed 09/04/22, 09/05/22, 09/06/22. Will continue to follow plan of care.
--- NOTE | 2022-09-04 14:26 | NUR ---
Dialysis nurse KRYSTAL Busby started dialysis on patient. Patients VSS stable.
--- NOTE | 2022-09-04 14:45 | NUR ---
Reached out to MD Corral regarding patients Calcium levels of 1.5. MD asked if patients Albumin was. No labs with new Albumin levels, asked MD if she would like for me to get new albumin levels per MD "Oh. No. The corrected calcium is ok." Will continue to follow plan of care.
[2022-09-04] MEDS ORDERED: ALBUMIN HUMAN 25% 100 ML IV SCH (14:55)
--- NOTE | 2022-09-04 14:55 | NUR ---
PER RN WANTED A TUBE FEEDING RECOMMENDATION FOR PATIENT. RD RECOMMENDED NEPRO WITH GOAL RATE OF 40ML/HR. START AT 20ML/HR AND INCREASE 20ML Q4H OR TOLERATED. RD RECOMMENDED FWF 200 Q6H BUT DUE TO RENAL ISSUES RD LET RN KNOW FWF CAN BE DETERMINED OR UP TO MD. RD ALSO RECEIVED FNS CONSULT FOR NAUSEA >3 DAYS PRIOR TO ADMISSION. RD WILL FOLLOW UP WITH PATIENT A HIGH RISK TOMORROW 09/05/22. PATIENT WAS SEEN YESTERDAY BY IVETTE. FRANK MAGDALENO RD
--- NOTE | 2022-09-04 17:25 | NUR ---
status update: Dialysis nurse KRYSTAL Busby finished dialysis. Removed 2L from patient. Patient tolerated Dialysis. VSS.
--- NOTE | 2022-09-04 19:15 | NUR ---
Feeding tube Nepro and water set-up. Unable to start NGT feeding due to being unable to reset the machine. Stated to mini shifter nurse Latoya and KRYSTAL Nj that I was unable to start the feedings due to feeding pump issues.
--- NOTE | 2022-09-04 19:15 | NUR ---
Endorsed report to assistant shift supervisor nurses Latoya and Jahaira RNs for continuity of care.
[2022-09-04] MEDS: LEVOFLOXACIN 500 MG/D5W PREMIX 100 ML IV SCH (19:22)
--- NOTE | 2022-09-04 19:30 | NUR ---
ASSUMED PT CARE. PT IS AWAKE, OPENS EYES, TRACKS BUT UNABLE TO FOLLOW COMMANDS. SR ON MONITOR. GENERALIZED EDEMA NOTED. ON TRACH TO VENT A/C PRVC FI02 24, VT 350, R 16, PEEP 5. NGT TO LT NARES, PLACEMENT CHECKED AND VERIFIED W/ KRYSTAL GARNER W/ SHAWANDA FEEDING 20 ML/HR WITH 200 ML FWF. LOWELL PICC LINE DRY AND INTACT GOOD BLOOD RETURN TO BOTH PORTS, INFUSING LEVOPHED DRIP 1.5 MCG/MIN, NS AT KVO AND TPN AT 60 ML/HR. WITH LT IJ DANIAL CATH DRY AND INTACT DRESSING. ABDOMEN FIRM AND WITH WOUND TO PREVIOUS GTUBE SITE. DRESSINGS CHANGED. MULTIPLE WOUNDS STILL NOTED WITH INTACT DRESSINGS (SEE WOUND CARE ASSESSMENT). FLACC 0. NOT IN DISTRESS. SAFETY PRECAUTIONS MAINTAINED. CALL LIGHT WITHIN REACH. WILL CONTINUE TO CLOSELY MONITOR THE PATIENT.
[2022-09-04] MEDS: INSULIN REGULAR IV SCH ×5 (20:28)
[2022-09-04] MEDS: HUMAN IV SCH ×5 (20:28)
[2022-09-04] MEDS: [UNRECOGNIZED DRUG - OTHER] IV SCH ×5 (20:28)
[2022-09-04] MEDS: DEXTROSE 50% IV SCH ×5 (20:28)
[2022-09-04] MEDS: MULTIVITAMIN IV SCH ×5 (20:28)
--- NOTE | 2022-09-04 20:47 | NUR ---
RECEIVED PT ON CARESCAPE VENTILATOR 1353 IN PRVC MODE. VENT PLUGGED INTO RED OUTLET, AMBU BAG AT BED SIDE, PT AWAKE AND NO RESPIRATORY DISTRESS NOTED. PT GIVEN HHN TREATMENT WITH NO ADVERSE REACTION. BREATH SOUNDS ARE CLEAR AND O2 SATURATION IS 100%. CALL LIGHT IS ON BED BY PATIENT. WILL CONTINUE TO MONITOR PATIENT.
--- NOTE | 2022-09-04 22:15 | NUR ---
PT IS ASLEEP. NOT IN DISTRESS. KEPT COMFORTABLE. REPOSITIONED. FLACC 0.
--- NOTE | 2022-09-04 23:52 | NUR ---
PT AWAKE AND WATCHING TV. AFEBRILE. CHECKED NGT RESIDUAL = 35ML. NGT FEEDING INCREASED TO 30ML/HR. ACCUCHECK DONE. REPOSITIONED PT.
[2022-09-05] VITALS (35 sets, daily range): BP systolic 84–149; BP diastolic 37–93; PULSE 31–97; RESP 14–34; TEMP 96.2–98.6; O2SAT 96–100
[2022-09-05] MEDS: Z-GUARD PASTE TP SCH ×2 (01:00→11:16)
--- NOTE | 2022-09-05 01:00 | NUR ---
SR ON CONVERSION WORKER. ORAL CARE PROVIDED. KEPT COMFORTABLE.
[2022-09-05] MEDS: ALBUTEROL SULFATE/IPRATROPIU 3 ML SOL IH SCH ×4 (01:31→19:23)
--- NOTE | 2022-09-05 04:40 | NUR ---
AM CARE AND ORAL CARE DONE. PT STILL ON NG TUBE FEEDING AT 30ML/HR, RESIDUALS CHECKED 50ML NOTED, ALSO NOTED FEEDING COMING OUT OF THE GTUBE SITE MODERATE AMT. FEEDING DECREASED BACK TO 20ML/HR. PT STILL ON TPN AT 60ML/HR, WILL REPORT TO MD/RN IN AM. REPOSITIONED. DRESSINGS APPLIED. NO PAIN NOTED.
[2022-09-05 05:12] LABS: BASOPHILS % (AUTO) 0.4 % (0.0-2.0); EOSINOPHILS # (AUTO) 0.3 K/uL (0-0.4); EOSINOPHILS % (AUTO) 3.1 % (0.0-4.0); HEMATOCRIT 24.6 % (36-48); HEMOGLOBIN 7.9 g/dL (12.0-16.0); LYMPHOCYTES # (AUTO) 2.8 K/uL (2.5-16.5); LYMPHOCYTES % (AUTO) 28.7 % (20.5-51.1); MEAN CORPUSCULAR HEMOGLOBIN 32 pg (27-31); MEAN CORPUSCULAR HGB CONC 32 g/dL (33-37); MEAN CORPUSCULAR VOLUME 98.9 fL (80-94); MONOCYTES # (AUTO) 1.2 K/uL (0.8-1.0); MONOCYTES % (AUTO) 12.5 % (1.7-9.3); NEUTROPHILS # (AUTO) 5.3 K/uL (1.8-7.7); NEUTROPHILS % (AUTO) 55.3 % (42.2-75.2); PLATELET COUNT (AUTO) 100 K/uL (140-450); RED BLOOD CELL COUNT(AUTO) 2.49 MIL/uL (4.20-5.40); RED CELL DISTRIBUTION WIDTH 21.5 % (11.6-13.7); WHITE BLOOD COUNT (AUTO) 9.7 K/uL (4.8-10.8)
--- NOTE | 2022-09-05 05:30 | NUR ---
COMPLETED LAST VENTILATOR CHECK. REPLACED HME, CLEANED AREA AROUND STOMA. NO SIGNS OF INFECTION OR SKIN BREAKDOWN. NEW SPLIT PADS PLACED AROUND STOMA. THROUGHOUT NIGHT SUCTIONED PATIENT 3 TIMES. FIRST TWO PRODUCED LARGE AMT OF THICK WHITE SECRETIONS. LAST SUCTIONING PRODUCED SMALL AMOUNT OF WHITE/BLOOD TINGED SECRETIONS. PT EYES WERE OPEN AND TRACKING BUT DID NOT RESPOND TO QUESTIONS OR COMMANDS. LEFT PT RESTING WITH NO DISTRESS NOTED.
[2022-09-05 05:48] LABS: ALBUMIN 1.4 g/dL (3.4-5.0); ANION GAP 8.6 (8-16); ASPARTATE AMINOTRANSFERASE 22 U/L (15-37); CARBON DIOXIDE 30.2 mmol/L (21-32); CHLORIDE 100 mmol/L (98-107); CREATININE 2.7 mg/dL (0.6-1.3); GLUCOSE 195 mg/dL (74-106); PHOSPHORUS 3.2 mg/dL (2.5-4.9); POTASSIUM 3.8 mmol/L (3.5-5.1); SODIUM SERUM 135 mmol/L (136-145); TOTAL BILIRUBIN 0.8 mg/dL (0.0-1.0); UREA NITROGEN, BLOOD 16 mg/dL (7-18)
[2022-09-05] MEDS: BLOOD GLUCOSE MONITORING 1 DEV DEV FS SCH ×4 (06:29→23:46)
[2022-09-05] MEDS: INSULIN LISPRO SLIDING SCALE 100 UNITS/ML VIAL SUBQ PRN ×4 (06:29→23:53)
[2022-09-05] MEDS: LEVOTHYROXINE 0.1 MG TAB PO SCH (06:31)
[2022-09-05] MEDS: METOCLOPRAMIDE 10 MG/2 ML INJ VIAL IVP SCH ×3 (06:31→23:30)
--- NOTE | 2022-09-05 07:16 | NUR ---
ENDORSED PT TO DAYSHIFT NURSE KINDRA RICE. STILL ON TPN. REPORT UNABLE TO INCREASE NGT FEEDING DUE TO PREVIOUS GT SITE LEAKING.
--- NOTE | 2022-09-05 07:34 | NUR ---
RECEIVED REPORT FROM KENNETH RICEINCOME TAX ADVISORPIANO MACHINE OPERATOR PT ADMIT FOR HYPOXIA V/S 96.3 90HR, 99% O2 SAT 146/80 BP. PT ABLE TO OPEN EYES + PERRL. PT HAS NO SOB ON TRACHE TO VENT AC/PRVC SETTING FIO2 28% TV 350 RR 16 PEEP 5 PT IS SR ON THE HEART MONITOR. PT HAS LEFT NARES NGT WITH NEPHRO TUBE FEED 20 ML/HR FWF 200 Q6 HR PER REPORT PT HAS LARGE LEAKING AT THE GT SITE UNABLE TO INCREMENTS FEEDING, ASSESS THE GT PLACEMENT 50 ML RESIDUAL AND + GURGLING SOUND AUSCULTATION. PT HAS FIRM AND DISTENDED ABDOMEN. AND PT HAS TPN 60ML/HR PT HAS NICOLE BARROW FOR HD ACCESS. PT HAS TUA PICC LINE PT HAS MULTIPLE SKIN PROBLEM WOUND CARE TREATMENT ORDERED. PT CALL LIGHT WITHIN REACH, BED IS LOCKED AND IN LOW POSITION KEEP COMFORTABLE WILL CONTINUE TO MONITOR.
--- NOTE | 2022-09-05 08:00 | NUR ---
DR. PEGUERO CAME IN AND ASSESS PT DID CHART REVIEW MADE AWARE OF PT STILL ON LEVOPHED 1.5 MCG RECEIVED HOLD BY LUMBER BEARER STARTED BACK DUE TO PT BP 79/50 AT 0730, AND MADE AWARE OF GT FEEDING HAS LEAKING AT THE GT SITE UNABLE TO INCREMENT BY LUMBER BEARER AND FWF OF 200Q6 WIT OKAY TO DECREASE 50ML Q6H AND ORDER TO CALL DR. WILSON FOR THE LEAKING GT SITE.
--- NOTE | 2022-09-05 08:16 | NUR ---
Per Dr. Gillis - micropaleontologist - Dr. Liliana PARIKH MD on case contacted for further consultation due to G-tube site (no G-tube present now and for a some time due to infection). Sent message to Dr. Ford via text. Pt. with no acute distress. NG tube to left nare in place with tube feeding infusing at 20 cc/hr. Will cont. to monitor.
[2022-09-05] MEDS: PANTOPRAZOLE 40 MG INJ VIAL IVP SCH (08:23)
[2022-09-05] MEDS: MICAFUNGIN SODIUM 100 MG in NACL 0.9% 100 ML IV SCH (08:23)
[2022-09-05] MEDS: MIDODRINE 5 MG TAB PO SCH ×3 (08:24→17:51)
[2022-09-05] MEDS: NYSTATIN CRE 100 MU/GM 15 GM TUBE TP SCH ×2 (08:54→20:06)
--- NOTE | 2022-09-05 09:00 | NUR ---
REPOSITIONED PATIENT TO RIGHT SIDE AT THIS TIME PT HAS NO BM NOTED PATIENT SACRAL DRESSING INTACT AND NOT SOILED CHECK SKIN ASSESS PURPLE MAROON IN COLOR WOUND CARE NOTED UNSTAGEABLE NO BROKEN SKIN., CALL LIGHT WITHIN REACH SAFTEY PRECAUTION APPLIED. Addendum: 09/05/22 at 1033 by KINDRA DANIELS RN ORAL CARE DONE AT THIS TIME TOLERATED WELL. CLEAR FROTHY SPUTUM IN SUCTION NOTED NO SOB NOTED.
[2022-09-05] MEDS: EPOETIN ALFA 10,000 UNITS/ML VIAL SUBQ SCH (09:14)
--- NOTE | 2022-09-05 09:20 | NUR ---
DR. PALUMBO CALLED AND GET PT UDPATE FOR TODAY MADE AWARE OF PT STILL ON LEVOPHED DRIP 1 MCG EVEN PT HAS MIDODRINE 10 MG 2 TAB GT . STILL HAS EPISODE OF MAP<65 PT ALSO HAS A GT LEAKING WHILE ON GT FEEDING OF NEPHRO AT 20 ML/H AND FWF AT 200 Q6H OKAY TO STOP AND TO CALL DR. WILSON MADE AWARE THAT WE CALL DR. WILSON AWAITING CALL BACK. Addendum: 09/05/22 at 0953 by KINDRA DANIELS RN ERROR ENTRY CORRECTION FOR LEVOPHED DRIP 1.5 MCG
--- NOTE | 2022-09-05 10:55 | NUR ---
DR. WILSON WAS CALLED AND MADE AWARE OF PT STILL HAS LEAKING AROUND THE GT SITE WILL SEE PT TODAY NO ORDER GIVEN TO NURSING AT THIS TIME.
--- NOTE | 2022-09-05 10:57 | NUR ---
Dr. Liliana PARIKH MD, called on his cell phone [phone]. Explained situation over the phone how pt.'s GI tube hole is leaking tube feeding. acknowledge consult and will come to ICU to see pt. soon. Pt.'s primary RN notified.
[2022-09-05] MEDS: THERAHONEY GEL 42.5 GM TP SCH (11:17)
[2022-09-05] MEDS: GAUZE TP SCH (11:19)
[2022-09-05] MEDS: ALGINATE ROPE MC SCH (11:19)
--- NOTE | 2022-09-05 12:01 | NUR ---
Dr. Liliana PARIKH MD called and ordered N-G tube to be placed on low intermittent suction. Tube feeding stopped and on hold. Pt. with no acute distress. NO SOB. Pt.'s primary RN notified and task completed.
--- NOTE | 2022-09-05 12:07 | NUR ---
DR. LEMA CAME IN AND ASSESS PT GET UPDATE DID CHART REVIEW ASK IF PT HAS HD TODAY REPORTED PT HAS SCHEDULE FOR TODAY AND ALSO TOMORROW PER PLAN DR. GALVEZ FOR 3 DAYS PT HAS HD YESTERDAY. NO NEW ORDER GIVEN TO NURSING AT THIS TIME.
--- NOTE | 2022-09-05 12:09 | NUR ---
PT NGT CONNECTED TO LOW INTERMITTENT SUCTION. ABDOMINAL WOUND CARE TREATMENT DONE PER ORDER WITH MODERATE YELLOW DRAINAGE SNOTED AND PINK TO REDDISH COLOR AROUND GT STOMA AND SCABBING ALSO NOTED WOUND DIFFERENT STAGES. DRESSING APPLIED. Addendum: 09/05/22 at 1354 by KINDRA DANIELS RN NGT CONNECTED TO LOW INTERMITTENT SUCTION ORDER BY DR. KATIE SAHNI BY PROOF PASSER ROB
--- NOTE | 2022-09-05 13:49 | NUR ---
09/05/22 RD FOLLOW UP COMPLETED PLEASE REFER TO NUTRITION ASSESSMENT UNDER CARE ACTIVITY FOR ESTIMATED NUTRITIONAL NEEDS. 1. CONTINUE CURRENT TPN RATE PER RECOMMENDATION OF THE PHARMACY. 2. RD WILL CONTINUE TO MONITOR TPN RATE, NUTRITION RELATED LAB VALUES, GI ISSUES AND WEIGHT. 3. RD TO FOLLOW-UP 2-3 DAYS, HIGH RISK [address]ANK [address]
--- NOTE | 2022-09-05 14:17 | NUR ---
DR. VASQUEZ CAME IN AND ASSESS PT AND DID CHART REVIEW GET UPDATES MADE AWARE OF PT UNABLE TO WEAN OFF ON LEVOPHED HAS STILL EPISODE OF MAP<65 WHEN HOLD WHEN MAP OF BP REACHED >100. Addendum: 09/05/22 at 1421 by KINDRA DANIELS RN NO ORDER GIVEN AT THIS TIME.
--- NOTE | 2022-09-05 16:01 | NUR ---
START OF HD PT BP 84/48 STARTED AGAIN THE LEVOPHED DRIP FOR BP SUPPORT HD NURSE CALLED DR. LEMA ORDER TO HD NURSE TO CONTINUE HD IF BLOOD PRESSURE IS 90 OR ABOVE MADE PRIMARY NURSE AWARE TITRATE LEVOPHED TO MAINTAIN SBP>90 CHARGE NURSE NICOLETTE AWARE
--- NOTE | 2022-09-05 16:14 | NUR ---
Dialysis process for today started. Dr. Corral contacted and she order pt. to receive 1 unit of PRBC today for BP support and volume expansion. Orders entered. Pt.'s primary RN notified. Consent for blood transfusion located in chart from 09-02-2022, 0925 am. Please see physical chart for specific details.
--- NOTE | 2022-09-05 16:21 | NUR ---
Contacted Dr. Liliana PARIKH MD - He states that he will come tomorrow 09-06-22 in AM to evaluate G-Tube leak. Dr. Corral notified. Pt.'s primary RN notified.
--- NOTE | 2022-09-05 16:25 | NUR ---
DR. PALUMBO AND TOREY ESCAMILLA CALLED TO MADE AWARE OF hd NURSE REC FOR HD ALBUMIN 25% 100 ML BOTH OKAY TO GIVE MEDS WHILE HD FOR BP SUPPORT. AND DR. PALUMBO ORDERED FOR 1 UNIT OF PRBC QUARRY SUPERVISOR ROB PUT ORDER FOR TYPE AND CROSS AND 1 UNIT PRBC ORDER.
[2022-09-05] MEDS ORDERED: ALBUMIN HUMAN 25% 100 ML IV SCH (16:30)
--- NOTE | 2022-09-05 18:00 | NUR ---
DR. VALERA CAME IN AND ASSESS PT CHART AND LAB REVIEW DONE.GET UPDATE PT HAS A LEAKAGE FROM THE GT STOMA SITE. NO NEW ORDER GIVEN.
--- NOTE | 2022-09-05 19:14 | NUR ---
ENDORSE PT TO CESARIO DIEHL DONE FOR CONTINUITY OF CARE ALL QUESTIONS ANSWERED. Addendum: 09/06/22 at 0942 by KINDRA DANIELS RN LATE ENTRY: HD IS ALSO DONE AT THIS TIME WITH 2 L OUTPUT PER HD NURSE. NO CRITICAL CHANGE WHILE DOING HD.
--- NOTE | 2022-09-05 19:26 | NUR ---
RECEIVED PT ASLEEP SR ON MONITOR. ANASARCA NOTED. TRACH TO VENT A/C PRVC FI02 28, VT 350, R 16, PEEP 5. NGT TO LT NARES CONNECTED TO LIS, SMALL AMT OF CREAMY GASTRIC OUTPUT NOTED. LOWELL PICC LINE INTACTW/ GOOD BLOOD RETURN TO BOTH PORTS, INFUSING LEVOPHED DRIP 2 MCG/MIN, NS AT KVO AND TPN AT 60 ML/HR. WITH LT IJ DANIAL CATH DRY AND INTACT DRESSING. ABDOMEN FIRM AND WITH WOUND TO PREVIOUS GTUBE SITE. MULTIPLE WOUNDS STILL NOTED WITH INTACT DRESSINGS (SEE WOUND CARE ASSESSMENT). FLACC 0. NOT IN DISTRESS. SAFETY PRECAUTIONS MAINTAINED. CALL LIGHT WITHIN REACH. WILL CONTINUE TO CLOSELY MONITOR THE PATIENT. PT JUST COMPLETED HD.
--- NOTE | 2022-09-05 19:30 | NUR ---
PT FOR PRBC TRANSFUSION 1 UNIT ORDERED.WENT TO LAB TO GET THE BLOOD, PT WITH CONSENT FOR BT.PER RIYA JAMES ON BREAK,SHE WILL CALL ICU WHEN RIYA COMES BACK FROM BREAK.
[2022-09-05] MEDS: MULTIVITAMIN IV SCH ×9 (20:00→20:03)
[2022-09-05] MEDS: DEXTROSE 50% IV SCH ×5 (20:00)
[2022-09-05] MEDS: INSULIN REGULAR IV SCH ×5 (20:00)
[2022-09-05] MEDS: HUMAN IV SCH ×5 (20:00)
[2022-09-05] MEDS: [UNRECOGNIZED DRUG - OTHER] IV SCH ×5 (20:00)
[2022-09-05] MEDS: AMINO ACIDS IV SCH ×4 (20:03)
[2022-09-05] MEDS: DEXTROSE IV SCH ×4 (20:03)
[2022-09-05] MEDS: [UNRECOGNIZED DRUG - OTHER] IV SCH ×4 (20:03)
--- NOTE | 2022-09-05 20:39 | NUR ---
went to lab to get blood again, Lamar from lab said pedro luis not back yet and she cannot give us the blood, awaiting call from reno when pedro luis gets there
--- NOTE | 2022-09-05 21:16 | NUR ---
BLOOD TRANSFUSION STARTED. RECORD OF TRANSFUSION VERIFIED AT THE BEDSIDE BY ME AND RN HILL Thomas FOR CLOSE MONITORING.
--- NOTE | 2022-09-05 22:15 | NUR ---
v/s wnl at this time, levophed on hold.will continue to closely monitor pt
--- NOTE | 2022-09-05 22:17 | NUR ---
PT ASLEEP. BT STILL ONGOING. NO UNTOWARD S/SX NOTED. WILL CONTINUE TO MONITOR
[2022-09-06] VITALS (34 sets, daily range): BP systolic 89–133; BP diastolic 45–84; PULSE 67–85; RESP 13–26; TEMP 96–97.6; O2SAT 97–100
--- NOTE | 2022-09-06 00:20 | NUR ---
BLOOD TRANSFUSION DONE. NO SIGNS OF ALLERGIC REACTION. ORAL CARE PROVIDED. REPOSITIONED. V/S WNL. WILL CONTINUE TO MONITOR PT.
[2022-09-06] MEDS: Z-GUARD PASTE TP SCH ×2 (01:00→12:27)
[2022-09-06] MEDS: ALBUTEROL SULFATE/IPRATROPIU 3 ML SOL IH SCH ×4 (01:23→19:24)
--- NOTE | 2022-09-06 02:00 | NUR ---
PT IS ASLEEP. V/S WNL. LEVOPHED IS STILL ON HOLD AT THIS TIME.
--- NOTE | 2022-09-06 04:00 | NUR ---
DRAW BLOOD SAMPLE IN PICC LINE FOR LABS. PROVIDED ORAL CARE. PT STILL ON HOLD FOR LEVOPHED. NOT IN DISTRESS. V/S WN. SAFETY PRECAUTIONS MAINTAINED.
--- NOTE | 2022-09-06 05:10 | NUR ---
PT IS AWAKE. PROVIDED AM CARE WITH NURSE GARNER AND NURSE DICKENS. CHANGED WOUND DRESSINGS. CHANGED BEDSHEET, PILLOWCASES, AND BLANKET. REPOSITIONED PT. KEPT COMFORTABLE. SIDE RAILS UP. PT IN LOW BED POSITION. CALL LIGHT WITHIN REACH.
[2022-09-06] MEDS: LEVOTHYROXINE 0.1 MG TAB PO SCH (05:45)
[2022-09-06] MEDS: BLOOD GLUCOSE MONITORING 1 DEV DEV FS SCH ×4 (05:45→23:50)
[2022-09-06 06:00] LABS: BASOPHILS % (AUTO) 0.5 % (0.0-2.0); EOSINOPHILS # (AUTO) 0.5 K/uL (0-0.4); EOSINOPHILS % (AUTO) 5.3 % (0.0-4.0); HEMATOCRIT 26.3 % (36-48); HEMOGLOBIN 8.5 g/dL (12.0-16.0); LYMPHOCYTES # (AUTO) 2.3 K/uL (2.5-16.5); LYMPHOCYTES % (AUTO) 25.9 % (20.5-51.1); MEAN CORPUSCULAR HEMOGLOBIN 32 pg (27-31); MEAN CORPUSCULAR HGB CONC 33 g/dL (33-37); MEAN CORPUSCULAR VOLUME 97.8 fL (80-94); MONOCYTES # (AUTO) 1.1 K/uL (0.8-1.0); MONOCYTES % (AUTO) 11.8 % (1.7-9.3); NEUTROPHILS % (AUTO) 56.5 % (42.2-75.2); PLATELET COUNT (AUTO) 76 K/uL (140-450); RED BLOOD CELL COUNT(AUTO) 2.68 MIL/uL (4.20-5.40); WHITE BLOOD COUNT (AUTO) 8.9 K/uL (4.8-10.8)
[2022-09-06] MEDS: INSULIN LISPRO SLIDING SCALE 100 UNITS/ML VIAL SUBQ PRN ×3 (06:03→18:51)
[2022-09-06] MEDS: METOCLOPRAMIDE 10 MG/2 ML INJ VIAL IVP SCH ×3 (06:04→22:28)
--- NOTE | 2022-09-06 07:07 | NUR ---
RECEIVED ON A ZOZISCAPE R860 VENTILATOR PLUGGED INTO RED OUTLET TOLERATING WELL WITHOUT ADVERSE REACTIONS NOTED TO A PORTEX DCT #8 AIRWAY SECURED WITH TONE TRACH CUFF PRESSURE CHECKED NOTED AMBU BAG AT BEDSIDE RESTING COMFORTABLY NO DISTRESS NOTED OSMAN TRACHEAL SUCTION FOR SMALL THIN YELLOW SECRETIONS AIRWAY PATENT
[2022-09-06 07:10] LABS: ALBUMIN 1.6 g/dL (3.4-5.0); ANION GAP 12.4 (8-16); ASPARTATE AMINOTRANSFERASE 15 U/L (15-37); CARBON DIOXIDE 28.8 mmol/L (21-32); CHLORIDE 99 mmol/L (98-107); GLUCOSE 163 mg/dL (74-106); PHOSPHORUS 3.7 mg/dL (2.5-4.9); POTASSIUM 4.2 mmol/L (3.5-5.1); SODIUM SERUM 136 mmol/L (136-145); TOTAL BILIRUBIN 0.9 mg/dL (0.0-1.0); UREA NITROGEN, BLOOD 23 mg/dL (7-18)
--- NOTE | 2022-09-06 07:20 | NUR ---
ENDORSED PT TO DAYSHIFT NURSE KINDRA RICE. ALL QUESTIONS ANSWERED.
--- NOTE | 2022-09-06 07:30 | NUR ---
RECEIVED REPORT FROM KENNETH RICESOCIAL WORKER DELINQUENCY PREVENTIONREINFORCED IRONWORKER PT ADMIT FOR HYPOXIA V/S 96.7, 67 HR, 100% O2 SAT 146/80 BP. PT ABLE TO OPEN EYES + PERRL. PT HAS NO SOB ON TRACHE TO VENT AC/VC SETTING FIO2 28% TV 350 RR 16 PEEP 5 PT IS SR ON THE HEART MONITOR. PT HAS LEFT NARES NGT CONNECTED TO LOW INTERMITTENT SUCTION, WITH YELLOW DRAINAGE. PT HAS FIRM AND DISTENDED ABDOMEN. AND PT HAS TPN 60ML/HR PT HAS NICOLE BARROW FOR HD ACCESS. S/P HD DONE YESTERDAY 2L OUTPUT. PT HAS LOWELL PICC LINE, PT HAS MULTIPLE SKIN PROBLEM WOUND CARE TREATMENT ORDERED, DRESSING WAS CHANGE PER NIGHT NIHT SHIF, PT IS S/P 1 UNIT PRBC DONE LAST NIGHT. PT LEVOPHED IS OF AND BP MAP IS MAINTAINED>65 AT 10PM. PT CALL LIGHT WITHIN REACH, BED IS LOCKED AND IN LOW POSITION KEEP COMFORTABLE WILL CONTINUE TO MONITOR.
[2022-09-06] MEDS: MICAFUNGIN SODIUM 100 MG in NACL 0.9% 100 ML IV SCH (08:00)
[2022-09-06] MEDS: MIDODRINE 5 MG TAB PO SCH ×3 (08:01→17:01)
[2022-09-06] MEDS: PANTOPRAZOLE 40 MG INJ VIAL IVP SCH (08:01)
--- NOTE | 2022-09-06 09:00 | NUR ---
PT IS FULLY AWAKE, FLAT AFFECT 0 FLACC PT HAS NO SOB 98-100% O2 SAT RT AT BEDSIDE FOR ORAL CARE AND VENTILATOR MANAGEMENT.
[2022-09-06] MEDS: ALBUTEROL SULFATE/IPRATROPIU 3 ML SOL IH PRN (09:17)
--- NOTE | 2022-09-06 09:17 | NUR ---
NANNY/HOUSEHOLD MANAGER CALLED TO BEDSIDE POST PATIENT PHYSICAL HYGIENE AND REPOSITION PATIENT PRESENTING WITH INCREASED WOB AND PEAK PRESSURES AT [id number] CHANGED MODE TO PRVC DEEP TRACHEAL SUCTION FOR MODERATE THIN TO SEMI THICK YELLOW SECRETIONS HHN PRN THERAPY GIVEN AT THIS TIME
--- NOTE | 2022-09-06 10:55 | NUR ---
RESTING WELL EQUAL CHEST RISE NO EVIDENCE FOR PULMONARY DISTRESS AT THIS TIME AIRWAY PATENT
--- NOTE | 2022-09-06 11:55 | NUR ---
DR. FORD CAME IN AND PREPARED SUPPLY FOR PEG TUBE PLACEMENT WAS PROVIDED MD REINSERTED FR.20 PEG TIUBE IN THE OLD GTUBE SITE STOMA MD INFLATED THE BALLOON FOR STABILIZING AND ORDER A GASTROGRAFIN KUB FOR PEG TUBE PLACEMENT. PT TOLERATED THE INTERVENTION NO SOB FLACC IS 0. Addendum: 09/06/22 at 1310 by JEOVANY BRITO RN Dr. Ford order tube feeding orders. It will be started via the NG tube after X-ray verification is done. RN will monitor for radiologist reading for placement after gastrographic contrast X-Ray. G-tube dressing done according to policy and secured. TPN to be stopped after N_G tube feeding starts.
--- NOTE | 2022-09-06 12:16 | NUR ---
GASTROGRAFIN KUB WAS ORDERED BY MD PALACIOSCELLULAR EQUIPMENT INSTALLER CAME IN AND KUB DONE AWAITING RESULT.
[2022-09-06] MEDS: ALGINATE ROPE MC SCH (12:20)
--- NOTE | 2022-09-06 12:20 | NUR ---
DR. ST CAME IN AND ASSESS PATIENT MADE AWARE OF LABS TODAY GET UPDATE ON PT OFF ON LEVOPHED MAP>65 WAS MAINTAINED PT WILL HAVE A HD TODAY FOR DR. GALVEZ ORDER TO HD X 3 CONSECUTIVE DAYS PER MD WILL TALK TO HD NURSE IF HD WILL BE TODAY OR TOMORROW MD WILL PUT ORDERS IN .
[2022-09-06] MEDS: GAUZE TP SCH (12:25)
[2022-09-06] MEDS: THERAHONEY GEL 42.5 GM TP SCH (12:26)
--- NOTE | 2022-09-06 12:59 | NUR ---
DR. PEGUERO CAME IN AND ASSESS PT DID CHART REVIEW AND GET UPDATE NO NEW ORDER GIVEN TO NURSING AT THIS TIME.
--- NOTE | 2022-09-06 13:17 | NUR ---
RESTING COMFORTABLY GOOD CHEST RISE DEEP TRACHEAL SUCTION FOR MODERATE THIN YELLOW SECRETIONS AIRWAY PATENT
--- NOTE | 2022-09-06 14:00 | NUR ---
AROUND 1430 DR. VASQUEZ CAM EIN AND ASSESS PT DID CHART REVIEW NON NEW ORDER GIVEN.
--- NOTE | 2022-09-06 14:30 | NUR ---
NGT FEEDING STARTED NEPHRO AT 10MLNO RESIDUAL NOTED FWF 30ML Q6H.
--- NOTE | 2022-09-06 15:11 | NUR ---
STABLE NO DISTRESS NOTED GOOD CHEST RISE AIRWAY PATENT
--- NOTE | 2022-09-06 17:30 | NUR ---
RESTING WELL NO SOB NOTED GOOD CHEST RISE AIRWAY PATENT
--- NOTE | 2022-09-06 19:30 | NUR ---
ASSUMED CARE OF PT.INITIAL ASSESSMENT COMPLETED. ANASARCA NOTED.SR NOTED ON MONITOR.OPENS EYES SPONTANEOUSLY BUT NOT FOLLOWING COMMANDS.TRACH TO VENT AC PRVC FIO2 28 % TV 350 RATE 16 PEEP 5.W/HD CATH TO LT IJ W/PIGTAIL, DRY DRESSING NOTED.PICC LINE TO LOWELL INTACT W/GOOD BLOOD RETURN TO BOTH PORTS INFUSING NS AT KVO AND TPN AT 60ML/HR.W/NGT TO LT NARES IN PLACE, PLACEMENT VERIFIED, STARTED ON NGT FEEDING ORDERED, 50ML RESIDUALS NOTED.G TUBE ALSO IN PLACE,CLAMPED. W/MULTIPLE WOUNDS, DRESSINGS IN PLACE,SEE WOUND ASSESSMENT.FLACC 0.FALL AND CONTACT PRECAUTION IN PLACE.BED IN LOW POSITION.CALL LIGHT WITHIN REACH.WILL CONTINUE TO CLOSELY MONITOR PT.
--- NOTE | 2022-09-06 19:34 | NUR ---
1630 NGT FEEDING INCREASE BY 20ML AT THIS TIME GT RESIDUAL IS 75 ML RESUME FEEDING NO NOTED LEAKING ROM THE PEG TUBE SITE.
--- NOTE | 2022-09-06 19:35 | NUR ---
ENDORSED PT TO HILL RICE WEB CONTENT DEVELOPER PT SBAR ALL QUESTIONS ANSWERED.
[2022-09-06] MEDS ORDERED: PRO5 PO (19:49)
[2022-09-06] MEDS: MULTIVITAMIN IV SCH ×4 (20:00)
[2022-09-06] MEDS: [UNRECOGNIZED DRUG - OTHER] IV SCH ×4 (20:00)
[2022-09-06] MEDS: DEXTROSE IV SCH ×4 (20:00)
[2022-09-06] MEDS: AMINO ACIDS IV SCH ×4 (20:00)
--- NOTE | 2022-09-06 20:00 | NUR ---
ORAL CARE USING VAP KIT RENDERED.PT ON PROTONIX DAILY FOR GI PROPHYLAXIS.REPOSITIONED.FLACC 0
[2022-09-06] MEDS: LEVOFLOXACIN 500 MG/D5W PREMIX 100 ML IV SCH (20:11)
--- NOTE | 2022-09-06 22:00 | NUR ---
PT STILL AWAKE.REPOSITIONED, FLACC 0
[2022-09-07] VITALS (21 sets, daily range): BP systolic 77–135; BP diastolic 48–86; PULSE 66–96; RESP 16–73; TEMP 96.4–97.8; O2SAT 89–100
--- NOTE | 2022-09-07 | NUR ---
ORAL CARE USING VAP KIT DONE.SUCTIONED SMALL AMT OF CREAMY SECRETIONS.AFEBRILE.BS 102, NO INSULIN COVERAGE REQUIRED.NGT RESIDUAL 50ML, CONTINUED ON TF, INCREASED TO 30ML/HR ORDERED.FLACC 0
[2022-09-07] MEDS: Z-GUARD PASTE TP SCH ×2 (01:00→12:21)
[2022-09-07] MEDS: ALBUTEROL SULFATE/IPRATROPIU 3 ML SOL IH SCH ×4 (01:24→19:46)
--- NOTE | 2022-09-07 02:12 | NUR ---
PT ASLEEP,EASILY AROUSABLE.NO S/SX OF RESP DISTRESS NOTED, V/S WNL.WILL CONTINUE TO CLOSELY MONITOR PT.REPOSITIONED,FLACC 0
--- NOTE | 2022-09-07 04:00 | NUR ---
ORAL CARE DONE.REPOSITIONED.20ML RESIDUAL NOTED/NGT FEEDING.FLACC 0
[2022-09-07 04:13] LABS: BASOPHILS % (AUTO) 0.4 % (0.0-2.0); EOSINOPHILS # (AUTO) 0.5 K/uL (0-0.4); EOSINOPHILS % (AUTO) 6.8 % (0.0-4.0); HEMATOCRIT 26.7 % (36-48); HEMOGLOBIN 8.7 g/dL (12.0-16.0); LYMPHOCYTES # (AUTO) 2.2 K/uL (2.5-16.5); LYMPHOCYTES % (AUTO) 27.5 % (20.5-51.1); MEAN CORPUSCULAR HEMOGLOBIN 32 pg (27-31); MEAN CORPUSCULAR HGB CONC 33 g/dL (33-37); MEAN CORPUSCULAR VOLUME 96.9 fL (80-94); MONOCYTES # (AUTO) 1.1 K/uL (0.8-1.0); MONOCYTES % (AUTO) 13.1 % (1.7-9.3); NEUTROPHILS # (AUTO) 4.2 K/uL (1.8-7.7); NEUTROPHILS % (AUTO) 52.2 % (42.2-75.2); PLATELET COUNT (AUTO) 97 K/uL (140-450); RED BLOOD CELL COUNT(AUTO) 2.76 MIL/uL (4.20-5.40); RED CELL DISTRIBUTION WIDTH 20.8 % (11.6-13.7); WHITE BLOOD COUNT (AUTO) 8.1 K/uL (4.8-10.8)
[2022-09-07 04:52] LABS: ALBUMIN 1.5 g/dL (3.4-5.0); ASPARTATE AMINOTRANSFERASE 19 U/L (15-37); CARBON DIOXIDE 29.7 mmol/L (21-32); CHLORIDE 102 mmol/L (98-107); CREATININE 3.3 mg/dL (0.6-1.3); GLUCOSE 78 mg/dL (74-106); MAGNESIUM 2.1 mg/dL (1.8-2.4); PHOSPHORUS 4.2 mg/dL (2.5-4.9); POTASSIUM 4.7 mmol/L (3.5-5.1); SODIUM SERUM 137 mmol/L (136-145); TOTAL BILIRUBIN 0.7 mg/dL (0.0-1.0); UREA NITROGEN, BLOOD 29 mg/dL (7-18)
--- NOTE | 2022-09-07 04:57 | NUR ---
MORNING CARE DONE,DRESSING TO SACRAL AREA CHANGED,CONTINUED ON 30ML/HR NGT FEEDING.PICC LINE INTACT INFUSING NS AT KVO.TRACH TO VENT FIO2 STILL AT 28% AC/PRVC MODE
--- NOTE | 2022-09-07 06:14 | NUR ---
PTS CONDITION REMAINS UNCHANGED,STILL OFF LEVOPHED DRIP.NGT FEEDING CONTINUED ORDERED.TRACH TO VENT.FLACC 0.REPOSITIONED
[2022-09-07] MEDS: LEVOTHYROXINE 0.1 MG TAB PO SCH (06:25)
[2022-09-07] MEDS: BLOOD GLUCOSE MONITORING 1 DEV DEV FS SCH ×3 (06:25→18:18)
[2022-09-07] MEDS: METOCLOPRAMIDE 10 MG/2 ML INJ VIAL IVP SCH ×3 (06:25→22:34)
--- NOTE | 2022-09-07 06:45 | NUR ---
RECEIVED PT ON CARESCAPE PRVC 350,F16,+5,28%. iT 0.8. TRACH PORTEX 8. VENT PLUGGED INTO RED OUTLET, WHEELS LOCKED, ALARMS ARE SET AND AUDIBLE TO THE NURSE STATION, AMBUBAG AT BEDSIDE. SLIGHT RHONCHI HEARD ON AUSCULTATION. SUCTIONED OUT SMALL AMOUNT PALE YELLOW SECRETIONS. SATURATION 98%. CALL LIGHT WITHIN REACH. WILL CONTINUE TO MONITOR PATIENT.
--- NOTE | 2022-09-07 07:15 | NUR ---
Report received from casino shift manager nurse KRYSTAL Carbajal. Pt able to track with eyes, unable verbalize needs or wants patient able to respond to physical stimulation. Patient is edematous on the upper extremities. Vent: A/C PRVC FIO2 28%, VT 350, RR 16, PEEP 5. Right upper arm PICC line with dressing dry and intact infusing NS 5 ml/hr TKO. Lungs sounds are present when auscultating. Abdomen is firm G-Tube on standby. Abdominal wound healing with no drainage noted. NGT to left nare with Nepro feeding infusing at 30 ml/hr with free water flush of 30 ml/hr every 6 hrs. Sacral wound. Bilateral foam protectors, lateral foams on lateral portion of the shins. Heel protectors in place and call light within reach.
[2022-09-07] MEDS: PANTOPRAZOLE 40 MG INJ VIAL IVP SCH (09:42)
[2022-09-07] MEDS: MICAFUNGIN SODIUM 100 MG in NACL 0.9% 100 ML IV SCH (09:42)
[2022-09-07] MEDS: EPOETIN ALFA 10,000 UNITS/ML VIAL SUBQ SCH (09:43)
[2022-09-07] MEDS: MIDODRINE 5 MG TAB PO SCH ×3 (09:43→17:00)
[2022-09-07] MEDS ORDERED: ALBUMIN HUMAN 25% 100 ML IV ONE (10:30)
--- NOTE | 2022-09-07 10:40 | NUR ---
Dialysis nurse Dixie arrived for patients dialysis. Start time 1040. VSS.
[2022-09-07] MEDS: GAUZE TP SCH (13:00)
[2022-09-07] MEDS: ALGINATE ROPE MC SCH (13:00)
[2022-09-07] MEDS: THERAHONEY GEL 42.5 GM TP SCH (13:00)
--- NOTE | 2022-09-07 13:22 | NUR ---
Per MD Gillis and MD Evangelista both MD's want to know when it'll be ok to use g-tube. Contacted Dr. Ford regarding using patients G-tube still no response.
--- NOTE | 2022-09-07 13:24 | NUR ---
Contacted Dr. Evangelista regarding patients brown oral secretions that were brought up by RT Marlee. Got orders for STAT chest-xrays and Zofran 4mg IVP q6h. Held tube feedings for now. Will continue to follow plan of care.
--- NOTE | 2022-09-07 13:36 | NUR ---
09/07/22 RD FOLLOW UP COMPLETED PLEASE REFER TO NUTRITION ASSESSMENT UNDER CARE ACTIVITY FOR ESTIMATED NUTRITIONAL NEEDS. 1. CONTINUE ON TF OF NEPRO@30ML/HR TOLERATED WITH FWF 30ML Q6H OR PER MD. THIS WILL PROVIDE 1,296 CALORIES AND 58 GRAMS OF PROTEIN. 2. RD RECOMMENDS JEFF BID FOR WOUNDS, THIS PROVIDES 160 CALORIES AND 5 GRAMS OF PROTEIN. 3. RD TO FOLLOW-UP 2-3 DAYS, HIGH RISK FRANK MAGDALENO RD
--- NOTE | 2022-09-07 13:40 | NUR ---
Dialysis nurse Dixie stated to have removed 1.5L. VSS. Patient tolerted Dialysis.
[2022-09-07] MEDS: ONDANSETRON 4 MG/2 ML VIAL IVP PRN (13:51)
--- NOTE | 2022-09-07 14:00 | NUR ---
Reassessed patient N/V episode. No signs of further vomiting episode. Will continue to follow plan of care.
--- NOTE | 2022-09-07 17:00 | NUR ---
Held patients Midodrine to due elevated BP of 138/53, HR 92, RR 16, SpO2 90%.
--- NOTE | 2022-09-07 19:10 | NUR ---
TRANSFER OF CARE FROM DAY SHIFT, REPORT RECEIVED FROM KRYSTAL FUNG. PATIENT RECIEVED IN BED AWAKE, TRACH TO VENT WITH THE FOLLOWING SETTINGS: AC/VC, FIO2 = 28%, VT= 350, R = 16, PEEP = 5. PATIENT HAS PERMACATH LOCATED IN THE UPPER RIGHT CHEST WALL. PATIENT HAS LOWELL PICC LINE WITH THE FOLLOWING MEDICATIONS CURRENTLY INFUSING: NORMAL SALINE AT 5ML/HR. PATIENT IS RECEIVING NEPHRO @30ML/HR. PATIENT HS THE FOLLOWING WOUNDS: SACRUM = PRESSURE ULCER ABDOMEN = EXCORIATION AROUND THE AREA OF THE GTUBE. BILATERAL POSTERIOR LEGS = SKIN TEARS. PATIENT IS ANURIC, AND RECEIVED HEMODIALYSIS TODAY WITH A TOTAL OUTPUT OF 1.5L. HAS DANIAL CATHETER IN THE LEFT IJ.. PATIENT HAS THE FOLLOWING VITALS AT START OF SHIFT: HR = 91, O2 SAT = 92%, BP = 112/86, R = 16, TEMP = 97.2F. WILL CONTINUE TO MONITOR PATIENT FOR ANY CHANGES IN CONDITION AND NOTIFY MD EXPEDITIOUSLY
--- NOTE | 2022-09-07 19:15 | NUR ---
TRANSFER OF CARE FROM DAY SHIFT, REPORT RECEIVED FROM KRYSTAL LANTIGUA. PATIENT RECEIVED IN BED ON BIPAP WITH THE FOLLOWING SETTINGS: I/E = 15/7, R = 12, FIO2 = 36. PATIENT HAS BILATERAL PERIPHERAL IV LINES IN THE FOREARMS, 20G. PATIENT IS RECEIVING KCL IN D5 AT 80ML/HR. PATIENT HAS LLE SKIN EXCORIATION. PATIENT HAS LEWIS CATHETER IN PLACE WHICH HAS 400ML OF YELLOW URINE IN COLLECTION BAG. PATIENT HAS THE FOLLOWING VITALS AT START OF SHIFT: HR = 95, O2 SAT = 95%, BP = 129/70, R = 16, TEMP = 97.2F. WILL CONTINUE TO MONITOR PATIENT FOR ANY CHANGES IN CONDITION AND NOTIFY MD EXPEDITIOUSLY Addendum: 09/08/22 at 0632 by Luz Maria Lopez RN INCORRECT PATIENT
--- NOTE | 2022-09-07 19:40 | NUR ---
RT AT BEDSIDE, NO CHANGES TO VENT SETTINGS
--- NOTE | 2022-09-07 19:55 | NUR ---
RT AT BEDSIDE, NO CHANGES TO BIPAP SETTINGS
[2022-09-08] VITALS (26 sets, daily range): BP systolic 86–145; BP diastolic 41–80; PULSE 89–106; RESP 12–25; TEMP 96.7–98.4; O2SAT 94–100
[2022-09-08] MEDS: Z-GUARD PASTE TP SCH ×2 (00:13→13:00)
[2022-09-08] MEDS: BLOOD GLUCOSE MONITORING 1 DEV DEV FS SCH ×4 (00:50→18:00)
[2022-09-08] MEDS: ALBUTEROL SULFATE/IPRATROPIU 3 ML SOL IH SCH ×4 (01:58→19:29)
[2022-09-08 05:12] LABS: BASOPHILS % (AUTO) 0.6 % (0.0-2.0); EOSINOPHILS # (AUTO) 0.2 K/uL (0-0.4); EOSINOPHILS % (AUTO) 2.4 % (0.0-4.0); HEMATOCRIT 24.6 % (36-48); HEMOGLOBIN 8.1 g/dL (12.0-16.0); LYMPHOCYTES # (AUTO) 2.4 K/uL (2.5-16.5); LYMPHOCYTES % (AUTO) 30.5 % (20.5-51.1); MEAN CORPUSCULAR HEMOGLOBIN 32 pg (27-31); MEAN CORPUSCULAR HGB CONC 33 g/dL (33-37); MONOCYTES % (AUTO) 12.3 % (1.7-9.3); NEUTROPHILS # (AUTO) 4.3 K/uL (1.8-7.7); NEUTROPHILS % (AUTO) 54.2 % (42.2-75.2); PLATELET COUNT (AUTO) 74 K/uL (140-450); RED BLOOD CELL COUNT(AUTO) 2.54 MIL/uL (4.20-5.40); WHITE BLOOD COUNT (AUTO) 7.9 K/uL (4.8-10.8)
[2022-09-08 05:28] LABS: ALBUMIN 1.7 g/dL (3.4-5.0); ANION GAP 11.3 (8-16); ASPARTATE AMINOTRANSFERASE 20 U/L (15-37); CARBON DIOXIDE 29.1 mmol/L (21-32); CHLORIDE 101 mmol/L (98-107); CREATININE 2.6 mg/dL (0.6-1.3); GLUCOSE 76 mg/dL (74-106); MAGNESIUM 1.9 mg/dL (1.8-2.4); PHOSPHORUS 3.2 mg/dL (2.5-4.9); POTASSIUM 4.4 mmol/L (3.5-5.1); SODIUM SERUM 137 mmol/L (136-145); TOTAL BILIRUBIN 0.9 mg/dL (0.0-1.0); UREA NITROGEN, BLOOD 18 mg/dL (7-18)
[2022-09-08] MEDS: LEVOTHYROXINE 0.1 MG TAB PO SCH (06:44)
[2022-09-08] MEDS: METOCLOPRAMIDE 10 MG/2 ML INJ VIAL IVP SCH ×2 (06:45→15:00)
[2022-09-08] MEDS: PANTOPRAZOLE 40 MG INJ VIAL IVP SCH (08:46)
[2022-09-08] MEDS: MIDODRINE 5 MG TAB PO SCH ×3 (08:46→17:56)
--- NOTE | 2022-09-08 08:49 | NUR ---
reviewed patient labs and xray status shows a left basal infiltate no current white count, grabiel paged to see if he wants to start abx. gt sight showed in xray that its in place. pt alert and awake calm while intubated, am 0900 meds given through her left nare ngt. gopal returned forestry fire aid to franci infectious dsx.
--- NOTE | 2022-09-08 10:30 | NUR ---
1st contact with Pt. report received and care assumed. Pt. with no acute distress. Trach in place with FiO2 at 28% pt. tolerating with no difficulty. N-G tube in place with NO tube feeding now. G-Tube in place with no tube feeding now infusing due to leaking. Dressing intact. Pt. does not produce urine and NO Mckeon cath in place. Multiple skin lesions - see wounds documentation. PICC line to right upper arm in place with dressing and insertion site intact. Will cont. to monitor. Pt. with NO SOB.
--- NOTE | 2022-09-08 11:36 | NUR ---
WOUND CARE RE-EVALUATION NOTE: NEW GT IN PLACE. KWAKU STOMA MASD RESPONDING TO THERAHONEY GEL, SLOUGH TISSUES HAS PEELING OFF. WILL CONTINUE SAME INTERVENTIONS. -UCHAC-KUVG-RBGDO SKIN, DRY INTACT -UPPER ARMS MULTIPLE ECCHYMOSIS, NO NEW ECCHYMOSIS NOTICE -MOISTURE ASSOCIATED SKIN DAMAGE(MASD) TO: B/L GROINS, MEDIAL THIGHS AND BUTTOCKS, SKIN PINK,MOIST -PRESSURE INJURY UN-STAGEABLE, SACROCOCCYX 1X1CM, WOUND BED 100% YELLOW SLOUGH TISSUE, MOIST, NO ODOR, WOUND EDGE FLAT, KWAKU-WOUND SKIN MOIST SURROUNDING MASD INDICATED FURTHER DAMAGE -PRESSURE INJURY UN-STAGEABLE, THORACIC SPINE 1X1CM, WOUND BED 100% DRY BROWN SCABBING TISSUE, NO ODOR, WOUND EDGE FLAT, KWAKU-WOUND SKIN INTACT - PVD LEFT CALF, 3.5X1.5CM WOUND BED IS 100% BROWN TISSUE, DRY, NO ODOR, KWAKU WOUND DRY, PEELING SKIN. - PVD RIGHT CALF, 1X0.5CM WOUND BED IS 100% BROWN TISSUE, DRY, NO ODOR, KWAKU WOUND DRY, PEELING SKIN. RIGHT DORSAL FOOT +1 EDEMA -ABDOMINAL SEVER MASD SKIN RASHES IMPROVING WITH NYSTATIN CR, ENTIRE AREA [id number]. WITH GT SITE KWAKU WOUND SKIN 40% BROWN/YELLOW SLOUGH TISSUE 60% PINK TISSUE. NO ODOR, WEEPING SMALL AMOUNT SEROUS DRAINAGE.
[2022-09-08] MEDS: ALGINATE ROPE MC SCH (13:00)
[2022-09-08] MEDS: GAUZE TP SCH (13:00)
[2022-09-08] MEDS: THERAHONEY GEL 42.5 GM TP SCH (13:00)
--- NOTE | 2022-09-08 15:00 | NUR ---
Total linen changed done, pt. cleaned and all dressing changed per protocol. Trach in place with ventilator assistance. Pt. with no SX of pain or discomfort. Will cont. to monitor.
[2022-09-08] MEDS ORDERED: NIFEdipine 10 MG CAPLF ONE ×2 (17:44→19:20)
--- NOTE | 2022-09-08 19:30 | NUR ---
Pt. with no acute distress. Trach in place with FiO2 at 28% pt. tolerating with no difficulty. N-G tube in place with NO tube feeding now. G-Tube in place with no tube feeding now infusing due to leaking. Dressing intact. Pt. does not produce urine and NO Mckeon cath in place. Multiple skin lesions - see wounds documentation. PICC line to right upper arm in place with dressing and insertion site intact. Will cont. to monitor. Pt. with NO SOB. Report given to Reyna RICE for night clerk auditor care.
[2022-09-09] VITALS (32 sets, daily range): BP systolic 68–146; BP diastolic 44–91; PULSE 75–99; RESP 16–27; TEMP 96.4–97.8; O2SAT 92–100
--- NOTE | 2022-09-09 | NUR ---
AFEBRILE.BS 96, NO INSULIN COVERAGE REQUIRED.ORAL CARE DONE.REPOSITIONED.FLACC 0.CALL LIGHT WITHIN REACH.BED IN LOW POSITION
[2022-09-09] MEDS: METOCLOPRAMIDE 10 MG/2 ML INJ VIAL IVP SCH ×4 (00:23→22:43)
[2022-09-09] MEDS: BLOOD GLUCOSE MONITORING 1 DEV DEV FS SCH ×5 (00:40→23:50)
[2022-09-09] MEDS: Z-GUARD PASTE TP SCH ×2 (01:00→13:42)
[2022-09-09] MEDS: ALBUTEROL SULFATE/IPRATROPIU 3 ML SOL IH SCH ×4 (01:10→20:10)
[2022-09-09] MEDS: DEXTROSE 5% 1,000 ML IV SCH ×2 (02:31→22:41)
[2022-09-09 05:32] LABS: BASOPHILS % (AUTO) 0.6 % (0.0-2.0); EOSINOPHILS # (AUTO) 0.2 K/uL (0-0.4); EOSINOPHILS % (AUTO) 2.6 % (0.0-4.0); HEMATOCRIT 25.4 % (36-48); HEMOGLOBIN 8.3 g/dL (12.0-16.0); LYMPHOCYTES # (AUTO) 2.7 K/uL (2.5-16.5); MEAN CORPUSCULAR HEMOGLOBIN 32 pg (27-31); MEAN CORPUSCULAR HGB CONC 33 g/dL (33-37); MEAN CORPUSCULAR VOLUME 97.5 fL (80-94); MONOCYTES # (AUTO) 1.1 K/uL (0.8-1.0); MONOCYTES % (AUTO) 15.1 % (1.7-9.3); NEUTROPHILS # (AUTO) 3.1 K/uL (1.8-7.7); NEUTROPHILS % (AUTO) 43.7 % (42.2-75.2); PLATELET COUNT (AUTO) 122 K/uL (140-450); RED BLOOD CELL COUNT(AUTO) 2.61 MIL/uL (4.20-5.40); RED CELL DISTRIBUTION WIDTH 20.7 % (11.6-13.7); WHITE BLOOD COUNT (AUTO) 7.1 K/uL (4.8-10.8)
--- NOTE | 2022-09-09 06:00 | NUR ---
Pt. on Bipap 15/7 FiO2=80% with N7Cuw=200% A. Fib on the scope w/ occ. PVCs. Pt. turned and kept clean and dry. Bed bath rendered. Secretions suctioned prn. Oral care done. Cardiac and resp. monitoring cont. Needs met. Addendum: 09/09/22 at 0844 by Agency 06 KRYSTAL RN Mistaken entry; for other patientr.
[2022-09-09 06:03] LABS: ALBUMIN 1.8 g/dL (3.4-5.0); ANION GAP 13.1 (8-16); ASPARTATE AMINOTRANSFERASE 23 U/L (15-37); CARBON DIOXIDE 28.5 mmol/L (21-32); CHLORIDE 98 mmol/L (98-107); CREATININE 3.3 mg/dL (0.6-1.3); GLUCOSE 87 mg/dL (74-106); MAGNESIUM 1.9 mg/dL (1.8-2.4); PHOSPHORUS 3.9 mg/dL (2.5-4.9); POTASSIUM 4.6 mmol/L (3.5-5.1); SODIUM SERUM 135 mmol/L (136-145); UREA NITROGEN, BLOOD 21 mg/dL (7-18)
--- NOTE | 2022-09-09 07:15 | NUR ---
RECEIVED BEDSIDE REPORT FROM BAR MACHINE OPERATOR PRODUCTION MAY RN. PT AWAKE AND BE ABLE TO TRACK, NOT FOLLOW SIMPLE COMMAND. SR ON MONITOR. TRACH TO VENT, FIO2 28%, RATE 16, PEEP 5, VT 350, NO S/S OF ACUTE RESP. DISTRESS. NG TUBE TO LT NARE CLAMPED, NPO ONLY FOR MEDS. G TUBE CLAMPED DUE TO LEAKING. PICC LINE TO LOWELL, INFUSING D5W @50 ML/HR, TKO NS@ 5ML/H. LT IJ DANIAL CATHETER CLAMPED. INCONTINENT, AURIC PT. SEE WOUND ASSESSMENT. ALL THE SAFETY PRECAUTION IN PLACE, WILL CONTINUE TO MONITOR.
[2022-09-09] MEDS: LEVOTHYROXINE 0.1 MG TAB PO SCH (08:15)
--- NOTE | 2022-09-09 08:55 | NUR ---
Called Dr. Mckeon van helper [phone] and received order for hemodialysis today. Please see order set.
[2022-09-09] MEDS ORDERED: ALBUMIN HUMAN 25% 100 ML IV ONE (09:05)
[2022-09-09] MEDS: MIDODRINE 5 MG TAB PO SCH ×3 (09:09→17:16)
[2022-09-09] MEDS: PANTOPRAZOLE 40 MG INJ VIAL IVP SCH (09:10)
[2022-09-09] MEDS: ALBUMIN HUMAN 25% 100 ML IV SCH (09:15)
--- NOTE | 2022-09-09 09:20 | NUR ---
HD STARTED AT BEDSIDE. EPOETIN LIU (SCHEDULED AT 0900)WILL BE GIVEN AFTER HD.
[2022-09-09] MEDS: EPOETIN ALFA 10,000 UNITS/ML VIAL SUBQ SCH (13:41)
[2022-09-09] MEDS: ALGINATE ROPE MC SCH (13:42)
[2022-09-09] MEDS: THERAHONEY GEL 42.5 GM TP SCH (13:42)
[2022-09-09] MEDS: GAUZE TP SCH (13:42)
[2022-09-09] MEDS: NOREPINEPHRINE 8 MG in DEXTROSE 5% 250 ML IV PRN (18:47)
--- NOTE | 2022-09-09 19:30 | NUR ---
ASSUMED CARE OF PT.INITIAL ASSESSMENT COMPLETED. ANASARCA STILL NOTED.SR NOTED ON MONITOR.OPENS EYES SPONTANEOUSLY BUT NOT FOLLOWING COMMANDS.TRACH TO VENT AC PRVC FIO2 24 % TV 350 RATE 16 PEEP 5.W/HD CATH TO LT IJ W/PIGTAIL, DRY DRESSING NOTED.PICC LINE TO LOWELL INTACT W/GOOD BLOOD RETURN TO BOTH PORTS INFUSING NS AT KVO .W/NGT TO LT NARES IN PLACE, PLACEMENT VERIFIED,CLAMPED.G TUBE ALSO IN PLACE,CLAMPED. W/MULTIPLE WOUNDS, DRESSINGS IN PLACE,SEE WOUND ASSESSMENT.FLACC 0.FALL AND CONTACT PRECAUTION IN PLACE.BED IN LOW POSITION.CALL LIGHT WITHIN REACH.WILL CONTINUE TO CLOSELY MONITOR PT.
--- NOTE | 2022-09-09 20:00 | NUR ---
ORAL CARE USING VAP KIT RENDERED.PT ON DAILY PROTONIX FOR GI PROPHYLAXIS.REPOSITIONED.FLACC 0
[2022-09-10] VITALS (31 sets, daily range): BP systolic 90–142; BP diastolic 41–70; PULSE 82–90; RESP 16–19; TEMP 97.1–97.6; O2SAT 92–98
--- NOTE | 2022-09-10 | NUR ---
ORAL CARE DONE.AFEBRILE.REPOSITIONED.BS 96, NO INSULIN COVERAGE REQUIRED.CALL LIGHT WITHIN REACH
[2022-09-10] MEDS: Z-GUARD PASTE TP SCH ×2 (00:51→12:30)
[2022-09-10] MEDS: ALBUTEROL SULFATE/IPRATROPIU 3 ML SOL IH SCH ×4 (01:15→19:37)
--- NOTE | 2022-09-10 02:00 | NUR ---
PTS CONDITION REMAINS UNCHANGED.TRACH TO VENT FIO2 STILL AT 24%.SECRETIONS SUCTIONED NEEDED, WHITISH SECRETIONS NOTED.PICC LINE INTACT WITH NS AT KVO.FLACC 0.REPOSITIONED
--- NOTE | 2022-09-10 04:00 | NUR ---
ORAL CARE USING VAP KIT DONE.PT REPOSITIONED.FLACC 0
[2022-09-10 05:29] LABS: HEMATOCRIT 23.5 % (36-48); HEMOGLOBIN 7.6 g/dL (12.0-16.0); MEAN CORPUSCULAR HEMOGLOBIN 31 pg (27-31); MEAN CORPUSCULAR HGB CONC 32 g/dL (33-37); MEAN CORPUSCULAR VOLUME 97.6 fL (80-94); PLATELET COUNT (AUTO) 81 K/uL (140-450); RED BLOOD CELL COUNT(AUTO) 2.41 MIL/uL (4.20-5.40); RED CELL DISTRIBUTION WIDTH 19.8 % (11.6-13.7); WHITE BLOOD COUNT (AUTO) 6.4 K/uL (4.8-10.8)
[2022-09-10] MEDS: BLOOD GLUCOSE MONITORING 1 DEV DEV FS SCH ×3 (05:43→18:48)
[2022-09-10 06:00] LABS: ALBUMIN 2.2 g/dL (3.4-5.0); ASPARTATE AMINOTRANSFERASE 20 U/L (15-37); CARBON DIOXIDE 29.9 mmol/L (21-32); CHLORIDE 99 mmol/L (98-107); CREATININE 2.5 mg/dL (0.6-1.3); GLUCOSE 98 mg/dL (74-106); POTASSIUM 3.9 mmol/L (3.5-5.1); SODIUM SERUM 135 mmol/L (136-145); TOTAL BILIRUBIN 1.3 mg/dL (0.0-1.0); UREA NITROGEN, BLOOD 13 mg/dL (7-18)
--- NOTE | 2022-09-10 06:00 | NUR ---
MORNING CARE DONE BY KRYSTAL MATTHEW RN
[2022-09-10 06:17] LABS: BASOPHILS % (MANUAL) 0 % (0-2); EOSINOPHILS % (MANUAL) 4 % (0-4); LYMPHOCYTES % (MANUAL) 26 % (20-46); MONOCYTES % (MANUAL) 13 % (5-12)
[2022-09-10] MEDS: LEVOTHYROXINE 0.1 MG TAB PO SCH (06:30)
[2022-09-10] MEDS: METOCLOPRAMIDE 10 MG/2 ML INJ VIAL IVP SCH ×3 (07:04→20:44)
--- NOTE | 2022-09-10 07:41 | NUR ---
REPORT GIVEN TO RN MAY FOR CONTINUITY OF CARE
[2022-09-10] MEDS: PANTOPRAZOLE 40 MG INJ VIAL IVP SCH (09:48)
[2022-09-10] MEDS: ALBUMIN HUMAN 25% 100 ML IV SCH (09:49)
[2022-09-10] MEDS: MIDODRINE 5 MG TAB PO SCH ×3 (09:49→18:48)
[2022-09-10] MEDS: ALGINATE ROPE MC SCH (12:30)
[2022-09-10] MEDS: THERAHONEY GEL 42.5 GM TP SCH (12:30)
[2022-09-10] MEDS: GAUZE TP SCH (13:00)
--- NOTE | 2022-09-10 14:40 | NUR ---
Dr. Mckeon (filbert grower) came to examine pt. Per MD order, he changed IV fluid to D10%W at 30 cc/hr. to limit this dialysis pt.'s fluid intake orders placed and primary nurse Reyna RICE notified.
[2022-09-10] MEDS: DEXTROSE 10% 1,000 ML IV SCH (14:58)
--- NOTE | 2022-09-10 15:04 | NUR ---
09/10/22 RD FOLLOW UP COMPLETED PLEASE REFER TO NUTRITION ASSESSMENT UNDER CARE ACTIVITY FOR ESTIMATED NUTRITIONAL NEEDS. 1. WHEN/IF MEDICALLY APPROPRIATE, CONTINUE WITH NEPRO@30ML/HR TOLERATED WITH FWF 30ML Q6H OR PER MD. THIS WILL PROVIDE 1,296 CALORIES AND 58 GRAMS OF PROTEIN. 2. RD RECOMMENDS JEFF BID FOR WOUNDS, THIS PROVIDES 160 CALORIES AND 5 GRAMS OF PROTEIN. 3. WILL MONITOR ENERGY INTAKE, NUTRITION-RELATED LAB VALUES, AND FLUID RETENTION 4. RD TO FOLLOW-UP 2-3 DAYS, HIGH RISK PRANAY BALLESTEROS RD
--- NOTE | 2022-09-10 18:45 | NUR ---
Pt. opens eyes and tracks but does not follow commands. SR on the scope. VSS. NGT clamped for meds.; kept NPO as GT leaking @ site. D10W started @ 30 ml/hr; AK=[id number]. Dressings on buttock, back, both lateral shins, abdomen chaged as ordered. On vent via trach with W2Qgm=76 to 99% on current settings. Cardiac and resp. monitoring cont. Needs met. kept clean and dry. Repositioned.
--- NOTE | 2022-09-10 18:45 | NUR ---
Pt. opens eyes and tracks but does not follow commands. SR on the scope. VSS. Kept NPO for leaking GT; NGT clamped for meds. D10W started @ 30 ml/hr as ord. ZU=[id number]. Dressings on abd. Bi;. peguero, Left shoulder, buttock and abdomen chnaged as ordered. Wounds healing well. On vent via trach with V4Mkw=77 to 99% on current vent settings; secretions suctioned prn. Cardiac and resp. monitoring cont. Needs met. Kept clean and dry. Repositioned.
--- NOTE | 2022-09-10 19:29 | NUR ---
After 3 calls during the day, this RN was able to speak to pt.' son Isai Silva [phone]. Pt. Catie Silva needs placement of NEW tunnel dialysis catheter to the chest wall. Procedure explained to pt.'s son and he was allowed to ask questions. Pt.'s SON agreed and consented via telephone to have catheter placed. Telephone consent also witnessed by Dana RICE and she spoke to pt.s son as well. Consent form was signed by this RN writing and Dana RICE.
--- NOTE | 2022-09-10 19:30 | NUR ---
ASSUMED CARE OF PT.INITIAL ASSESSMENT COMPLETED.SR NOTED ON MONITOR.GENERALIZED PITTING +3 EDEMA STILL NOTED.OPENS EYES SPONTANEOUSLY BUT STILL NOT FOLLOWING COMMANDS.TRACH TO VENT AC PRVC FIO2 24 % TV 350 RATE 16 PEEP 5.W/HD CATH TO LT IJ W/PIGTAIL, DRESSING INTACT.PICC LINE TO LOWELL INTACT W/GOOD BLOOD RETURN TO BOTH PORTS INFUSING NS AT KVO .W/NGT TO LT NARES IN PLACE, PLACEMENT VERIFIED,CLAMPED.G TUBE ALSO IN PLACE,CLAMPED. W/MULTIPLE WOUNDS, DRESSINGS IN PLACE,SEE WOUND ASSESSMENT.FLACC 0.FALL AND CONTACT PRECAUTION IN PLACE.BED IN LOW POSITION.CALL LIGHT WITHIN REACH.
--- NOTE | 2022-09-10 20:00 | NUR ---
ORAL CARE USING VAP KIT RENDERED.WHITISH SECRETIONS SUCTIONED,SMALL AMT.PT ON PROTONIX DAILY FOR GI PROPHYLAXIS.REPOSITIONED.FLACC 0
--- NOTE | 2022-09-10 22:00 | NUR ---
PT REPOSITIONED.NO SOB NOTED.FLACC 0.WILL CONTINUE TO CLOSELY MONITOR PT
[2022-09-11] VITALS (21 sets, daily range): BP systolic 91–135; BP diastolic 43–82; PULSE 80–95; RESP 13–22; TEMP 97.2–97.5; O2SAT 92–100
--- NOTE | 2022-09-11 | NUR ---
PTS CONDITION REMAINS UNCHANGED.ORAL CARE DONE.REPOSITIONED.NO S/SX O F RESP DISTRESS.FLACC0
[2022-09-11] MEDS: ALBUTEROL SULFATE/IPRATROPIU 3 ML SOL IH SCH ×4 (00:09→19:09)
[2022-09-11] MEDS: BLOOD GLUCOSE MONITORING 1 DEV DEV FS SCH ×4 (00:21→17:52)
[2022-09-11] MEDS: Z-GUARD PASTE TP SCH ×2 (00:22→12:11)
--- NOTE | 2022-09-11 02:00 | NUR ---
PT REPOSITIONED.FLACC 0.CALL LIGHT WITHIN REACH.BED IN LOW POSITION
--- NOTE | 2022-09-11 05:00 | NUR ---
MORNING CARE DONE, CHG BATH.DRESSING TO ABDOMEN CHANGED, STILL SMALL AMT OF LEAKING NOTED FROM GT SITE FLACC 0
[2022-09-11 05:02] LABS: BASOPHILS # (AUTO) 0.1 K/uL (0.00-0.22); BASOPHILS % (AUTO) 0.8 % (0.0-2.0); EOSINOPHILS # (AUTO) 0.3 K/uL (0-0.4); HEMATOCRIT 24.8 % (36-48); HEMOGLOBIN 8.1 g/dL (12.0-16.0); LYMPHOCYTES # (AUTO) 2.3 K/uL (2.5-16.5); LYMPHOCYTES % (AUTO) 32.5 % (20.5-51.1); MEAN CORPUSCULAR HEMOGLOBIN 32 pg (27-31); MEAN CORPUSCULAR HGB CONC 33 g/dL (33-37); MEAN CORPUSCULAR VOLUME 97.7 fL (80-94); MONOCYTES # (AUTO) 1.2 K/uL (0.8-1.0); MONOCYTES % (AUTO) 16.8 % (1.7-9.3); NEUTROPHILS # (AUTO) 3.3 K/uL (1.8-7.7); NEUTROPHILS % (AUTO) 45.9 % (42.2-75.2); PLATELET COUNT (AUTO) 108 K/uL (140-450); RED BLOOD CELL COUNT(AUTO) 2.54 MIL/uL (4.20-5.40); WHITE BLOOD COUNT (AUTO) 7.1 K/uL (4.8-10.8)
[2022-09-11 05:36] LABS: PROTHROMBIN TIME 12.8 secs (10.8-13.4)
[2022-09-11 05:51] LABS: ALBUMIN 2.2 g/dL (3.4-5.0); ANION GAP 11.5 (8-16); ASPARTATE AMINOTRANSFERASE 19 U/L (15-37); CARBON DIOXIDE 28.4 mmol/L (21-32); CHLORIDE 97 mmol/L (98-107); GLUCOSE 96 mg/dL (74-106); POTASSIUM 3.9 mmol/L (3.5-5.1); SODIUM SERUM 133 mmol/L (136-145); TOTAL BILIRUBIN 1.4 mg/dL (0.0-1.0); UREA NITROGEN, BLOOD 14 mg/dL (7-18)
[2022-09-11] MEDS: METOCLOPRAMIDE 10 MG/2 ML INJ VIAL IVP SCH ×3 (06:01→20:46)
[2022-09-11] MEDS: LEVOTHYROXINE 0.1 MG TAB PO SCH (06:30)
--- NOTE | 2022-09-11 08:04 | NUR ---
RECEIVED REPORT FROM RESOURCE EFFICIENCY MANAGER NURSE. PATIENT LYING DOWN IN BED, TRACH TO VENT WITH SETTINGS: A/C PRVC, FIO2: 24%, VT:350, RATE 16, PEEP:5, O2 SAT 97%. NO DISTRESS NOTED. AAXO1. BUE CONTRACTURES. MULTIPLE WOUNDS, DRESSINGS INTACT. GTUBE IN PLACE, LEAKING, NPO AT THIS TIME. LEFT IJ DANIAL CATH IN PLACE, LOWELL PICC LINE INTACT, PATENT, AND INFUSING IVF PER MD ORDERS. REVIEWED PLAN OF CARE WITH PATIENT, UNABLE TO COMPREHEND. SAFETY MEASURES IN PLACE, CALL LIGHT WITHIN REACH. WILL CONTINUE TO MONITOR.
[2022-09-11] MEDS: MIDODRINE 5 MG TAB PO SCH ×3 (08:43→17:53)
[2022-09-11] MEDS: PANTOPRAZOLE 40 MG INJ VIAL IVP SCH (08:43)
[2022-09-11] MEDS ORDERED: LIDOCAINE 1% 500 MG/50 ML VIAL ONE (09:12)
--- NOTE | 2022-09-11 09:30 | NUR ---
SCHEDULED MEDICATIONS DUE GIVEN. WILL CONTINUE TO MONITOR.
--- NOTE | 2022-09-11 10:00 | NUR ---
IR MD AND OR NURSES ON UNIT TO TAKE PATIENT FOR HD TUNNELED CATHETER PLACEMENT. NEW CONSENT FORM OBTAINED VIA PHONE WITH IR MD AND ANESTHESIOLOGIST TALKING WITH SON, MIRNA. MDS' ANSWERED ALL OF PATIENT'S SON QUESTIONS. WILL CONTINUE TO MONITOR WHEN PATIENT RETURNS FROM OR.
--- NOTE | 2022-09-11 10:00 | NUR ---
BAGGED PT TO OR FOR PROCEDURE. TRANSFER WENT WELL, NO COMPLICATIONS. WILL BE ON STANDBY WAITING FOR CALL TO TRANSFER PT BACK TO ICU.
[2022-09-11] MEDS ORDERED: SEVOFLURANE 250 ML BTL INH ONE (10:09)
[2022-09-11] MEDS ORDERED: LIDOCAINE/EPI MPF 1%1:200000 30 ML VIAL INJ ONE (10:28)
[2022-09-11] MEDS ORDERED: PROPOFOL 200 MG/20 ML VIAL IV ONE (10:40)
[2022-09-11] MEDS ORDERED: hydrALAZINE 20 MG/ML VIAL IVP PRN (11:39)
[2022-09-11] MEDS ORDERED: LABETALOL 20 MG/4 ML VIAL IVP PRN (11:39)
[2022-09-11] MEDS ORDERED: BLOOD GLUCOSE MONITORING 1 DEV DEV FS SCH (11:40)
[2022-09-11] MEDS ORDERED: NACL 0.9% 1,000 ML IV SCH (11:40)
[2022-09-11] MEDS ORDERED: ONDANSETRON 4 MG/2 ML VIAL IVP PRN (11:40)
--- NOTE | 2022-09-11 11:51 | NUR ---
PATIENT BACK FROM OR, LEFT HD TUNNELED CATHETER PLACED. NO DISTRESS NOTED. PER ALEKSANDRA FOWLER, DR GREGORY DE SOUZA, OK TO USE NEWLY PLACED TUNNELED HD CATH. HD NURSE AT BEDSIDE, GETTING READY FOR DIALYSIS. WILL CONTINUE TO MONITOR.
[2022-09-11] MEDS ORDERED: ALBUMIN HUMAN 25% 100 ML IV SCH (12:00)
[2022-09-11] MEDS: THERAHONEY GEL 42.5 GM TP SCH (12:11)
[2022-09-11] MEDS: GAUZE TP SCH (12:11)
[2022-09-11] MEDS: ALGINATE ROPE MC SCH (12:11)
--- NOTE | 2022-09-11 12:21 | NUR ---
SCHEDULED MEDICATIONS DUE GIVEN. REGLAN IVP NOT GIVEN AT THIS TIME PATIENT JUST STARTED ON HEMODIALYSIS. WILL CONTINUE TO MONITOR.
--- NOTE | 2022-09-11 15:00 | NUR ---
DR. RIDDLE AT BEDSIDE. PER MD, GTUBE WAS NOT FULLY INFLATED, MISSING [address] RIDDLE REINSERTED AND REINFLATED, TESTED WITH 180 ML WATER FLUSH, MINIMAL LEAKING AFTERWARDS. PLACE GTUBE TO 24 HOUR GRAVITY DRAINAGE, AND HE WILL REASSESS TOMORROW. POSSIBLE START GTUBE FEEDING IF NO LEAKAGE TOMORROW.
[2022-09-11] MEDS: DEXTROSE 10% 1,000 ML IV SCH (15:11)
--- NOTE | 2022-09-11 16:00 | NUR ---
HD COMPLETED, 2.5 L OUT. NO DISTRESS NOTED. WILL CONTINUE TO MONITOR.
--- NOTE | 2022-09-11 18:01 | NUR ---
SCHEDULED MEDICATIONS DUE GIVEN. WILL CONTINUE TO MONITOR.
--- NOTE | 2022-09-11 19:10 | NUR ---
GAVE REPORT TO CHANNEL LIP STIFFENER INSOLES NURSE FOR CONTINUITY OF CARE.
--- NOTE | 2022-09-11 19:15 | NUR ---
RECEIVED REPORT FROM DAY SHIFT NURSE. PATIENT IS ASLEEP ON SEMI-GARDNER'S POSITION, SIDE RAILS UP X2, CALL LIGHT WITHIN REACH. TRACH TO VENT WITH SETTINGS: A/C PRVC, FIO2: 24%, VT:350, RATE 16, PEEP:5, O2 SAT 9%. NO DISTRESS NOTED. SR TO SHOOTING GALLERY OPERATOR. ANASARCA NOTED. WITH LOWELL PICC LINE INTACT, PATENT, AND INFUSING IVF PER MD ORDERED. WITH LT UPPER CHEST HD CATHETER WITH DRESSING INTACT. ABDOMEN FIRM AND ACTIVE BOWEL SOUNDS. NGT TO LT NARES INTACT AND CLAMPED . MULTIPLE WOUNDS, DRESSINGS INTACT. SAFETY MEASURES IN PLACE. WILL CONTINUE TO MONITOR PT. Addendum: 09/12/22 at 2056 by KENNETH PÉREZ RN O2 SAT 94%
--- NOTE | 2022-09-11 20:10 | NUR ---
CHECKED NGT PLACEMENT - CONFIRMED. PROVIDED ORAL CARE. REPOSITIONED PT. KEPT COMFORTABLE. SAFETY PRECAUTIONS MAINTAINED.
--- NOTE | 2022-09-11 21:46 | NUR ---
PHONE CALL TO ON AFTER HOUR PHARMACY,SPOKE WITH LILIANE REGARDING PROCRIT DOSAGE WHICH IS SCHEDULED FOR TOMORROW AT 0900, PT HAD HEMODIALYSIS TODAY, PER PHARMACIST TO GIVE THE MEDICATION TODAY.
[2022-09-11] MEDS: EPOETIN ALFA 10,000 UNITS/ML VIAL SUBQ SCH (21:48)
--- NOTE | 2022-09-11 21:50 | NUR ---
DR. VALERA CAME AND CHECKED THE PT AND NO NEW ORDERS GIVEN.
[2022-09-12] VITALS (22 sets, daily range): BP systolic 86–121; BP diastolic 43–77; PULSE 86–98; RESP 14–25; TEMP 96.5–97.2; O2SAT 93–100
--- NOTE | 2022-09-12 | NUR ---
ORAL CARE PROVIDED. REPOSITIONED PT. BLOOD SUGAR CHECKED= 94. DUE MEDS GIVEN PER MD ORDERED.
[2022-09-12] MEDS: BLOOD GLUCOSE MONITORING 1 DEV DEV FS SCH ×4 (00:29→18:04)
[2022-09-12] MEDS: ALBUTEROL SULFATE/IPRATROPIU 3 ML SOL IH SCH ×4 (00:51→19:21)
[2022-09-12] MEDS: Z-GUARD PASTE TP SCH ×2 (01:56→12:20)
--- NOTE | 2022-09-12 04:00 | NUR ---
WOUND DRESSING CHANGE. AM AND ORAL CARE PROVIDED. REPOSITIONED PT. DRAW BLOOD FROM LOWELL PICC LINE FOR LAB WORKS. SAFETY PRECAUTIONS MAINTAINED. KEPT COMFORTABLE.
[2022-09-12 05:11] LABS: BASOPHILS % (AUTO) 0.7 % (0.0-2.0); EOSINOPHILS # (AUTO) 0.2 K/uL (0-0.4); EOSINOPHILS % (AUTO) 3.7 % (0.0-4.0); HEMATOCRIT 23.6 % (36-48); HEMOGLOBIN 7.7 g/dL (12.0-16.0); LYMPHOCYTES # (AUTO) 2.1 K/uL (2.5-16.5); LYMPHOCYTES % (AUTO) 35.7 % (20.5-51.1); MEAN CORPUSCULAR HEMOGLOBIN 32 pg (27-31); MEAN CORPUSCULAR HGB CONC 33 g/dL (33-37); MEAN CORPUSCULAR VOLUME 96.7 fL (80-94); NEUTROPHILS # (AUTO) 2.6 K/uL (1.8-7.7); NEUTROPHILS % (AUTO) 42.9 % (42.2-75.2); PLATELET COUNT (AUTO) 78 K/uL (140-450); RED BLOOD CELL COUNT(AUTO) 2.44 MIL/uL (4.20-5.40); RED CELL DISTRIBUTION WIDTH 19.5 % (11.6-13.7)
[2022-09-12] MEDS: METOCLOPRAMIDE 10 MG/2 ML INJ VIAL IVP SCH ×3 (05:16→20:23)
[2022-09-12 05:34] LABS: ALBUMIN 2.2 g/dL (3.4-5.0); ANION GAP 9.8 (8-16); ASPARTATE AMINOTRANSFERASE 19 U/L (15-37); CARBON DIOXIDE 31.3 mmol/L (21-32); CHLORIDE 101 mmol/L (98-107); CREATININE 2.6 mg/dL (0.6-1.3); GLUCOSE 107 mg/dL (74-106); POTASSIUM 4.1 mmol/L (3.5-5.1); SODIUM SERUM 138 mmol/L (136-145); TOTAL BILIRUBIN 1.4 mg/dL (0.0-1.0); UREA NITROGEN, BLOOD 10 mg/dL (7-18)
[2022-09-12] MEDS: LEVOTHYROXINE 0.1 MG TAB PO SCH (05:52)
--- NOTE | 2022-09-12 07:13 | NUR ---
RECEIVED PT ON [place] PRVC 350, F16, 0.9, 24%. SATURATION 98%, RHONCHI HEARD ON AUSCULTATION, TREATMENT GIVEN. VENT PLUGGED INTO RED OUTLET, WHEELS LOCKED, AMBUBAG AT BEDSIDE, ALARMS ARE SET AND AUDIBLE TO THE NURSE STATION. WILL CONTINUE TO MONITOR, CALL LIGHT WITHIN REACH.
--- NOTE | 2022-09-12 07:30 | NUR ---
ENDORSED PT. TO NURSE KINDRA. ALL QUESTIONS ANSWERED.
--- NOTE | 2022-09-12 07:42 | NUR ---
RECEIVED PT FROM KENNETH GARNER RN PATIENT OMBUDSPERSON PT ADMIT FOR HYPOXIA PT V/S IS 19 RR, 91 HR, 100% O2 SAT AND 106/54 BP PT IS ON TRACHE TO VENT AC/PRVC FIO2 24% TV 350 RR 16 PEEP 5 PT CAN OPEN EYES AROUSABLE TO VOICE AND MILD STIMULI, PT HAS NO SOB PT IS SINUS RHYTHM ON THE MONITOR. PT HAS LEFT NGT CLAMPED, AND GTUBE CONNECTED TO GRAVITY DRAINAGE WITH YELLOWISH COLOR, ORDER BY DR. RIDDLE TO MONITOR FOR 24H FROM YESTERDAY. PER REPORT NO BM NOTES. PT HAS FIRM AND DISTENDED ABDOMENPT HAS HD YESTERDAY 2.5 L OUTPUT. PT HAS LOWELL PICC AND LEFT CHEST PERMACATH FOR HD ACCESS. PT IS ON D10 AT 30 ML AND LEVOPHED IS HOLD. PT HAS MULTIPLE SKIN PROBLEMS AND DRESSING IS DRY AND INTACT WILL SEE NOTES PT ON LEFT SIDE KEPT COMFORTABLE 2 SIDE RAILS UP CALL LIGHT WITHN REACH BED LOW AND LOCKED WILL CONTINUE TO MONITOR
--- NOTE | 2022-09-12 07:54 | NUR ---
DR. BELL CAME IN AND ASSESS PT AND GET UPDATE NO NEW ORDER GIVEN TO NURSING AT THIS TIME.
[2022-09-12] MEDS: PANTOPRAZOLE 40 MG INJ VIAL IVP SCH (08:26)
[2022-09-12] MEDS: MIDODRINE 5 MG TAB PO SCH ×3 (08:26→18:04)
--- NOTE | 2022-09-12 08:43 | NUR ---
REPOSITION PT AND MEDS GIVEN THRU NGT CHECK PLACEMENT AND PATENCY NO RESIDUAL NOTED + GURGLING SOUND ON AUSCULTATION KEPT COMFORTABLE AND SAFE
--- NOTE | 2022-09-12 10:43 | NUR ---
CHECK GT RESIDUAL THRU DRAINAGE BAG BY GRAVITY 100 ML YELLOWISH LIQUID DRAIN NOTED, REPOSITION PT TO LEFT SIDE PT CALL LIGHT WITHIN REACH KEEP SAFE AND COMFORTABLE WILL CONTINUE TO MONITOR.
--- NOTE | 2022-09-12 12:04 | NUR ---
CALLED DR. RIDDLE TO FOLLOW UP PT GTUBE SITE LEAK AND AMOUNT OF DRAINAGE TO CHECK AFTER 24 HR MONITORING PT GT SITE HAS SCANT DRAINAGE THE GT DRAIN IS 150ML TOTAL [facility]. PT BG POC CHECK IS 114.
[2022-09-12] MEDS: THERAHONEY GEL 42.5 GM TP SCH (12:20)
[2022-09-12] MEDS: GAUZE TP SCH (12:21)
[2022-09-12] MEDS: ALGINATE ROPE MC SCH (12:21)
--- NOTE | 2022-09-12 12:45 | NUR ---
CALLED DR. RIDDLE REGARDING PT GT STOMA LEAK MADE REPORT OF PREVIOUS ASSESSMENT WITH NEW ORDER TO START GT FEEDNING START AT 20 INCREMENT EVERY 4H AND DIETARY CONSULT OK TO D/C NGT. Addendum: 09/12/22 at 1422 by KINDRA DANIELS RN ADDITIONAL ORDER CALLED AGAIN TO CARLO FOR THE DIETARY RECS FOR GT FEEDING AND OKAY TO DC NGT TILL NO SIGNS OF LEAKAGE ON GT STOMA SITE.
--- NOTE | 2022-09-12 13:44 | NUR ---
FNS CONSULT FOR TUBE FEEDING RECOMMENDATION FOR PATIENT RECEIVED ON 09/12/22. RD GAVE RECOMMENDATION TO RN AND PATIENT HAD FOLLOW UP WITH RD TODAY. FRANK MAGDALENO RD
--- NOTE | 2022-09-12 13:45 | NUR ---
DR. CHATMAN CAME IN AND ASSESS PT CHART AND LABS REVIEW DONE GET UPDATE ON NEW ORDER TO START GT FEEDING NO NEW ORDER FOR NURSING
--- NOTE | 2022-09-12 14:14 | NUR ---
AT 1400 START NGT FEEDING PER DIETARY RECOMMENDATION WITH PHUONGAY PER DR. RIDDLE TO START AT 20 INCREASE AT 10 AFTER 4 HR CHECK PLACEMENT + GURGLING SOUND ON AUSCULTATION MALDONADO MONITOR.
[2022-09-12] MEDS: DEXTROSE 10% 1,000 ML IV SCH (14:40)
--- NOTE | 2022-09-12 15:29 | NUR ---
09/12/22 RD FOLLOW UP COMPLETED PLEASE REFER TO NUTRITION ASSESSMENT UNDER CARE ACTIVITY FOR ESTIMATED NUTRITIONAL NEEDS. 1. WHEN/IF MEDICALLY APPROPRIATE, CONTINUE WITH NEPRO@30ML/HR TOLERATED WITH FWF 30ML Q6H OR PER MD. THIS WILL PROVIDE 1,296 CALORIES AND 58 GRAMS OF PROTEIN. 2. WILL MONITOR ENERGY INTAKE, NUTRITION-RELATED LAB VALUES, AND FLUID RETENTION. 3. RD TO FOLLOW-UP 2-3 DAYS, HIGH RISK FRANK MAGDALENO RD
--- NOTE | 2022-09-12 18:00 | NUR ---
GT FEEDING INCREMENT TO 10ML AT THIS TIME PT HAS 50 ML GT RESIDUAL TOLERATED WELL ONLY SCANT OOZING ON THE GT STOMA SITE. Addendum: 09/12/22 at 1934 by KINDRA DANIELS RN GTF RUNNING AT 20 ML/HR
--- NOTE | 2022-09-12 19:31 | NUR ---
ENDORSED PT TO KENNETH AND PASCUAL RICEBOARDMARKERCIRCUS HAND PT SBAR AND ALL QUESTIONS ANSWERED.
--- NOTE | 2022-09-12 19:35 | NUR ---
RECEIVED REPORT FROM DAY SHIFT NURSE. PATIENT IS AWAKE AND WATCHINGT TV. ON SEMI-GARDNER'S POSITION, SIDE RAILS UP X2, CALL LIGHT WITHIN REACH. TRACH TO VENT WITH SETTINGS: A/C PRVC, FIO2: 24%, VT:350, RATE 16, PEEP:5, O2 SAT 98%. NO DISTRESS NOTED. SR TO WHIRLEY OPERATOR. ANASARCA STILL NOTED. WITH LOWELL PICC LINE INTACT, PATENT, AND INFUSING IVF PER MD ORDERED. WITH LT UPPER CHEST HD CATHETER WITH DRESSING INTACT. ABDOMEN FIRM AND ACTIVE BOWEL SOUNDS. NGT TO LT NARES INTACT AND CLAMPED . MULTIPLE WOUNDS, DRESSINGS INTACT. SAFETY MEASURES IN PLACE. WILL CONTINUE TO MONITOR PT.
--- NOTE | 2022-09-12 19:38 | NUR ---
PHONE CALL TO DR RIDDLE, UPDATED ON TUBE FEEDING, OK TO USE GTUBE,REMOVED NGT AND DC D10W, CARRIED OUT
--- NOTE | 2022-09-12 20:15 | NUR ---
REPOSITIONED PT. REMOVED NGT PER MD ORDERED. PROVIDED ORAL CARE. KEPT COMFORTABLE. SAFETY PRECAUTION IN PLACE.
--- NOTE | 2022-09-12 21:55 | NUR ---
DR. RIDDLE CAME TO VISIT. UPDATE FOR PT. CONDITIONS. ALL QUESTIONS ANSWERED. NO NEW ORDERS.
[2022-09-13] VITALS (15 sets, daily range): BP systolic 102–133; BP diastolic 48–72; PULSE 89–105; RESP 16–24; TEMP 96.7–96.8; O2SAT 98–100
[2022-09-13] MEDS: BLOOD GLUCOSE MONITORING 1 DEV DEV FS SCH ×3 (00:25→12:32)
[2022-09-13] MEDS: Z-GUARD PASTE TP SCH ×2 (00:27→13:24)
--- NOTE | 2022-09-13 00:28 | NUR ---
NURSE GARNER CHECKED G-TUBE RESIDUAL OF 110ML. TUBE FEEDING CONTINUED PER MD ORDERED. ORAL CARE PROVIDED.
[2022-09-13] MEDS: ALBUTEROL SULFATE/IPRATROPIU 3 ML SOL IH SCH ×3 (00:50→13:21)
--- NOTE | 2022-09-13 02:30 | NUR ---
PT. IS ASLEEP AT THIS TIME. NOT IN DISTRESS. WILL CONTINUE TO MONITOR.
--- NOTE | 2022-09-13 04:15 | NUR ---
PT. VOMITED. GIVEN PRN MEDICATION FOR VOMITING PER MD ORDERED. RESIDUAL CHECKED AT 80 ML. TUBE FEEDING ON HOLD FOR NOW. WILL CHECK AFTER AN HOUR. REPOSITIONED. FLACC 0.
[2022-09-13] MEDS: ONDANSETRON 4 MG/2 ML VIAL IVP PRN ×2 (04:32→17:02)
[2022-09-13 04:54] LABS: BASOPHILS # (AUTO) 0.1 K/uL (0.00-0.22); BASOPHILS % (AUTO) 0.8 % (0.0-2.0); EOSINOPHILS # (AUTO) 0.3 K/uL (0-0.4); EOSINOPHILS % (AUTO) 4.6 % (0.0-4.0); HEMATOCRIT 23.9 % (36-48); HEMOGLOBIN 7.7 g/dL (12.0-16.0); LYMPHOCYTES # (AUTO) 2.5 K/uL (2.5-16.5); LYMPHOCYTES % (AUTO) 35.3 % (20.5-51.1); MEAN CORPUSCULAR HEMOGLOBIN 31 pg (27-31); MEAN CORPUSCULAR HGB CONC 32 g/dL (33-37); MEAN CORPUSCULAR VOLUME 96.7 fL (80-94); MONOCYTES # (AUTO) 0.9 K/uL (0.8-1.0); MONOCYTES % (AUTO) 12.9 % (1.7-9.3); NEUTROPHILS # (AUTO) 3.3 K/uL (1.8-7.7); NEUTROPHILS % (AUTO) 46.4 % (42.2-75.2); PLATELET COUNT (AUTO) 118 K/uL (140-450); RED BLOOD CELL COUNT(AUTO) 2.47 MIL/uL (4.20-5.40); RED CELL DISTRIBUTION WIDTH 19.7 % (11.6-13.7)
[2022-09-13] MEDS: METOCLOPRAMIDE 10 MG/2 ML INJ VIAL IVP SCH ×2 (05:16→12:06)
[2022-09-13 05:25] LABS: ANION GAP 11.4 (8-16); ASPARTATE AMINOTRANSFERASE 20 U/L (15-37); CARBON DIOXIDE 29.6 mmol/L (21-32); CHLORIDE 100 mmol/L (98-107); CREATININE 3.2 mg/dL (0.6-1.3); GLUCOSE 114 mg/dL (74-106); SODIUM SERUM 137 mmol/L (136-145); TOTAL BILIRUBIN 1.1 mg/dL (0.0-1.0); UREA NITROGEN, BLOOD 11 mg/dL (7-18)
[2022-09-13] MEDS: LEVOTHYROXINE 0.1 MG TAB PO SCH (05:46)
--- NOTE | 2022-09-13 07:00 | NUR ---
RECEIVED PT FROM PASCUAL AND KENNETH COMPUTER SYSTEM TECHNICIANOIL AND GAS DRAFTER PT IS ADMIT FOR HYPOXIA PT VS. 89 HR SINU RHYTHYM 100% O2 SAT ON TRACHE TO VENT AC/PRVC FIO2 24% TV 350 RR 16 PEEP 5 RR 16 BP 102/48 TEMP 96.7 PT IS AROUSABLE TO VOICE AND STIMULI HAS EPISODE OF SHAKING HER HAND WHEN STIMULATED THRU SUCTION AND REPOSITIONING PT HAS GTUBE WITH GTF FEEDING ON NEPHRO 30ML AND FWF 30 ML Q12HR PT HAS FIRM DISTENDED ABDOMEN NON TENDER. PT HAS NO BM AND ANURIC PT IS DIALYSIS PT PICC LINE ON LOWELL WITH DUAL CAP BOTH PORT. PT HAS LEFT CHEST PERMACATH CLEAN AND INTACT DRESSING PT HAS MUITPLE SKIN PROBLEM WITH WOUND CARE TREATMENT. PER REPORT PT HAS HD SCHEDULE TODAY AND PT TOLERATED FEEDING WITH ONLY 150 ML OF RESIDUAL WITH X1 EPISODE OF VOMITING. PT GT STOMA SCANT OOZING WITH DRESSING INTACT. CALL LIGHT WITHIN REACH KEPT BED LCKED AND LOW PISITION WILL CONTINUE OSCAR MONITOR..
--- NOTE | 2022-09-13 07:30 | NUR ---
ENDORSED PT TO DAYSHIFT NURSE. ALL QUESTIONS ANSWERED.
[2022-09-13] MEDS: PANTOPRAZOLE 40 MG INJ VIAL IVP SCH (07:44)
[2022-09-13] MEDS: MIDODRINE 5 MG TAB PO SCH ×3 (07:45→17:00)
--- NOTE | 2022-09-13 08:00 | NUR ---
REPOSITION PT TO RIGHT SIDE RECHECK GT RESIDUAL IS 50ML FOR MEDS TODAY SMALL OOZING ON GT SITE WITH DRESSING INTACT. WILL PREP FOR DRESSING CHANGE AT NOON. NO SOB
--- NOTE | 2022-09-13 10:00 | NUR ---
PT REPOSITION TO LEFT SIDE PT NO BM NO URINE ALL DRESSING IS INTACT NO SOB.
[2022-09-13] MEDS ORDERED: ALBUMIN HUMAN 25% 50 ML IV ONE (10:40)
[2022-09-13] MEDS ORDERED: ALBUMIN HUMAN 25% 100 ML IV SCH (11:00)
--- NOTE | 2022-09-13 11:40 | NUR ---
HD NURSE CAME START HD FOR PT VS WNL
--- NOTE | 2022-09-13 11:53 | NUR ---
DR. CHATMAN CAME IN AND ASSESS PT GET UPDATE FOR PT CONDITION NO NEW ORDER GIVEN.
--- NOTE | 2022-09-13 12:34 | NUR ---
DR. ST CAME IN AND SEE PT GET UPDATE NO NEW ORDER GIVEN.
[2022-09-13] MEDS: GAUZE TP SCH (13:21)
[2022-09-13] MEDS: ALGINATE ROPE MC SCH (13:22)
[2022-09-13] MEDS: THERAHONEY GEL 42.5 GM TP SCH (13:24)
--- NOTE | 2022-09-13 15:00 | NUR ---
PT HD DONE PER NURSE TOOK 3 L OUT TOLERATED WELL.
--- NOTE | 2022-09-13 15:30 | NUR ---
CALLED [facility] AND GAVE REPORT TO KSENIA RICE FOR PT ADMISSION GOING TO ROOM 225 A ALL QUESTION ANSWERED ON SBAR REPORT.
--- NOTE | 2022-09-13 15:53 | NUR ---
Pt.'s Son Isai Silva contacted and informed that his mother will be discharged back [facility] for futher care. Pt. is table for transfer. NO acute distress. Pt. on ventilator with trach in place. Pt. finished dialysis with no difficulty. G-Tube in place with tube feeding in place with NO leakage from the site and dressing intact. Pt.'s primary RN aware of pt.'s discharge.
--- NOTE | 2022-09-13 16:45 | NUR ---
DISCHARGE WOUND ASSESSMENT DONE WITH CHARGE NURSE NICOLETTE WOUND CARE TREATMENT PER ORDER OF WOUND CARE APPLIED. DRESSING CHANGE DONE. PICTURES TAKEN AND KEEP ON CHART FOR RECORD.
--- NOTE | 2022-09-13 17:00 | NUR ---
PT HAS X1 EPISODE OF VOMITING YELLOW MILKY COLOR GAVE ZOFRAN ORDERED.
--- NOTE | 2022-09-13 17:00 | NUR ---
RT CALLED TO PT BEDSIDE TO CHANGE GAUZE AND TRACH TIES DUE TO PT VOMITING YELLOW MILKY. TRACH TIES ARE CHANGED, HME CHANGED , GAUZE CHANGED, STOMA NORMAL NO REDNESS OR IRRITATION NOTED. PT WAS HANDED OFF TO [facility] NURSE FOR TRANSFER . AT THIS TIME PT SATURATION 96% ON 24% FIO2 .
--- NOTE | 2022-09-13 17:29 | NUR ---
[facility] CAME IN WITH Laureen MCCAULEY ACLS FOR PT GAVE REPORT ASSIST PT IN TRANSPORT. Addendum: 09/13/22 at 1731 by KINDRA DANIELS RN VS/ 108 SINUS TACHY, 96% O2 SAT ON 24% FIO2 BP 128/71 AND TEMP 96.9 Addendum: 09/13/22 at 1805 by KINDRA DANIELS RN PT LEFT WITH [facility] AND FARRUKH RICE
== END 2022-09-13 17:40 | DRG 870 ==
LOC: MED 16:07 → MMU 19:17 → MIC 19:51
PROC: 5A1955Z Respiratory Ventilation, Greater than 96 Consecutive Hours (ICD-10-PCS; principal; 2022-08-21)
PROC: 5A1D70Z Performance of Urinary Filtration, Intermittent, Less than 6 Hours Per Day (ICD-10-PCS; 2022-08-22)
PROC: 02H633Z Insertion of Infusion Device into Right Atrium, Percutaneous Approach (ICD-10-PCS; 2022-08-23)
PROC: 5A1D70Z Performance of Urinary Filtration, Intermittent, Less than 6 Hours Per Day (ICD-10-PCS; 2022-08-24)
PROC: 3E0336Z Introduction of Nutritional Substance into Peripheral Vein, Percutaneous Approach (ICD-10-PCS; 2022-08-25)
PROC: 5A1D70Z Performance of Urinary Filtration, Intermittent, Less than 6 Hours Per Day (ICD-10-PCS; 2022-08-26)
PROC: 5A1D70Z Performance of Urinary Filtration, Intermittent, Less than 6 Hours Per Day (ICD-10-PCS; 2022-08-27)
PROC: 02HV33Z Insertion of Infusion Device into Superior Vena Cava, Percutaneous Approach (ICD-10-PCS; 2022-08-27)
PROC: 5A1D70Z Performance of Urinary Filtration, Intermittent, Less than 6 Hours Per Day (ICD-10-PCS; 2022-08-28)
PROC: 0JPT3XZ Removal of Tunneled Vascular Access Device from Trunk Subcutaneous Tissue and Fascia, Percutaneous Approach (ICD-10-PCS; 2022-08-28)
PROC: 02PAX3Z Removal of Infusion Device from Heart, External Approach (ICD-10-PCS; 2022-08-28)
PROC: 02HV33Z Insertion of Infusion Device into Superior Vena Cava, Percutaneous Approach (ICD-10-PCS; 2022-08-28)
PROC: B548ZZA Ultrasonography of Superior Vena Cava, Guidance (ICD-10-PCS; 2022-08-28)
PROC: 02PAX3Z Removal of Infusion Device from Heart, External Approach (ICD-10-PCS; 2022-08-28)
PROC: 5A1D70Z Performance of Urinary Filtration, Intermittent, Less than 6 Hours Per Day (ICD-10-PCS; 2022-08-30)
PROC: 5A1D70Z Performance of Urinary Filtration, Intermittent, Less than 6 Hours Per Day (ICD-10-PCS; 2022-09-01)
PROC: 02HV33Z Insertion of Infusion Device into Superior Vena Cava, Percutaneous Approach (ICD-10-PCS; 2022-09-01)
PROC: 5A1D70Z Performance of Urinary Filtration, Intermittent, Less than 6 Hours Per Day (ICD-10-PCS; 2022-09-02)
PROC: 30233N1 Transfusion of Nonautologous Red Blood Cells into Peripheral Vein, Percutaneous Approach (ICD-10-PCS; 2022-09-02)
PROC: 5A1D70Z Performance of Urinary Filtration, Intermittent, Less than 6 Hours Per Day (ICD-10-PCS; 2022-09-04)
PROC: 0D20XUZ Change Feeding Device in Upper Intestinal Tract, External Approach (ICD-10-PCS; 2022-09-06)
PROC: 5A1D70Z Performance of Urinary Filtration, Intermittent, Less than 6 Hours Per Day (ICD-10-PCS; 2022-09-07)
PROC: 5A1D70Z Performance of Urinary Filtration, Intermittent, Less than 6 Hours Per Day (ICD-10-PCS; 2022-09-09)
PROC: 5A1D70Z Performance of Urinary Filtration, Intermittent, Less than 6 Hours Per Day (ICD-10-PCS; 2022-09-11)
PROC: 0JH63XZ Insertion of Tunneled Vascular Access Device into Chest Subcutaneous Tissue and Fascia, Percutaneous Approach (ICD-10-PCS; 2022-09-11)
PROC: 05HY33Z Insertion of Infusion Device into Upper Vein, Percutaneous Approach (ICD-10-PCS; 2022-09-11)
PROC: 02PYX3Z Removal of Infusion Device from Great Vessel, External Approach (ICD-10-PCS; 2022-09-11)
PROC: B544ZZA Ultrasonography of Left Jugular Veins, Guidance (ICD-10-PCS; 2022-09-11)
PROC: B514ZZA Fluoroscopy of Left Jugular Veins, Guidance (ICD-10-PCS; 2022-09-11)
PROC: 5A1D70Z Performance of Urinary Filtration, Intermittent, Less than 6 Hours Per Day (ICD-10-PCS; 2022-09-13)
DX: A41.9 Sepsis, unspecified organism (principal); I50.43 Acute on chronic combined systolic (congestive) and diastolic (congestive) heart failure; N17.0 Acute kidney failure with tubular necrosis; N18.6 End stage renal disease; J96.21 Acute and chronic respiratory failure with hypoxia; R65.21 Severe sepsis with septic shock; R53.2 Functional quadriplegia; J69.0 Pneumonitis due to inhalation of food and vomit; E43 Unspecified severe protein-calorie malnutrition; T80.211A Bloodstream infection due to central venous catheter, initial encounter; L03.311 Cellulitis of abdominal wall; I13.2 Hypertensive heart and chronic kidney disease with heart failure and with stage 5 chronic kidney disease, or end stage renal disease; Z99.11 Dependence on respirator [ventilator] status; G93.49 Other encephalopathy; J95.851 Ventilator associated pneumonia; I42.9 Cardiomyopathy, unspecified; R18.8 Other ascites; Z20.822 Contact with and (suspected) exposure to COVID-19; Y83.3 Surgical operation with formation of external stoma as the cause of abnormal reaction of the patient, or of later complication, without mention of misadventure at the time of the procedure; Y84.8 Other medical procedures as the cause of abnormal reaction of the patient, or of later complication, without mention of misadventure at the time of the procedure; E03.9 Hypothyroidism, unspecified; Y95 Nosocomial condition; F01.50 Vascular dementia, unspecified severity, without behavioral disturbance, psychotic disturbance, mood disturbance, and anxiety; L89.896 Pressure-induced deep tissue damage of other site; L89.150 Pressure ulcer of sacral region, unstageable; D63.8 Anemia in other chronic diseases classified elsewhere; I48.91 Unspecified atrial fibrillation; D53.9 Nutritional anemia, unspecified; E66.9 Obesity, unspecified; E11.51 Type 2 diabetes mellitus with diabetic peripheral angiopathy without gangrene; E11.22 Type 2 diabetes mellitus with diabetic chronic kidney disease; Y92.89 Other specified places as the place of occurrence of the external cause; Z99.2 Dependence on renal dialysis; Z74.01 Bed confinement status; Z86.73 Personal history of transient ischemic attack (TIA), and cerebral infarction without residual deficits; Z93.0 Tracheostomy status; Z68.34 Body mass index [BMI] 34.0-34.9, adult
CPT/HCPCS: 36415; 36600; 51702; 71045; 74018; 76705; 80048; 80053; 80202; 81001; 82040; 82803; 82948; 83036; 83605; 83735; 83880; 84100; 84443; 84478; 84484; 85025; 85610; 85730; 86706; 86886; 86900; 86901; 86920; 87040; 87070; 87075; 87081; 87086; 87186; 87205; 87340; 89220; 93925; 93970; 94002; 94003; 94640; 96365; 96368; 99285; A9153; C1750; C1758; C9113; J0696; J0713; J0770; J0885; J1644; J1815; J1956; J2001; J2185; J2248; J2250; J2405; J2543; J2704; J2765; J3010; J3370; J3475; J3490; J7030; J7060; P9016; P9041; P9046; Q0092; Q5106